=== PATIENT | male | born 1965 | race Caucasian/White ===

== ENCOUNTER 2016-12-12 02:55 | Observation (INO) | payer SELFPAY ==
[2016-12-12 06:02] LABS: Troponin I 0.025 ng/mL (< 0.028)
[2016-12-12 06:50] VITALS: BMI 22.7
[2016-12-12] MEDS ORDERED: Acetaminophen 325 MG TAB PO PRN (07:22)
[2016-12-12] MEDS ORDERED: Ondansetron HCl/PF 4 MG/2 ML Vial IVP PRN (07:22)
[2016-12-12] MEDS ORDERED: Nitroglycerin 0.4 MG TAB (25 Tab Bottle) PO PRN (07:22)
[2016-12-12] MEDS ORDERED: Furosemide 20 MG TAB PO PRN (07:31)
--- NOTE | 2016-12-12 07:51 | HP ---
PRIMARY CARE PROVIDER: Dr. Jasper Barton CHIEF COMPLAINT: The patient was referred to the [facility] by [facility] after transfer from [facility]. HISTORY OF PRESENT ILLNESS: The patient has chest pain, pressure-like, even at rest 5-10 minutes, a ssociated with some shortness of breath, stomach cramps up to 2-3 times a day for the past 3 weeks. He states he is having anxiety attacks which causes chest pains, feels like somebody is out to get him. He states he has had suicidal ideations, he gives no plan. He states he tried suicide 25 year s ago by taking pills. He is an alert, oriented. PAST MEDICAL HISTORY: Coronary artery bypass post-NH 5 years ago, history of cardiomyopathy, hypert ension, dyslipidemia, irritable bowel syndrome, proximal abdominal aorta occlusion, dyslipidemia, ch olecystectomy. He has had PCI with stents post-bypass graft. ALLERGIES: No known drug allergies. SOCIAL HISTORY: He smokes a pack of cigarettes a day. Admits to using marijuana. FAMILY HISTORY: Significant for coronary artery disease in his father. CODE STATUS: Full. No next of kin given for this study. CURRENT MEDICATIONS: Hydralazine 10 mg twice a day, aspirin 325 mg a day, lisinopril 20 mg a day, C oreg 25 mg twice a day, atorvastatin 40 mg a day, Lasix 20 mg a day, clonidine patch TTS 1 on skin d aily, changed weekly. REVIEW OF SYSTEMS: GENERAL: Some dizziness, headaches with present illness. No fever, sweats or chills. EYES: He says he has blurred vision at times. No double vision, flashing lights. ENT: No ear pain or drainage. No nasal bleeding. No trouble swallowing. CARDIAC: See present illness. No orthopnea or paroxysmal nocturnal dyspnea. RESPIRATIONS: He has got a dry cough daily, no wheezing, no marked dyspnea on exertion. GASTROINTESTINAL: Occasional diarrhea, no nausea, vomiting. He does have abdominal cramps with thi s chest pain. GENITOURINARY: No hematuria, dysuria. NEUROLOGICAL: No strokes, seizures or focal weakness. PSYCHIATRIC: See present illness. SKIN: No bruising, bleeding or rash. HEME/LYMPH: No tender or swollen lymph nodes in axilla, inguinal or cervical area. PHYSICAL EXAMINATION: GENERAL: He looks 10-15 years older than stated age, ill kempt. VITAL SIGNS: Blood pressure 177/77, pulse 66, respirations 20, temperature 98.3, O2 sat 98. HEENT: Reveal pupils equal, round, and reactive to light. Extraocular movements are intact. Scler ae white. Tympanic membranes clear. Nose clear. Throat is clear. Oral mucous membranes are wet. Dental hygiene is good. NECK: Supple, no jugular venous distention, adenopathy or thyromegaly. CHEST: Clear to auscultation and percussion. HEART: Regular rate and rhythm. First and second heart sounds are clear. There are no appreciated murmurs or gallops. ABDOMEN: Soft, bowel sounds are normal. There is no hepatosplenomegaly, no mass, no rebound, no br uits. EXTREMITIES: No cyanosis, clubbing or edema. PULSES: Carotid, radial, femoral, and dorsalis pedis pulses symmetric and palpable. SKIN: The skin is warm and dry, no bruises or rash. HEME/LYMPH: No tender or swollen lymph nodes in axilla, inguinal or cervical area. NEUROLOGIC: Cranial nerves II-XII are intact. Deep tendon reflexes symmetric. X-RAY FINDINGS: Chest x-ray reviewed by me, no CHF, infiltrate or cardiomegaly. EKG, reviewed by falguni lewis, regular sinus rhythm, possible old inferior infarct, complete right bundle branch block, reviewed by me. LABORATORY: Laboratory done in [place]; white count 13.5, hemoglobin 14.1, platelet count 261, 000. INR 1.1. Comp metabolic profile essentially normal, chloride 111, CO2 21. BNP is 149. Cardi ac enzymes normal x2. ADMITTING DIAGNOSES: 1. Chest pain. 2. Anxiety, depression with suicidal ideation. 3. Coronary artery disease. 4. Continuing tobacco abuse. 5. Hypertension. 6. Dyslipidemia. PLAN: 1. Reinstitute medicines. 2. Probable consult to Cardiology for medical clearance. If all else is good we will proceed with [facility] referral.
[2016-12-12 08:05] LABS: Troponin I 0.019 ng/mL (< 0.028)
[2016-12-12] MEDS ORDERED: Aspirin 325 MG TAB PO SCH (09:00)
[2016-12-12] MEDS ORDERED: Non-Formulary Item 1 EACH (Nifedipine [Nifedipine Er] 90 MG) PO SCH (09:00)
[2016-12-12] MEDS ORDERED: Non-Formulary Item 1 EACH (Hydralazine Hcl [Hydralazine Hcl] 100 MG) PO SCH (09:00)
[2016-12-12] MEDS ORDERED: NIFEdipine XL 90 MG TAB PO SCH (09:00)
[2016-12-12] MEDS: Aspirin 325 MG TAB PO SCH (10:48)
[2016-12-12] MEDS: Bupropion 150 MG SR TAB PO SCH ×2 (10:48→20:57)
[2016-12-12] MEDS: Carvedilol 25 MG TAB PO SCH ×2 (10:49→20:57)
[2016-12-12] MEDS ORDERED: Communication Order-Pharmacy FS SCH (12:45)
--- NOTE | 2016-12-12 13:54 | CON ---
DATE OF CONSULTATION: 12/12/2016 REFERRAL PHYSICIAN: Dr. Ng PRIMARY CARE PHYSICIAN: Dr. Jasper Barton PRIMARY HOT PACKER: Dr. Tanisha Stewart REASON FOR CONSULTATION: Chest pain. HISTORY OF PRESENT ILLNESS: Mr. Justin is a 51-year-old male with significant history of manic depression, coronary artery disease with a history of coronary artery bypass grafting and multiple stent placement, high blood pressure, hypertension, severe peripheral vascular disease. The patient was discharged from [facility] in 07/2016 due to chest pain. At that time his stress test in 07/2016 showed normal prior to the discharge to home. Since then he has had intermittent chest pain and heaviness all over the middle of his chest. Then, about last few weeks ago, he started to experience heaviness and pressure-like pain all over his chest, accompanied with shortness of breath and dizziness. On 12/12/2016 he started having those symptoms with pain in the upper back and numbness in the left shoulder, nausea, dizziness and cold sweats and shivering-like sensation from inside, therefore, the patient decided to present to the [facility] in [facility] for further studies and treatment. During the Cardiology consultation assessment, he is still complained those symptoms. At this time, he denied any chest pain or heaviness or discomfort in his chest or palpitations or fluttering in his chest or any other symptoms. However, sometimes he feels pressure-like symptoms when he is stressed out. He has a history of a coronary artery bypass graft in 2012. Prior to that, the patient has a history of a myocardial infarction. He underwent first stent placement x1 in 2005, second one in 2016 and third one in 2008. He has had a total of 4 stent placements. In 2012 he underwent cardiac catheterization which revealed severe coronary artery disease with subtotal stenosis of large intermediate branch and also right coronary artery which had previous stents and also 100% occlusion of the left circumflex and severe distal aortic disease with peripheral vascular disease which may need intervention. However, he has not followed up with any food safety field specialist since then. He denied any intervention except a coronary artery bypass in 2012. He was diagnosed as manic depression when he was around 25-26 years old when he tried suicide. At that time he was on Prozac, but he has stopped taking the medicine after 1 year because he was very drowsy and he could not function well with the medicine. His last echocardiogram was done in 2014 which shows EF of 55-60% with grade II diastolic dysfunction with biatrial enlargement and moderate to severe mitral regurgitation. He noticed intermittent edema in the bilateral lower extremities , but he denies any pain in his bilateral calves when he is walking. At this time, the patient has a sitter in his room for suicidal precaution. PAST MEDICAL HISTORY: 1. Coronary artery bypass in 2012 2. Multiple stent placements, total of 4 stents from [id number]. 3. History of cardiomyopathy with moderate to severe mitral valve regurgitation. 4. Hypertension. 5. Dyslipidemia. However, he is not taking any cholesterol medication at this time. 6. Irritable bowel syndrome. 7. Paroxysmal abnormal aorta occlusion. 8. History of manic depression. PAST SURGICAL HISTORY: Cholecystectomy in 2002. FAMILY HISTORY: There is a significant history for coronary artery disease, cerebrovascular accident, hypertension, diabetes in both sides, paternal and maternal side. SOCIAL HISTORY: He lives with his . He has 1 child who lives well. He used to drink. He quit drinking since 2005. He still smokes a pack of the day. He also uses marijuana almost every day when he gets really stressed out and prevent attempted suicide. Last use was day before yesterday. ALLERGIES: He is allergic to PROZAC which makes drowsy and he could not function well. REVIEW OF SYSTEMS: The following complete review of systems was negative, unless otherwise mentioned in the HPI or below. CONSTITUTIONAL: Weight loss or gain, sense of well being, exercise tolerance. SKIN: Negative rash, itching, change in hair growth or loss, nail changes, breast lumps, tenderness, swelling, nipple discharge. EYES: Vision change, double vision, tearing, blind spots, pain. ENT: Headache, vertigo, lightheadedness, nose bleeding or obstruction, discharge, dental difficulties, gingival bleeding, dentures, neck stiffness, pain, tenderness, mass in the thyroid or other areas. CARDIOVASCULAR: Palpitations, syncope, dyspnea on exertion, orthopnea, nocturnal dyspnea, cyanosis, claudication. RESPIRATORY: Shortness of breath, pain, wheezing, stridor, cough, hemoptysis. GASTROINTESTINAL: Positive for poor appetite, and he has heartburn almost every time after eating. Negative to abdominal pain, nausea, vomiting, jaundice , recent change in bowel habit, but he complained of constipation. He uses the bathroom once every 2 or 3 days. GENITOURINARY: Urgency, frequency, dysuria, nocturia, hematuria, polyuria, oliguria, having urine, change in size of stream, dribbling, acute retention or incontinence. MUSCULOSKELETAL: Pain, swelling, redness or heat of muscle or joint, limitation of motion, muscular weakness, atrophy, cramps. NEUROLOGIC: Seizure, conversion, paralysis, tremor, incoordination, difficulty with memory or speech. PSYCHIATRIC HISTORY: Positive emotional problem, anxiety and depression. He mentioned that he cannot go out, he feels panicky when somebody tried to reach him or call him. PHYSICAL EXAMINATION: VITAL SIGNS: Blood pressure 177/77, heart rate 66, temperature 98.3, O2 sat 98 % with room air. GENERAL: Well-developed, without acute distress at this moment. However, he has a sitter at the bedside for suicidal precaution. HEAD: Normocephalic, atraumatic. EYES: Extraocular muscles movements are intact. ENT: Oral and nasal mucosa are moist without lesion. NECK: No JVD. Neck is supple and normal range of motion. LUNGS: Clear to auscultate bilaterally. No wheezing, rales or rhonchi noted. CARDIOVASCULAR: Regular rate and rhythm, normal S1, S2. There are no S3 or S4. There is significant murmur in the left upper mid sternal border, but no hives, thrill, bruit or rub noted. There are 2+ bilateral dorsalis pedis, posterior tibial, and popliteal pulses are present. Carotid pulse present with a bruit on the right carotid artery. There is no edema in his bilateral lower extremities. ABDOMEN: Soft, nontender or mass to palpitations and nondistended. Bowel sounds are present. MUSCULOSKELETAL: Able to move all extremities. No calf tenderness. SKIN: Warm and dry. No skin rash, lesion or bruise noted. NEUROLOGY: Alert, oriented x4, awake. Nonfocal. PSYCHIATRIC: Mood, affect is unstable. During the interview, he started crying when he expressed about his depression. EKG; 12 lead EKG at the ER revealed sinus rhythm with right bundle joce block with heart rates 60s with no significant ST segment change, possible old inferior infarct. LABORATORY: Troponin level was 0.025 and 0.019. Chest x-ray revealed no acute cardiopulmonary abnormality. ASSESSMENT AND PLAN: 1. Chest pain. Although the patient's stress test in 07/2016 was negative and 2 troponin levels were negative, due to his cardiovascular history, it will be beneficial for him to undergo another cardiac catheterization. I would like to discuss with Dr. Stewart for further recommendations. 2. History of manic depression. At this time, the sitter at bedside for suicide precaution after he expressed he would like to receive some assistance or help treatment for his depression and anxiety issues. According to his primary care doctor he is going to have [facility] referral as soon as he is discharged from this hospital. 3. Coronary artery disease with history of coronary artery bypass graft and multiple stent placements. We would like to continue to monitor on telemetry. 4. Pulmonary vascular disease. Cardiac catheterization in 2012 revealed severe distal aortic disease with peripheral vascular disease which may require intubation, it is beneficial for him to have another cardiac catheterization in to reevaluate. I would like to discuss with Dr. Stewart 5. Hypertension. I would like to the patient's lisinopril. I would like to start Norvasc 5 mg 1 tablet daily and continue to monitor his blood pressure. 6. Dyslipidemia. He is on a cholesterol, atorvastatin 40 mg once a day. His LDL in 2014 was 169. 7. Tobacco abuse. Tobacco cessation education was given to the patient. Thank you very much allowing the Cardiology Service to participate in the care of the patient. We will follow along with the patient's care team and make further recommendations as appropriate. [facility]
[2016-12-12] MEDS ORDERED: Nitroglycerin 2% Ointment 1 INCH/1 GM Packet TOP SCH (14:00)
[2016-12-12] MEDS ORDERED: Labetalol HCl 100 MG/20 ML VIAL SLOW IVP PRN (19:56)
[2016-12-12] MEDS ORDERED: Non-Formulary Item 1 EACH (Lisinopril [Zestril] 40 MG) PO SCH (21:00)
[2016-12-12] MEDS ORDERED: Lisinopril 20 MG TAB PO SCH (21:00)
[2016-12-12] MEDS ORDERED: Atorvastatin Calcium 40 MG TAB PO SCH (21:00)
[2016-12-12 22:35] LABS: Amphetamine Not Detected (NotDetected); Methadone Not Detected (NotDetected); Methamphetamine Not Detected (NotDetected)
--- NOTE | 2016-12-12 22:35 | PDOC.CTH ---
Cardiology Progress Note - Subjective The pt. was seen and evaluated by me. Please refer to the consult dictation by the DIRECTOR ENERGY. This unfortunate pt. hs severe CAD and is s/p CABG and priort coronary stent placement.He continues to smoke and is noncompliant with follow up and taking his medicayions. This seems to be in part due to lack of finances He has severe PVD and I could not palpate pedal or popliteal pulses. This PVD was noted on his prior cardiac cath. Due to his multiple risk factors, I believe it will be reasonable tore-evaluate his coronary anatomy and PVD. I explained the procedure and risks to him to include bleeding,infection,renal insuff., CVA, [place] or . He is agreeable to proceed. I will plan for cardiac cath in AM. - ROS shortness of breath - Objective Vital Signs Temp Pulse Resp BP BP Pulse Ox 12/12/16 22:15 69 197/84 H 12/12/16 21:00 98.3 F 60 16 186/77 H 97 12/12/16 20:57 183/77 H 12/12/16 20:56 63 186/77 H 12/12/16 20:10 98.3 F 63 16 12/12/16 16:29 63 183/77 H 12/12/16 10:48 66 177/77 H Weight 145 lb 3.2 oz 12/11/16 12/12/16 12/13/16 06:59 06:59 06:59 Intake Total 360 Balance 360 - Physical Examination General/Neuro: alert & oriented x3 Neck: no JVD present Lungs: CTA Heart: RRR Abdomen: no HSM, soft - Labs Troponin/CKMB Troponin I 0.019 ng/mL (< 0.028) 12/12/16 07:27 - Assessment/Plan I agree with the A/P outlined by the DIRECTOR ENERGY. Plan for cath in AM.
[2016-12-13] MEDS: Carvedilol 25 MG TAB PO SCH (05:34)
[2016-12-13] MEDS: Bupropion 150 MG SR TAB PO SCH (05:35)
[2016-12-13] MEDS ORDERED: Lidocaine 1% (PF) 30 ML VIAL ONE (07:43)
[2016-12-13] MEDS ORDERED: Nitroglycerin 100MG/250ML BOT 250 ML ONE (07:58)
[2016-12-13] MEDS ORDERED: Heparin 10,000 UNITS/1 ML VIAL ONE (07:59)
[2016-12-13] MEDS ORDERED: FLU VACC QS2017-18 36 mo. & older 0.5 ML SYRINGE IM ONE (09:00)
--- NOTE | 2016-12-13 09:07 | PDOC.PN ---
- Subjective Encounter Start Date: 12/13/16 Encounter Start Time: 09:05 Subjective: post cardiac cath, no pain - Objective Resuscitation Status: Resuscitation Status FULL:Full Resuscitation MAR Reviewed: Yes Vital Signs & Weight: Vital Signs (12 hours) Temp Pulse Resp BP BP Pulse Ox 12/13/16 05:35 60 12/13/16 05:34 60 12/13/16 04:00 98.1 F 60 18 125/55 L 97 12/12/16 22:15 69 197/84 H Weight Weight 135 lb 8 oz I&O: 12/12/16 12/13/16 12/14/16 06:59 06:59 06:59 Intake Total 600 Output Total 950 Balance -350 Phys Exam - Physical Examination Constitutional: NAD Neck: no JVD Respiratory: clear to auscultation bilateral Cardiovascular: RRR, no significant murmur Gastrointestinal: soft Musculoskeletal: no edema Dx/Plan (1) Chest pain Code(s): R07.9 - CHEST PAIN, UNSPECIFIED Status: Acute Qualifiers: Chest pain type: precordial pain Qualified Code(s): R07.2 - Precordial pain (2) CAD (coronary artery disease) Code(s): I25.10 - ATHSCL HEART DISEASE OF [place] CORONARY ARTERY W/O ANG PCTRS Status: Chronic Qualifiers: Coronary Disease-Associated Artery/Lesion type: [place] artery [place] vs. transplanted heart: [place] heart Associated angina: angina presence unspecified Qualified Code(s): I25.10 - Atherosclerotic heart disease of [place] coronary artery without angina pectoris (3) HTN (hypertension) Code(s): I10 - ESSENTIAL (PRIMARY) HYPERTENSION Status: Chronic Qualifiers: Hypertension type: essential hypertension Qualified Code(s): I10 - Essential (primary) hypertension (4) Dyslipidemia Code(s): E78.5 - HYPERLIPIDEMIA, UNSPECIFIED Status: Chronic - Plan post cath- discuss with cardiology -: cont asa, statin, bblocker, ZENY * .
[2016-12-13] MEDS ORDERED: traMADol HCl 50 MG TAB PO PRN (09:22)
[2016-12-13] MEDS ORDERED: Acetaminophen/Codeine 30-300mg Tablet PO PRN ×2 (09:22)
[2016-12-13] MEDS ORDERED: Nitroglycerin 0.4 MG TAB (25 Tab Bottle) SL PRN (09:22)
[2016-12-13] MEDS ORDERED: Sodium Chloride 0.9% 200 ML IV SCH (09:22)
[2016-12-13] MEDS: Aspirin 325 MG TAB PO SCH (10:30)
[2016-12-13] MEDS ORDERED: Iopamidol 370 76% 100 ML VIAL ONE (14:34)
--- NOTE | 2016-12-13 17:56 | DIS ---
DATE OF ADMISSION: 12/12/2016 DATE OF DISCHARGE: 12/13/2016 DISPOSITION: Discharged home. PRIMARY CARE PROVIDER: Jasper Barton D.O. FINAL DIAGNOSES: Chest pain, coronary artery disease, dyslipidemia, hypertension, gastroesophageal reflux disease, suicidal ideations. DISCHARGE MEDICATIONS: Same as his home medicines. Bupropion 150 twice a day, Lipitor 40 mg a day, Imdur 60 mg twice a day, Lasix 20 mg a day, Coreg 25 mg twice a day, NicoDerm patch 14 mg daily as needed, Zestril 40 mg a day, nifedipine 90 mg a day, hydralazine 100 mg 3 times a day, Catapres 0.1 mg q.8 hours, aspirin 325 mg a day. ALLERGIES: No known drug allergies. PENDING AT THE TIME OF DISCHARGE: Nothing. CODE STATUS: FULL. HOSPITAL COURSE: The patient admitted through [facility] with complaints of pressure d chest pain, shortness of breath, stomach cramps, anxiety attacks which caused that. He stated he has had suicidal ideations, but had no plan. He was placed in the hospital and troponins were unrev ealing. Toxicology revealed only positive THC. He had a cardiac catheterization today by Dr. Ag Stewart, who saw him in consultation, which revealed extensive disease with medical management only ind icated. He was seen by [facility] who evaluated him and considered him to be safe to discharge with follo w up with [facility]. DIET: Heart healthy. PLAN: Follow up with Dr. Barton in 7 days. Follow up per [facility].
[2016-12-13 21:43] VITALS: TEMP 98.2
[2016-12-13 21:50] VITALS: BP 176/68
== END 2016-12-13 19:44 | disposition home or self-care (01) ==
LOC: ERS 02:55 → 2NO 05:18
PROVIDERS: ADMIT Internal Medicine; ATTEND Internal Medicine
DX: R07.9 Chest pain, unspecified (principal); I25.10 Atherosclerotic heart disease of native coronary artery without angina pectoris; E78.5 Hyperlipidemia, unspecified; K21.9 Gastro-esophageal reflux disease without esophagitis; R45.851 Suicidal ideations; F41.0 Panic disorder [episodic paroxysmal anxiety]; I25.2 Old myocardial infarction; I11.9 Hypertensive heart disease without heart failure; K58.9 Irritable bowel syndrome, unspecified; I74.09 Other arterial embolism and thrombosis of abdominal aorta; F17.210 Nicotine dependence, cigarettes, uncomplicated; F12.90 Cannabis use, unspecified, uncomplicated; I73.9 Peripheral vascular disease, unspecified; R60.0 Localized edema; I34.0 Nonrheumatic mitral (valve) insufficiency; Z88.8 Allergy status to other drugs, medicaments and biological substances; F31.9 Bipolar disorder, unspecified; Z79.82 Long term (current) use of aspirin; Z79.899 Other long term (current) drug therapy; Z95.1 Presence of aortocoronary bypass graft; Z91.5 Personal history of self-harm; Z82.49 Family history of ischemic heart disease and other diseases of the circulatory system
CPT/HCPCS: 36415; 76942; 80306; 93459; 93567; 93798; 96374; 99285; A4216; C1769; G0378; J1644; J2001

== ENCOUNTER 2017-08-07 17:22 | Inpatient (IN) | payer SELFPAY ==
[2017-08-07] MEDS ORDERED: Nitroglycerin 2% Ointment 1 INCH/1 GM Packet ONE (17:45)
[2017-08-07] MEDS ORDERED: Lorazepam 2 MG/ML VIAL ONE (17:51)
--- NOTE | 2017-08-07 18:35 | RAD ---
SINGLE VIEW OF THE CHEST: 08/07/17 COMPARISON: 03/09/17. 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 FINDINGS: Single view of the chest shows a cardiomediastinal silhouette which is upper limits of normal in size . The patient is status post sternotomy. There is stable scarring in the left mid thorax. There is po ssibly a loculated pneumothorax in the left lung base. This has not significantly changed compared to the prior examination. No mediastinal shift is seen. Degenerative changes are seen in the spine. IMPRESSION: Scarring in the left thorax. There is potentially a loculated pneumothorax in the left lung base with out significant shift of the mediastinum. Code T POS: [facility]
[2017-08-07 18:37] LABS: Bilirubin Negative (Negative); Blood, Urine Negative (Negative); Clarity CLEAR (Clear); Glucose, Urine (Dipstick) Negative (Negative); Leukocyte Trace (Negative); Nitrite Negative (Negative); Protein, Urine (Dipstick) 100 mg/dL (Neg-Trace)
[2017-08-07 18:37] LABS: ALT (SGPT) 12 U/L (8-55); AST (SGOT) 19 U/L (5-34); Albumin 4.1 g/dL (3.5-5.0); Alkaline Phosphatase 126 U/L (40-150); Anion Gap 12 mmol/L (10-20); BUN (Urea Nitrogen) 18 mg/dL (8.4-25.7); Bilirubin, Total 0.7 mg/dL (0.2-1.2); CK (CPK) 121 U/L (30-200); Calc. Creatinine Clearance 0 mL/min (70-130); Calcium 9.5 mg/dL (7.8-10.44); Carbon Dioxide 21 mmol/L (22-29); Chloride 108 mmol/L (98-107); Estimated GFR-MDRD 72; Globulin 3.1 g/dL (2.4-3.5); Glucose 162 mg/dL (70-105); Potassium 3.7 mmol/L (3.5-5.1); Protein, Total 7.2 g/dL (6.0-8.3); Sodium 137 mmol/L (136-145)
[2017-08-07 18:38] LABS: Bacteria/HPF None Seen HPF (None Seen); Hyaline Casts/LPF 0-3 HYALINE CAST LPF (0-3 Hyaline); Pathc Cast-AUWi Flag 0.14 (0-2.49); RBC/HPF 0-3 HPF (0-3); Squamous Epithelial 0-3 HPF (0-3)
[2017-08-07 18:44] LABS: CKMB 5.7 ng/mL (0-6.6)
[2017-08-07 18:48] LABS: Hemoglobin 15.4 g/dL (14.0-18.0); Mean Corpuscular HGB CONC 34.5 g/dL (32.0-36.0); Mean Corpuscular Hemoglobin 33.4 pg (27.0-31.0); Mean Corpuscular Volume 96.9 fl (80.0-94.0); Mean Platelet Volume 9.7 fL (7.4-10.4); Platelet Count 192 thou/uL (130-400); RBC Distribution Width 12.9 % (11.5-14.5); Red Blood Cell (RBC) Count 4.61 mill/uL (4.70-6.10); White Blood Cell (WBC) Count 21.3 thou/uL (4.8-10.8)
[2017-08-07 18:56] LABS: Band 7 % (5-11); Eosinophils 1 % (0-10); Large Platelets SLIGHT; Lymphocytes 9 % (21-51); MDiff Complete? YES; Monocytes 1 % (0-10); Neutrophil 80 % (42-75); PLT Morphology Comment Appears Adequate; Reactive Lymphocytes 2 % (0-10); Target Cells SLIGHT = 2-5 cells (100X) (0-1/hpf)
[2017-08-07 18:59] LABS: Troponin I 0.611 ng/mL (< 0.028)
--- NOTE | 2017-08-07 20:14 | CT ---
CT OF THE CHEST WITHOUT CONTRAST 08/07/17 COMPARISON: 07/24/16. HISTORY: Chest pain that began two hours ago. Sweating profusely. TECHNIQUE: Multiple contiguous axial images were obtained in a CT of the chest without contrast. Coronal reforma ts were performed. FINDINGS: Scarring is seen in the left lung. There is lucency in the left lung base which may represent hyperae ration. No pneumothorax is seen. Pleural thickening is seen in the left posterior lung. No infiltrate or suspicious pulmonary nodule is seen. The heart is normal in size. calcifications are seen in the coronary arteries and aorta. No hilar or mediastinal lymphadenopathy are appreciated on this noncontrast examination. The left kidney is small and atrophic. The gallbladder has been removed. The other subdiaphragmatic s tructures are unremarkable. The chest wall soft tissues are unremarkable. Degenerative changes are se en in the spine. IMPRESSION: There is scarring in the left lung without evidence of pneumothorax. The abnormality seen on chest x- ray was likely artifact from hyperaeration of the left lower lobe. POS: [facility]
[2017-08-07] MEDS ORDERED: Enoxaparin Sodium 60 MG/0.6 ML SYRINGE ONE (20:39)
[2017-08-07 21:49] LABS: Amphetamine Not Detected (NotDetected); Barbiturates Screen Not Detected (NotDetected); Benzodiazepine Screen Not Detected (NotDetected); Cocaine Metabolite Screen Not Detected (NotDetected); Medtox Control Line Valid? VALID (VALID); Medtox Reader # READER 4; Methadone Not Detected (NotDetected); Methamphetamine Not Detected (NotDetected); Opiate Screen Not Detected (NotDetected); Oxycodone Screen Not Detected (NotDetected); Phencyclidine (PCP) Not Detected (NotDetected); THC/Cannabinoid Screen Detected (NotDetected); Tricyclic Screen Not Detected (NotDetected)
[2017-08-07 22:53] LABS: Troponin I 13.308 ng/mL (< 0.028)
[2017-08-07] MEDS ORDERED: Bisacodyl 5 MG TAB PO PRN (23:41)
[2017-08-07] MEDS ORDERED: Morphine 4 MG/ML VIAL SLOW IVP PRN (23:52)
[2017-08-08] MEDS: Nitroglycerin 0.4 MG TAB (25 Tab Bottle) SL PRN ×2 (00:12→00:30)
[2017-08-08 00:22] VITALS: BMI 20.5
--- NOTE | 2017-08-08 01:18 | HP ---
PRIMARY CARE PROVIDER: Jasper Barton DO CHIEF COMPLAINT: Chest pain. HISTORY OF PRESENT ILLNESS: Mr. Justin is a pleasant 52-year-old gentleman who was seen at [facility] on 08/07/2017. He reports that he was loading his trailer today when he fel t pain in his left shoulder. The pain migrated to his chest. He describes it as retrosternal, curre ntly radiating to the back, neither sharp nor dull, 9/10 at its worst, accompanied by diaphoresis and shortness of breath, but not by lightheadedness. He cannot recall any aggravating or relieving fact ors. He denies any fevers or chills. He denies any nausea or vomiting. He denies any abdominal luz n. REVIEW OF SYSTEMS: All other systems reviewed and found to be negative. PAST MEDICAL HISTORY: Coronary artery disease, status post coronary artery bypass graft; cardiomyopa thy; hypertension; dyslipidemia; irritable bowel syndrome; proximal abdominal aorta occlusion; and dy slipidemia. PAST SURGICAL HISTORY: Coronary artery bypass graft, cholecystectomy, and PCI with stents post-bypas s graft. He did have a cardiac catheterization in 12/2016, at which time, he was found to have a pat ent SVG to PDA and ramus. He also had severe peripheral vascular disease, with occluded external damien acs with collateral flow to the CORPORATE CLAIMS EXAMINER. He was recommended medical management. SOCIAL HISTORY: The patient reports smoking half a pack of cigarettes a day. He denies any alcohol use or recreational drug use. FAMILY HISTORY: Coronary artery disease in his father. ALLERGIES: No known drug allergies. CURRENT MEDICATIONS: Hydralazine 100 mg 3 times a day, aspirin 325 mg daily, lisinopril 40 mg daily, Coreg 25 mg 2 times a day, atorvastatin 40 mg daily, Lasix 20 mg daily, Protonix 40 mg daily, raniti dine 150 mg 2 times a day, clonidine 0.1 mg every 8 hours and isosorbide mononitrate 60 mg daily. PHYSICAL EXAMINATION: GENERAL: Mr. Justin is awake and alert, not in acute distress. VITAL SIGNS: Blood pressure is 159/89, pulse is 91, his breathing at rate of 20 and saturating 94% o n 2 liters of oxygen. He is afebrile. When he presented to the emergency room, had a blood pressure of 230/134 and pulse of 117. EYES: No scleral icterus. No conjunctival pallor. ENT: Moist mucosal membranes. No oropharyngeal erythema or exudates. NECK: Supple, nontender, normal range of movement. Trachea is midline. RESPIRATORY: Accessory muscles of breathing are not active. Chest wall movements are symmetric bila terally. LUNGS: Clear to auscultation without wheeze, rhonchi, or crepitations. CARDIOVASCULAR: S1 and S2 are heard, regular. Peripheral pulses palpable. No carotid bruit, no per icardial rub. ABDOMEN: Soft, nontender, bowel sounds are heard. No hepatomegaly, no splenomegaly. NEUROLOGIC: Cranial nerves II through XII intact. Deep tendon reflexes are 2+. MUSCULOSKELETAL: Power is 5/5 in all 4 extremities. SKIN: No rashes or subcutaneous nodules. LYMPHATIC: No cervical lymphadenopathy. PSYCHIATRIC: Normal mood, normal affect, patient is oriented to person, place, and time. DATABASE: Mr. Justin's labs and investigations were reviewed. I reviewed his electrocardiogram. He is in sinus tachycardia with a depression of ST segments in the anterior leads. I also reviewed his chest x-ray. There are no pulmonary infiltrates. He went on to have a CT scan of the chest because of concern over pneumothorax. There is a scarring in the left lung without evidence of pneumothorax . He has leukocytosis with 21,300 white cells, of which 80% are neutrophils, normal hemoglobin, norm al platelet count, normal sodium, normal potassium, normal creatinine, normal liver profile, elevated BNP of 298.8 and elevated troponin I of 13.308, trending up from 0.611. Urinalysis is positive for trace amount of leukocyte esterase. Urine toxicology screen is positive for cannabinoids. ASSESSMENT AND PLAN: Mr. Justin is a pleasant 52-year-old gentleman who was seen at [facility]. His problem list includes: 1. Chest pain: His presentation is concerning for non-ST elevation myocardial infarction. The vijay ent will be admitted to the hospital for further management. 2. Non-ST elevation myocardial infarction: His case was discussed with the ward assistant production assembly supervisor by emergency room physician. He has received a dose of Lovenox. I will continue him on Lovenox and asp irin for now. 3. Leukocytosis: No clear evidence of infection at this time. The patient is afebrile as well. 4. Hypertensive urgency: Monitor vital signs, titrate antihypertensives as needed. Hypertension is improving. 5. Tobacco abuse: Patient has been counseled regarding tobacco cessation. Start nicotine replaceme nt therapy. 6. Dyslipidemia: Continue statin. Many thanks for allowing me to participate in your patient's care. Please feel free to contact me wi th any questions or concerns. LEVEL OF RISK: High. LEVEL OF COMPLEXITY: High.
[2017-08-08 02:21] LABS: Troponin I 32.471 ng/mL (< 0.028)
[2017-08-08 06:02] LABS: Anion Gap 11 mmol/L (10-20); BUN (Urea Nitrogen) 19 mg/dL (8.4-25.7); Calc. Creatinine Clearance 86 mL/min (70-130); Calcium 9.3 mg/dL (7.8-10.44); Carbon Dioxide 21 mmol/L (22-29); Chloride 110 mmol/L (98-107); Estimated GFR-MDRD Greater than 90; Glucose 107 mg/dL (70-105); Potassium 4.3 mmol/L (3.5-5.1); Sodium 138 mmol/L (136-145)
[2017-08-08 06:42] LABS: #Basophils 0.1 thou/uL (0.0-0.2); #Eosinphils 0.1 thou/uL (0.0-0.7); #Lymphocytes 1.8 thou/uL (1.20-3.40); #Monocytes 1.2 thou/uL (0.11-0.59); #Neutrophils 17.1 thou/uL (1.40-6.50); %Basophils 0.3 % (0.0-1.0); %Eosinophils 0.5 % (0.0-10.0); %Lymphocytes 8.8 % (21.0-51.0); %Neutrophils 84.5 % (42.0-75.0); Hemoglobin 14.6 g/dL (14.0-18.0); Mean Corpuscular HGB CONC 33.2 g/dL (32.0-36.0); Mean Corpuscular Hemoglobin 32.3 pg (27.0-31.0); Mean Corpuscular Volume 97.5 fl (80.0-94.0); Mean Platelet Volume 10.4 fL (7.4-10.4); Platelet Count 185 thou/uL (130-400); RBC Distribution Width 13.1 % (11.5-14.5); Red Blood Cell (RBC) Count 4.52 mill/uL (4.70-6.10); White Blood Cell (WBC) Count 20.2 thou/uL (4.8-10.8)
[2017-08-08] MEDS ORDERED: Aspirin 325 MG TAB PO SCH (09:00)
[2017-08-08] MEDS ORDERED: Zolpidem Tartrate 5 MG TAB PO PRN (09:04)
[2017-08-08] MEDS ORDERED: Furosemide 20 MG TAB PO PRN (09:04)
[2017-08-08] MEDS ORDERED: Metoprolol Tartrate 25 MG TAB PO SCH (09:05)
--- NOTE | 2017-08-08 09:15 | PDOC.PN ---
- Subjective Encounter Start Date: 08/08/17 Encounter Start Time: 09:14 Reports an episode of pain in the left upper back and shoulder are that is better after morphine. Otherwise, no new complaints. - Objective Vital Signs & Weight: Vital Signs (12 hours) Temp Pulse Resp BP Pulse Ox 08/08/17 07:33 98.5 F 89 16 190/91 H 95 08/08/17 04:00 98.2 F 92 20 93 L 08/08/17 00:35 95 08/08/17 00:05 98.5 F 87 20 167/85 H 95 Weight Weight 135 lb 1.6 oz I&O: 08/07/17 08/08/17 08/09/17 06:59 06:59 06:59 Intake Total 0 Output Total 250 Balance -250 Result Diagrams: 08/08/17 05:12 08/08/17 05:12 Phys Exam - Physical Examination Constitutional: NAD HEENT: PERRLA, moist MMs, oral pharynx no lesions Neck: no nodes Respiratory: no wheezing, no rhonchi Minimal scattered rales Cardiovascular: RRR, no significant murmur Gastrointestinal: soft, non-tender, no distention, positive bowel sounds Musculoskeletal: no edema, pulses present Psychiatric: normal affect Dx/Plan (1) NSTEMI (non-ST elevated myocardial infarction) Code(s): I21.4 - NON-ST ELEVATION (NSTEMI) MYOCARDIAL INFARCTION Status: Acute Plan: Patient has had continual increase of troponin. Will continue to monitor those. Cardiology consulted. Nitropaste in place. Concerning for the NSVT and episode of pain this morning. Had cath in 2017. Will likely need cath again. (2) NSVT (nonsustained ventricular tachycardia) Code(s): I47.2 - VENTRICULAR TACHYCARDIA Status: Acute Plan: Post-RI. Will check mag level and restart his home meds. Home meds include b- herbie. (3) CAD (coronary artery disease) Code(s): I25.10 - ATHSCL HEART DISEASE OF [place] CORONARY ARTERY W/O ANG PCTRS Status: Chronic Qualifiers: Coronary Disease-Associated Artery/Lesion type: [place] artery [place] vs. transplanted heart: [place] heart Associated angina: angina presence unspecified Qualified Code(s): I25.10 - Atherosclerotic heart disease of [place] coronary artery without angina pectoris (4) HTN (hypertension) Code(s): I10 - ESSENTIAL (PRIMARY) HYPERTENSION Status: Chronic Qualifiers: Hypertension type: essential hypertension Qualified Code(s): I10 - Essential (primary) hypertension Plan: Not well controlled now. Will resume his home meds and monitor for need for additional meds. (5) Dyslipidemia Code(s): E78.5 - HYPERLIPIDEMIA, UNSPECIFIED Status: Chronic Plan: Resume home meds. (6) Tobacco abuse Code(s): Z72.0 - TOBACCO USE Status: Acute (7) Leukocytosis Code(s): D72.829 - ELEVATED WHITE BLOOD CELL COUNT, UNSPECIFIED Status: Acute Plan: No evidence of infection. CT chest was clear. May be demargination reaction to RI. - Plan * Above.
[2017-08-08 10:20] LABS: Troponin I 41.481 ng/mL (< 0.028)
[2017-08-08] MEDS ORDERED: Nitroglycerin 2% Ointment 1 INCH/1 GM Packet ONE (10:21)
[2017-08-08] MEDS: Enoxaparin Sodium 60 MG/0.6 ML SYRINGE SC SCH ×2 (10:26→21:14)
[2017-08-08] MEDS: Nicotine 14 MG PATCH TD SCH (10:26)
[2017-08-08] MEDS: Aspirin 325 MG TAB PO SCH ×2 (10:26→10:31)
[2017-08-08] MEDS ORDERED: Iopamidol 370 76% 100 ML VIAL ONE (11:35)
[2017-08-08 13:55] LABS: Critical Call Chem Troponin I RESULT DECREASING; Troponin I 36.307 ng/mL (< 0.028)
[2017-08-08] MEDS ORDERED: Heparin 10,000 UNITS/1 ML VIAL ONE (14:00)
[2017-08-08] MEDS ORDERED: Verapamil 5 MG/2 ML VIAL ONE (14:00)
[2017-08-08] MEDS ORDERED: Lidocaine 1% (PF) 30 ML VIAL ONE (14:01)
[2017-08-08] MEDS ORDERED: Nitroglycerin 100MG/250ML BOT 250 ML ONE (14:01)
[2017-08-08] MEDS ORDERED: Non-Formulary Item 1 EACH (Hydralazine Hcl [Hydralazine Hcl] 100 MG) PO SCH (15:00)
[2017-08-08] MEDS ORDERED: Nitroglycerin 0.4 MG TAB (25 Tab Bottle) SL PRN (16:25)
[2017-08-08] MEDS ORDERED: traMADol HCl 50 MG TAB PO PRN (16:25)
[2017-08-08] MEDS ORDERED: Sodium Chloride 0.9% 200 ML IV SCH (16:25)
[2017-08-08] MEDS ORDERED: Acetaminophen/Codeine 30-300mg Tablet PO PRN ×2 (16:25)
[2017-08-08] MEDS: hydrALAZINE 25 MG TAB PO SCH ×2 (17:41→21:15)
[2017-08-08] MEDS: cloNIDine 0.1 MG TAB PO SCH ×2 (17:42→22:12)
[2017-08-08] MEDS ORDERED: Atorvastatin Calcium 40 MG TAB PO SCH (21:00)
[2017-08-08] MEDS ORDERED: Lisinopril 20 MG TAB PO SCH (21:00)
[2017-08-08] MEDS ORDERED: Non-Formulary Item 1 EACH (Lisinopril [Zestril] 40 MG) PO SCH (21:00)
[2017-08-08] MEDS: Carvedilol 25 MG TAB PO SCH (21:14)
[2017-08-08] MEDS: Nitroglycerin 2% Ointment 1 INCH/1 GM Packet TOP SCH (21:16)
--- NOTE | 2017-08-09 00:55 | CON ---
DATE OF CONSULTATION: 08/08/2017 HISTORY OF PRESENT ILLNESS: A 52-year-old patient with history of known coronary artery disease, sta tus post bypass surgery with a history of chest pain and slightly elevated cardiac enzymes. He was s een in the emergency room after he had some chest pain, which radiated to the left shoulder yesterday into the left neck. He took some nitroglycerin and also was given some morphine which did not compl etely relieve his pain. He said the nitroglycerin did help some. He has been unloading a truck when he developed the discomfort. He has been doing relatively well. He does not follow up in the offic e. His bypass surgery was about I believe several years ago, he came in exactly when it was done [facility] years ago. He did undergo a repeat cardiac catheterization in 12/2016 and was found to have pat ent saphenous vein graft to the ramus and also to the distal right coronary artery. We were unable t o engage into the JORDAN at that time, but did not appear to be having any anterior ischemia. Ejection fraction was normal. He has totally occluded aorta, we were unable to gain access from the lower ex tremities and has had to go to the arm. He then presented again today with further chest discomfort. He continues to smoke. He also uses marijuana on a daily basis. His cardiac enzymes have continue d to increase and he continued to have some shoulder discomfort. PAST MEDICAL HISTORY: Significant for coronary artery disease, bypass surgery, history of hypertensi on, dyslipidemia, irritable bowel syndrome. He has a totally occluded distal aorta. He has dyslipid emia. SOCIAL HISTORY: He continues to smoke. He uses marijuana on a daily basis. He collects old junk. FAMILY HISTORY: Positive for coronary artery disease. ALLERGIES: None. MEDICATIONS: Aspirin 325 mg a day, Coreg 25 mg b.i.d., hydralazine 100 mg t.i.d., lisinopril 40 mg a day, Lipitor 40 mg a day, Lasix 20 mg a day, Protonix, ranitidine, clonidine and isosorbide mononitr ate 60 mg a day. REVIEW OF SYSTEMS: A 12-point review of systems is unremarkable except for some fatigue in the lower extremity if he over exerts himself or walks too far and also for the recent onset of the chest disc omfort. PHYSICAL EXAMINATION: GENERAL: Reveals a middle-aged gentleman who appears actually older than the stated age. VITAL SIGNS: Blood pressure was elevated earlier at 230/134. At the time of the physical examsaray paul, the blood pressure was 190/91 and heart rate was in the 80s and shows a sinus rhythm with right bu ndle-branch block. HEENT: Showed the head to be normocephalic and atraumatic. He has bilateral carotid bruits. He als o has a left subclavian bruit. LUNGS: His chest has a slight decreased breath sounds, but there were no rales, rhonchi or wheezing noted at this time. CARDIOVASCULAR: Exam revealed a regular rate and rhythm with an S1 and S2. He has a systolic murmur of the aortic area, but otherwise no significant murmurs, heaves, thrills, bruits or rubs. ABDOMEN: Soft and flat. His abdominal bruit was noted. EXTREMITIES: Femoral pulses are not palpable. Lower extremity pulses are also not palpable. There is no edema. NEUROLOGIC: The patient appears to be intact. LABORATORY DATA: Shows increasing cardiac enzyme which originally was 0.6, it has trended up to more than 13 and actually I believe was 30 at the time of the consultation, he continues to have some mil d discomfort in the left shoulder. His urinalysis is positive for small amount of leukocytes. He al so has a positive drug screen for cannabis. His white blood cell count is 20.2, hemoglobin 14.6. Hi s creatinine is 0.87, potassium is 4.3 and cardiac enzymes had increased up to 32.471 on the troponin I. IMPRESSION: 1. Non-ST segment elevation myocardial infarction in this gentleman who has history of coronary maria antonia ry disease, bypass surgery, who continues to smoke. He has been noncompliant with followups in the o ffice. Most likely, he will best be served by undergoing repeat cardiac catheterization as a definit leroy tool to evaluate his coronary artery status and may be difficult to obtain access. We will try f rom the left side rather than the right side. Since we were unable to gain access in the left university internship al mammary artery from the right side previously, we may be able to access from the left side. 2. History of leukocytosis. It is uncertain as to the etiology whether he has had elevated white bl ood cell counts in the past. 3. History of tobacco abuse. He has been advised to stop smoking altogether. 4. Illicit drug use. He has also been advised to stop doing this. 5. Hypercholesterolemia. We will continue his statin medications. 6. Noncompliance with followups. He will be firmly encouraged to continue his followups, so that we can monitor him more carefully. He will undergo cardiac catheterization later today. He understand s the procedure and the risks include bleeding, infection, possibly a myocardial infarction, CVA, merrick al insufficiency, allergic contrast reaction, and the possibility of . We will plan for a cardi ac catheterization later today unless he becomes more urgent, he appears to be relatively stable at t his time. The EKG does not show any acute ST segment elevation.
[2017-08-09 05:37] LABS: Anion Gap 13 mmol/L (10-20); BUN (Urea Nitrogen) 26 mg/dL (8.4-25.7); Calc. Creatinine Clearance 71 mL/min (70-130); Calcium 8.6 mg/dL (7.8-10.44); Carbon Dioxide 21 mmol/L (22-29); Chloride 106 mmol/L (98-107); Estimated GFR-MDRD 74; Glucose 108 mg/dL (70-105); Potassium 3.9 mmol/L (3.5-5.1); Sodium 136 mmol/L (136-145)
[2017-08-09 06:10] LABS: Band 3 % (5-11); Hemoglobin 13.5 g/dL (14.0-18.0); Lymphocytes 12 % (21-51); MDiff Complete? YES; Macrocytosis SLIGHT = 6-15 cells (100X) (0-5/hpf); Mean Corpuscular HGB CONC 32.1 g/dL (32.0-36.0); Mean Corpuscular Hemoglobin 31.1 pg (27.0-31.0); Mean Platelet Volume 10.1 fL (7.4-10.4); Metamyelocyte 1 % (0-0); Monocytes 5 % (0-10); Neutrophil 78 % (42-75); PLT Morphology Comment Appears Adequate; Platelet Count 182 thou/uL (130-400); Reactive Lymphocytes 1 % (0-10); Red Blood Cell (RBC) Count 4.36 mill/uL (4.70-6.10); White Blood Cell (WBC) Count 16.8 thou/uL (4.8-10.8)
[2017-08-09] MEDS: cloNIDine 0.1 MG TAB PO SCH ×2 (06:11→15:11)
[2017-08-09] MEDS ORDERED: Non-Formulary Item 1 EACH (Nifedipine [Nifedipine Er] 90 MG) PO SCH (09:00)
[2017-08-09] MEDS ORDERED: Clopidogrel Bisulfate 75 MG TAB PO SCH (09:00)
[2017-08-09] MEDS ORDERED: NIFEdipine XL 90 MG TAB PO SCH (09:00)
[2017-08-09] MEDS: hydrALAZINE 25 MG TAB PO SCH ×2 (09:40→15:11)
[2017-08-09] MEDS: Aspirin 325 MG TAB PO SCH (09:42)
[2017-08-09] MEDS: Nicotine 14 MG PATCH TD SCH (09:43)
[2017-08-09] MEDS: Carvedilol 25 MG TAB PO SCH (09:43)
[2017-08-09] MEDS: Enoxaparin Sodium 60 MG/0.6 ML SYRINGE SC SCH (09:43)
[2017-08-09] MEDS: Nitroglycerin 2% Ointment 1 INCH/1 GM Packet TOP SCH (09:45)
--- NOTE | 2017-08-09 10:50 | PDOC.CTH ---
<Perri Phillips - Last Filed: 08/09/17 12:10> Cardiology Progress Note - Subjective The pt seen and examined. No overnight events. No cardiac complaints. He denied any pain to his BLE. - Objective Vital Signs Temp Pulse Resp BP BP Pulse Ox 08/09/17 09:43 131/59 L 08/09/17 09:40 66 131/59 L 08/09/17 06:11 125/61 08/09/17 03:45 99.1 F 78 17 116/58 L 93 L 08/09/17 01:36 92 L 08/09/17 00:00 98.2 F 74 18 111/55 L 95 Weight 135 lb 1.6 oz 08/08/17 08/09/17 08/10/17 06:59 06:59 06:59 Intake Total 0 360 Output Total 250 200 Balance -250 160 - Physical Examination General/Neuro: alert & oriented x3 Neck: no JVD present Lungs: CTA Heart: RRR Abdomen: soft Extremities: other: (No edema) - Telemetry Telemetry Rhythm: SR, PVCs, RBBB - Labs Result Diagrams: 08/09/17 04:56 08/09/17 04:56 Troponin/CKMB CK-MB (CK-2) 5.7 ng/mL (0-6.6) 08/07/17 18:00 Troponin I 36.307 ng/mL (< 0.028) H* 08/08/17 12:44 - Assessment/Plan 1. NSTEMI with s/p cardiac cath on 08/08/17 - 50% stenosis in SVG-RCA-PDA, 90% anastanosis in SVG-Ramus or Lt Cx with retrograde filling to bifurcated portion of vessel with EF 30-35%. Not good candidate for cardiac intervention. 2. CAD with Hx of CABG x3 in 05/2012 with JORDAN-LAD, SVG-Ramus, and SVG-PLMB; and multiple Stents. Stable with BBlocker, ZENY, Plavix, ASA, and Statin. 3. HTN - stable 4. Hyperlipidemia - on Statin; will check Lipid panel today 5. Current smoker - Smoking cessation education given to the pt 6. Non-complaint of treatment - Instructed to f/u with his doctors. 7. Illicit drug abuse - cessation education given to the pt MAR reviewed * LifeVest was ordered from today. The pt was explained that he must continues wearing LifeVest, complaint of his medication and follow up with Dr Stewart' office. The pt agreed those tx plan. * The pt will f/u with Dr Stewart' office within 2-4 wks. Echo within [address] Stewart' office. Review of Systems - Review of Systems Constitutional: reports: no symptoms reported EENTM: reports: no symptoms reported Respiratory: reports: no symptoms reported Cardiac (ROS): reports: no symptoms reported ABD/GI: reports: no symptoms reported : reports: no symptoms reported Musculoskeletal: reports: no symptoms reported <Aviva Stewart - Last Filed: 08/09/17 16:05> Cardiology Progress Note - Objective Vital Signs Temp Pulse Pulse Pulse Resp BP BP 08/09/17 10:13 69 63 131/59 L 08/09/17 09:43 131/59 L 08/09/17 09:40 66 131/59 L 08/09/17 07:22 98.9 F 17 L 17 08/09/17 06:11 125/61 BP BP Pulse Ox Pulse Ox Pulse Ox 08/09/17 10:13 119/59 L 97 98 08/09/17 09:43 08/09/17 09:40 08/09/17 07:22 122/56 L 96 08/09/17 06:11 Weight 135 lb 1.6 oz 08/08/17 08/09/17 08/10/17 06:59 06:59 06:59 Intake Total 0 360 Output Total 250 200 Balance -250 160 - Labs Result Diagrams: 08/09/17 04:56 08/09/17 04:56 Troponin/CKMB CK-MB (CK-2) 5.7 ng/mL (0-6.6) 08/07/17 18:00 Troponin I 36.307 ng/mL (< 0.028) H* 08/08/17 12:44 - Assessment/Plan Pt. seen and eval. by me. I agree with the A/P by the MISSIONARY COORDINATOR. He says thta he can not afford the down payment for the Life Vest at tis time but will be able to in the next few days. His is working on disability for him.
[2017-08-09 11:06] LABS: Cardiac Risk 5.1 (Less than 4.5)
--- NOTE | 2017-08-09 11:48 | EKG ---
Test Reason : CHEST PAIN Blood Pressure : / mmHG Vent. Rate : 089 BPM Atrial Rate : 089 BPM P-R Int : 206 ms QRS Dur : 168 ms QT Int : 452 ms P-R-T Axes : 066 -89 -48 degrees QTc Int : 549 ms Sinus rhythm with occasional Premature ventricular complexes Possible Left atrial enlargement Left axis deviation Right bundle branch block Inferior infarct , age undetermined T wave abnormality, consider lateral ischemia Abnormal ECG Confirmed by GADIEL GROVES ([id number]), photo editor PAIGE SOTO ([id number]) on 08/09/2017 11:47:23 AM Referred By: Confirmed By:GADIEL GROVES
[2017-08-09 18:00] VITALS: BP 128/60; TEMP 98.5
--- NOTE | 2017-08-10 04:30 | DIS ---
DATE OF ADMISSION: 08/07/2017 DATE OF DISCHARGE: 08/09/2017 DISCHARGE DIAGNOSES: 1. Acute myocardial infarction. 2. Coronary artery disease, not amenable to intervention. 3. Leukocytosis, likely secondary to demargination. 4. Tobacco abuse. 5. Illicit drug use. 6. Hyperlipidemia. 7. Ventricular tachycardia, nonsustained. HISTORY: This patient is a 52-year-old male who presented via the emergency department. He was comp laining of some chest pain, radiation and shortness of breath while trying to load a trailer. In the emergency department, the patient did not have significant EKG changes and his initial troponin was 0.611. HOSPITAL COURSE: The patient was admitted to the hospital with non-ST segment elevation myocardial i nfarction. His subsequent troponins went up to 13.3, then 32, then ultimately 41.5, and then began t o trend downward. The patient was seen by Dr. Stewart in consultation. She is his primary claims director . It was clear that the patient had severe coronary artery disease, status post coronary artery bypa ss graft which was not previously amenable to intervention. After evaluation, she ultimately went fo rward with a heart catheterization given that the patient was having some nonsustained ventricular ta chycardia in relation to this myocardial infarction. The patient was found to have severe 3-vessel c oronary artery disease with all enterprise vessels 100% occluded. The JORDAN to the LAD was patent with no stenosis, SVG to the PDA was patent with diffuse plaque in the SVG with mid and proximal 50% stenosi s, SVG to the ramus or left circumflex was patent, but 90% occluded at the anastomosis. It was indic ated that this filled retrograde to the bifurcated portion of the vessel and was not a good candidate for intervention. It was Dr. Stewart impression that this was the culprit vessel. He also had severe decreased left ventricular systolic function with an EF of 30% to 35%. The recommendation was for me dical therapy including ZENY inhibitors, beta blockers, and statins. The patient remained pain free, subsequent to the heart catheterization. The decision was made that he would benefit from a LifeVest . Unfortunately, the patient had no resources to cover that and was unable to cover it financially o n his own. Therefore, he was felt to be prepared for discharge. He was given some information regar ding an assistance program through [employer] in order to help him attempt to get the LifeVest. The patien t understands that he should discontinue the smoking and the use of marijuana as it is contributory t o his coronary artery disease. DISPOSITION: The patient is discharged to home. He will continue with his usual medications to incl ude Tylenol No. 3 p.r.n., aspirin 81 mg q. day, atorvastatin 40 mg at bedtime, carvedilol 25 mg p.o. b.i.d., clonidine 1 mg p.o. q.8 hours, Plavix 75 mg q. day, Lasix 20 mg q. day, hydralazine 100 mg t. i.d., isosorbide 60 mg p.o. b.i.d., lisinopril 40 mg at bedtime, nifedipine 90 mg q. day, nitroglycer in p.r.n., Ranexa 500 mg p.o. b.i.d., Ultram 50 mg p.o. q.6 hours, Ambien 5 mg p.o. at bedtime. He i s to have a heart-healthy diet. His activity level is as tolerated. He is to follow up with cardiac rehab in [place], in the [facility] as well as Dr. Jasper Barton. He should return to [facility] emergency department should he have any problems prior to that time. On day of discharge, the pat ient's temperature is 98.9, pulse 69, BP 131/59. He was awake, alert, oriented, pleasant, cooperativ e. His heart regular rate and rhythm without murmurs. Lungs are diminished with fine scattered rale s, but no wheezes. Abdomen soft, nontender, nondistended. Of note, the patient's white count initia lly was 21.3. There was no evidence of infection and on the day of discharge it was down to 16.8. T his was felt to be due to demargination secondary to stress reaction. His BUN was 26 and creatinine was 1.05. Also, of note, the patient's original drug screen on presentation was positive for cannabi noids.
== END 2017-08-09 19:30 | disposition home or self-care (01) | DRG 281 ==
LOC: ERS 17:22 → 2NO 23:52
PROVIDERS: ADMIT Family Medicine; ATTEND Family Medicine
PROC: 4A023N7 Measurement of Cardiac Sampling and Pressure, Left Heart, Percutaneous Approach (ICD-10-PCS; principal; 2017-08-08)
PROC: B2181ZZ Fluoroscopy of Left Internal Mammary Bypass Graft using Low Osmolar Contrast (ICD-10-PCS; 2017-08-08)
PROC: B2131ZZ Fluoroscopy of Multiple Coronary Artery Bypass Grafts using Low Osmolar Contrast (ICD-10-PCS; 2017-08-08)
PROC: B2111ZZ Fluoroscopy of Multiple Coronary Arteries using Low Osmolar Contrast (ICD-10-PCS; 2017-08-08)
DX: I21.4 Non-ST elevation (NSTEMI) myocardial infarction (principal); I42.9 Cardiomyopathy, unspecified; I47.2 Ventricular tachycardia; I16.0 Hypertensive urgency; I10 Essential (primary) hypertension; I25.10 Atherosclerotic heart disease of native coronary artery without angina pectoris; E78.5 Hyperlipidemia, unspecified; I73.9 Peripheral vascular disease, unspecified; F17.210 Nicotine dependence, cigarettes, uncomplicated; F12.90 Cannabis use, unspecified, uncomplicated; Z91.19 Patient's noncompliance with other medical treatment and regimen; Z79.82 Long term (current) use of aspirin; Z79.899 Other long term (current) drug therapy; Z95.1 Presence of aortocoronary bypass graft
CPT/HCPCS: 36415; 71045; 71250; 80048; 80053; 80061; 80306; 81003; 81015; 82553; 83735; 83880; 84484; 85025; 93005; 93306; 93458; 93798; C1769; J1644; J1650; J2001; J2060; J2270

== ENCOUNTER 2018-04-14 10:22 | Emergency (ER) | payer SELFPAY ==
[2018-04-14] MEDS ORDERED: Lidocaine 1% w/Epinephrine 1:100K 20 ML VIAL ONE (12:02)
[2018-04-14 12:44] LABS: #Basophils 0.1 thou/uL (0.0-0.2); #Eosinphils 0.2 thou/uL (0.0-0.7); #Lymphocytes 2.3 thou/uL (1.20-3.40); #Monocytes 1.3 thou/uL (0.11-0.59); #Neutrophils 10.6 thou/uL (1.40-6.50); %Basophils 0.8 % (0.0-1.0); %Eosinophils 1.2 % (0.0-10.0); %Lymphocytes 15.7 % (21.0-51.0); %Monocytes 8.8 % (0.0-10.0); %Neutrophils 73.6 % (42.0-75.0); Hemoglobin 14.4 g/dL (14.0-18.0); Mean Corpuscular HGB CONC 32.3 g/dL (32.0-36.0); Mean Corpuscular Hemoglobin 31.7 pg (27.0-31.0); Mean Corpuscular Volume 98.1 fL (78.0-98.0); Platelet Count 319 thou/uL (130-400); RBC Distribution Width 12.9 % (11.5-14.5); Red Blood Cell (RBC) Count 4.54 mill/uL (4.70-6.10); White Blood Cell (WBC) Count 14.4 thou/uL (4.8-10.8)
[2018-04-14 13:05] LABS: ALT (SGPT) 9 U/L (8-55); AST (SGOT) 12 U/L (5-34); Albumin 3.7 g/dL (3.5-5.0); Alkaline Phosphatase 104 U/L (40-150); Anion Gap 14 mmol/L (10-20); BUN (Urea Nitrogen) 16 mg/dL (8.4-25.7); Bilirubin, Total 0.4 mg/dL (0.2-1.2); Calc. Creatinine Clearance 0 mL/min (70-130); Calcium 9.5 mg/dL (7.8-10.44); Carbon Dioxide 23 mmol/L (22-29); Chloride 104 mmol/L (98-107); Estimated GFR-MDRD 70; Globulin 3.3 g/dL (2.4-3.5); Glucose 74 mg/dL (70-105); Potassium 4.2 mmol/L (3.5-5.1); Sodium 137 mmol/L (136-145)
== END 2018-04-14 13:18 | disposition home or self-care (01) ==
LOC: ERS 10:22
DX: L05.01 Pilonidal cyst with abscess (principal); E78.5 Hyperlipidemia, unspecified; I11.0 Hypertensive heart disease with heart failure; I50.9 Heart failure, unspecified; I25.2 Old myocardial infarction; F41.9 Anxiety disorder, unspecified; F32.9 Major depressive disorder, single episode, unspecified; F17.210 Nicotine dependence, cigarettes, uncomplicated; Z79.899 Other long term (current) drug therapy; Z79.82 Long term (current) use of aspirin
CPT/HCPCS: 10081; 36415; 80053; 83605; 85025; J2001

== ENCOUNTER 2018-04-16 09:40 | Emergency (ER) | payer SELFPAY | END 2018-04-16 11:23 | disposition home or self-care (01) | LOC: ERS 09:40 | DX: Z48.817 Encounter for surgical aftercare following surgery on the skin and subcutaneous tissue (principal); I11.0 Hypertensive heart disease with heart failure; I50.9 Heart failure, unspecified; E78.00 Pure hypercholesterolemia, unspecified; I25.2 Old myocardial infarction; E78.5 Hyperlipidemia, unspecified; F17.210 Nicotine dependence, cigarettes, uncomplicated; Z79.891 Long term (current) use of opiate analgesic; Z79.899 Other long term (current) drug therapy; Z79.82 Long term (current) use of aspirin | CPT/HCPCS: 99282 ==

== ENCOUNTER 2018-07-08 04:20 | Inpatient (IN) | payer SELFPAY ==
[2018-07-08] MEDS ORDERED: Nitroglycerin 2% Ointment 1 INCH/1 GM Packet ONE (04:41)
[2018-07-08 05:05] LABS: #Basophils 0.1 thou/uL (0.0-0.2); #Eosinphils 0.3 thou/uL (0.0-0.7); #Lymphocytes 2.7 thou/uL (1.20-3.40); #Monocytes 1.1 thou/uL (0.11-0.59); #Neutrophils 8.2 thou/uL (1.40-6.50); %Basophils 0.7 % (0.0-1.0); %Eosinophils 2.8 % (0.0-10.0); %Lymphocytes 21.7 % (21.0-51.0); %Monocytes 8.9 % (0.0-10.0); Hemoglobin 13.1 g/dL (14.0-18.0); Mean Corpuscular HGB CONC 33.4 g/dL (32.0-36.0); Mean Corpuscular Hemoglobin 32.5 pg (27.0-31.0); Mean Corpuscular Volume 97.2 fL (78.0-98.0); Mean Platelet Volume 9.2 fL (7.4-10.4); Platelet Count 225 thou/uL (130-400); RBC Distribution Width 13.8 % (11.5-14.5); Red Blood Cell (RBC) Count 4.05 mill/uL (4.70-6.10); White Blood Cell (WBC) Count 12.4 thou/uL (4.8-10.8)
[2018-07-08 05:28] LABS: ALT (SGPT) 9 U/L (8-55); AST (SGOT) 13 U/L (5-34); Albumin 3.6 g/dL (3.5-5.0); Alkaline Phosphatase 103 U/L (40-150); Anion Gap 13 mmol/L (10-20); BUN (Urea Nitrogen) 25 mg/dL (8.4-25.7); Bilirubin, Total 0.4 mg/dL (0.2-1.2); Calc. Creatinine Clearance 0 mL/min (70-130); Calcium 8.9 mg/dL (7.8-10.44); Carbon Dioxide 20 mmol/L (22-29); Chloride 109 mmol/L (98-107); Estimated GFR-MDRD 73; Globulin 2.7 g/dL (2.4-3.5); Glucose 98 mg/dL (70-105); Lipase 28 U/L (8-78); Potassium 3.8 mmol/L (3.5-5.1); Protein, Total 6.3 g/dL (6.0-8.3); Sodium 138 mmol/L (136-145)
[2018-07-08 06:04] LABS: CKMB 2.9 ng/mL (0-6.6)
[2018-07-08] MEDS ORDERED: Enoxaparin Sodium 60 MG/0.6 ML SYRINGE ONE (06:24)
[2018-07-08] MEDS ORDERED: Acetaminophen 325 MG TAB PO PRN (08:12)
[2018-07-08] MEDS ORDERED: Nitroglycerin 0.4 MG TAB (25 Tab Bottle) PO PRN (08:12)
[2018-07-08] MEDS ORDERED: Morphine 4 MG/ML VIAL SLOW IVP PRN (08:12)
[2018-07-08 08:14] LABS: Troponin I 0.399 ng/mL (< 0.028)
[2018-07-08] MEDS ORDERED: Enoxaparin Sodium 80 MG/0.8 ML SYRINGE SC SCH (08:15)
[2018-07-08] MEDS ORDERED: Sodium Chloride 0.9% 1,000 ML IV SCH (08:15)
--- NOTE | 2018-07-08 08:40 | RAD ---
CHEST 1 VIEW: INDICATION: Chest pain. COMPARISON: Prior exam dated 08/07/2017. FINDINGS: Cardiomegaly and scarring with bullous changes, stable. No pleural effusion or pneumothorax is evide nt. No consolidation is noted. IMPRESSION: No acute cardiopulmonary abnormality. POS: BH
[2018-07-08] MEDS ORDERED: Famotidine 20 MG TAB PO SCH (09:00)
[2018-07-08] MEDS ORDERED: Clopidogrel Bisulfate 75 MG TAB PO SCH (09:00)
[2018-07-08] MEDS ORDERED: Aspirin 325 mg Enteric Coated Tablet PO SCH (09:00)
[2018-07-08] MEDS ORDERED: Famotidine 20 MG TAB ONE (09:13)
[2018-07-08] MEDS ORDERED: Clopidogrel Bisulfate 75 MG TAB ONE (09:13)
[2018-07-08] MEDS ORDERED: Aspirin 325 MG TAB ONE (09:13)
[2018-07-08] MEDS ORDERED: Morphine 2 MG/ML SYRINGE SLOW IVP PRN (10:06)
[2018-07-08 11:41] LABS: Troponin I 0.738 ng/mL (< 0.028)
[2018-07-08] MEDS ORDERED: Lorazepam 0.5 MG TAB PO SCH (12:30)
--- NOTE | 2018-07-08 12:48 | HP ---
PRIMARY CARE PHYSICIAN: Jasper Barton DO. ANESTHESIOLOGIST PHYSICIAN: Tanisha Stewart MD CHIEF COMPLAINT: "I woke with chest pain." HISTORY OF PRESENT ILLNESS: Mr. Justin is a pleasant 52-year-old gentleman who has a history of coronary artery disease, hypertension, and hyperlipidemia. He was in his usual state of health until approximately 2 days ago. He says that he was picking up stuff in the yard when he started to feel a pressure in his chest and would also get a little bit short of breath. He also would note some pain into his left arm and shoulder as well. This happened again on yesterday and then, around 2 a.m., he awoke from sleep with this severe pressure in his chest, then it felt sharp followed by burning sensation. It was in the left side of his chest and again went into his shoulder. He said it was about 8/10 and very similar to the pain, he had when he had his coronary artery bypass surgery. He also noted some shortness of breath, but no nausea, no vomiting, no swelling in the legs. The pain was relieved with nitroglycerin given in the ER, and he was evaluated and found to have a elevated troponin and is being admitted for further recommendations and treatment. REVIEW OF SYSTEMS: All systems were reviewed and are negative, except for that mentioned in the history of present illness. He also denies any abdominal pain or any dark stools or black stools. No blood in the stools. PAST MEDICAL HISTORY: Significant for coronary artery disease, hypertension, hyperlipidemia, and he has an occluded distal aorta. PAST SURGICAL HISTORY: He has had bypass grafting 3-vessel CABG as well as a cholecystectomy. ALLERGIES: NO KNOWN DRUG ALLERGIES. FAMILY HISTORY: Significant for coronary artery disease. SOCIAL HISTORY: He is . He has 1 child. He continues to smoke about half a pack a day, and he has been the smoker for about 40 years. Denies any alcohol use. He would like to be a full code. CURRENT MEDICATIONS: Include, 1. Hydralazine 100 mg three times a day. 2. Aspirin 325 mg daily. 3. Lisinopril 40 mg daily. 4. Carvedilol 25 mg twice daily. 5. Atorvastatin 40 mg daily. 6. Protonix 40 mg daily. 7. Ranitidine 150 mg twice a day. 8. Clonidine 0.1 mg every 8 hours. 9. Isosorbide mononitrate 30 mg daily. PHYSICAL EXAMINATION: GENERAL: He is alert and oriented. He appears to be in no acute distress. He is well-developed and well-nourished, slightly disheveled in appearance. VITAL SIGNS: Blood pressure was 99/49, heart rate was 50, respiratory rate of 17, and he is afebrile. HEENT: Pupils are equal, round, and reactive to light. Extraocular muscles are intact. Sclerae are anicteric. Throat, no erythema, no exudates. NECK: No adenopathy. He did have either a conducted murmur or bruit. LUNGS: Clear to auscultation. No wheezing. No rales. CARDIOVASCULAR: He has a normal S1, S2. No S3 or S4. He did have a grade 2/6 systolic murmur radiating to the carotids and into the axilla. ABDOMEN: Soft. It is nontender and nondistended. Positive for bowel sounds. No rebound, no guarding. EXTREMITIES: There is no edema. There is no calf tenderness. No joint effusions. NEUROLOGIC: Cranial nerves 2 through 12 are grossly intact. His muscle strength is 5/5 in both upper and lower extremities. SKIN AND INTEGUMENT: There are no skin changes, no rash. LABORATORY DATA: The troponin was 0.336. Sodium is 138, potassium is 3.8, chloride is 109, CO2 is 20, BUN of 25, creatinine is 1.07, glucose is 98. White blood cell count of 12.4, hemoglobin of 13.1, hematocrit is 39.4, and platelet count was 225. IMAGING STUDIES: On his EKG, by my reading, he has sinus rhythm, the rate was in the 50s and he has a right bundle-branch block and left atrial enlargement. He also had a chest x-ray. He has borderline cardiomegaly. The sternotomy wires are in place, and he has some chronic lung changes, but no evidence of any effusion or infiltrate. ASSESSMENT: This is a very pleasant 52-year-old gentleman, who presents with chest pain. It has started in the last couple of days and has become more progressive and now it is occurring at rest. He even has an elevated troponin. Therefore, he likely has a unstable angina or even an NSTEMI. He will be admitted to telemetry. We will start him on aspirin and Lovenox subcu. His heart rate is already low. So therefore, we will continue his beta-blockers at his usual dose, nitrates as tolerated, and consult Cardiology for further recommendations. He has already been counseled on smoking cessation for his tobacco abuse. Job ID: [id number]
[2018-07-08] MEDS ORDERED: Lorazepam 1 MG TAB ONE (13:01)
[2018-07-08] MEDS ORDERED: Nitroglycerin 2% Ointment 1 INCH/1 GM Packet TOP SCH (14:00)
--- NOTE | 2018-07-08 15:28 | CON ---
DATE OF CONSULTATION: PRIMARY CARE PHYSICIAN: Jasper Barton DO INDICATION FOR CONSULTATION: A 52-year-old gentleman with severe 3-vessel coronary artery disease with totally occluded [place] vessels, status post bypass surgery with disease also involving the bypasses with severe peripheral vascular disease. He is a vasculopath. He has a totally occluded distal aorta. His last admission here was in July of last year, where he underwent cardiac catheterization with some difficulty. We were able to approach the vessels from the left radial approach. At that time, he had severe disease, which included the following, he had a JORDAN to the left anterior descending artery, which was still patent. He did have a saphenous vein graft to diagonal branch, which had a 90% occlusion distal to the anastomosis. The saphenous vein graft to the right coronary artery was proximal 75% stenosis with distal disease throughout the graft and the distal right coronary was a very small diffusely diseased vessel. He also had some type of a saphenous vein graft, which appeared to be either to an intermediate or diagonal, which also had some diffuse disease. His ejection fraction at that time was 25% to 30%. All of his [place] coronary arteries were 100% occluded. He also has a history of renal artery stenosis. He has been following up with Geri [facility]p [facility]. His primary care physician is Dr. Jasper Barton, who he seen about 3 months ago. He has not seen me in the office since his last cardiac catheterization. At this time, he woke around 2 a.m. complaining of chest pain, which was pressure type in nature, then became sharp, radiating to the left area and described it as being a burning sensation to the left shoulder. He did not have any nitroglycerin at home. He was given some nitroglycerin paste here in the emergency room that has seemed to improve his symptoms. He also was given Lovenox. At home, he thought his blood pressure was elevated, so he took his clonidine and hydralazine, this did not completely resolve the pain. At this time, he is pain free and is very comfortable. His bypass surgery was about 7 or 8 years ago. The only significant complaint that he had was he has occasional dizziness and this will only last for a few minutes, occurs sometime after he takes his medications and then it resolves. At this time, his cardiac enzymes again are slightly lower, indeterminate with a troponin I of 0.366, increased up to 0.399. EKG is unremarkable or it has no acute changes. He does have a right bundle-branch block, evidence of probable old inferior myocardial infarction. PAST MEDICAL HISTORY: Significant for the severe coronary artery disease and peripheral vascular disease. He has a totally occluded distal aorta. He has right renal artery stenosis. I believe his renal artery stenosis may be on the right side, I am not quite sure. He has had cholecystectomy. He has anxiety and depression. He has had bypass surgery. He has hypercholesterolemia and hypertension. SOCIAL HISTORY: He is . He has 1 child, age 29 with no heart problems. He continues to smoke half a pack a day. He has a occasional marijuana use. He has no alcohol use. He is unable to work. He has also been unable to get disability. 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 He has severe problems due to his claudication in the lower extremities. ALLERGIES: NONE. MEDICATIONS: 1. Clonidine. 2. Hydralazine. 3. Isosorbide. 4. Coreg. 5. Aspirin. 6. Lasix. 7. Simvastatin. 8. Temazepam. 9. Sertraline. 10. He also thinks that he may be taking Plavix, but he is uncertain. REVIEW OF SYSTEMS: He continues to smoke. He has occasional dizziness. He has claudication due to the distal occlusion of the aorta. Otherwise, he has no significant complaints that was listed in the history of present illness. He has no GI or complaints. PHYSICAL EXAMINATION: GENERAL: Reveals an elderly, ill-appearing gentleman. VITAL SIGNS: Blood pressure 124/50 and heart rate is 64 and regular. HEENT: Shows head to be normocephalic and atraumatic. He has significant radiation from the aortic area up into the carotids. I cannot determine that these are occluded, but appears to be that this is radiation from the aortic area, but did not appear to be bruits, but there is a loud noise over both carotids. No obvious JVD was noted. CHEST: His chest has decreased breath sounds in the bases. He also has a right lower to mid wheeze expiratory, which improved somewhat after coughing, but was still present. CARDIOVASCULAR: Reveals a regular rate and rhythm. There was murmur over the aortic area, it was very loud, radiates over the entire precordium. ABDOMEN: Soft and flat. Positive bowel sounds are present. Could not palpate distal aorta. Could not palpate femorals or any lower extremity pedal pulses or popliteal pulses. SKIN: Warm and dry. Some chronic discoloration from being in the sun, but there was no diaphoresis noted. NEUROLOGIC: He appears to be intact. LABORATORY DATA: EKG shows a normal sinus rhythm with a borderline first-degree AV heart block with a right bundle-branch block, but no acute ST-segment changes were noted, appears to be unchanged from an EKG approximately a year ago. IMPRESSION AND PLAN: 1. A 52-year-old gentleman with unstable angina-type symptoms with severe inoperable 3-vessel coronary artery disease with progression disease most likely. 2. History of peripheral vascular disease. He has a totally occluded distal aorta. He has claudication symptoms associated with that. It is unlikely that he will be a candidate to undergo any type of further procedures. We can discuss this case with a CV surgeon, because unlikely he is a candidate for surgery due to his severe coronary artery disease. 3. History of cardiomyopathy. Ejection fraction on last hospitalization was about 30% to 35%. He continues to see Geri Harp, nurse practitioner at [facility]. 4. Continued tobacco abuse. He has been advised on multiple times to stop smoking. 5. History of depression and anxiety. He states some times he does not care whether he survives or not. He has been given medications sertraline and temazepam. I believe this is followed by his primary care physician, Dr. Jasper Barton. 6. History of illicit drug use. He continues to use marijuana on a p.r.n. basis. 7. History of severe cardiomyopathy on his last admission. He was advised to consider a LifeVest. Unfortunately, he was unable to do that as he did not have finances to afford this. 8. Noncompliance due to lack of funding. This gentleman has applied apparently for disability, it was told he needed to be he could be retrained for another job. In my opinion; however, that he will not be able to do any other work. The patient's ejection fraction severely compromised. He has lower extremity claudication. We will need to try again to see if we can get this gentleman some assistance so that he can at least afford his medications and have at least some quality of life, but as far as his coronary artery disease, I have nothing further to offer except for medical management only. Job ID: [id number]
[2018-07-08] MEDS ORDERED: Carvedilol 25 MG TAB PO SCH (17:00)
== END 2018-07-08 15:05 | disposition left against medical advice (07) | DRG 303 ==
LOC: ERS 04:20 → ERHOLD 06:27
PROVIDERS: ADMIT Hospitalist; ATTEND Hospitalist
DX: I25.110 Atherosclerotic heart disease of native coronary artery with unstable angina pectoris (principal); I10 Essential (primary) hypertension; F17.210 Nicotine dependence, cigarettes, uncomplicated; I45.10 Unspecified right bundle-branch block; I49.3 Ventricular premature depolarization; I70.1 Atherosclerosis of renal artery; I70.219 Atherosclerosis of native arteries of extremities with intermittent claudication, unspecified extremity; F32.9 Major depressive disorder, single episode, unspecified; F41.9 Anxiety disorder, unspecified; E78.00 Pure hypercholesterolemia, unspecified; Z95.1 Presence of aortocoronary bypass graft; Z90.49 Acquired absence of other specified parts of digestive tract; Z79.82 Long term (current) use of aspirin; Z79.899 Other long term (current) drug therapy
CPT/HCPCS: 36415; 71045; 80053; 82553; 83690; 84484; 85025; 93005; J1650

== ENCOUNTER 2018-08-19 17:15 | Emergency (ER) | payer SELFPAY ==
--- NOTE | 2018-08-19 17:45 | RAD ---
EXAM: Single view of the chest HISTORY: Chest pain COMPARISON: 07/08/2018 FINDINGS: Single view of the chest shows a normal sized cardiomediastinal silhouette. The patient is status post sternotomy. No lung markings are seen in the left costophrenic angle which are stable and may represent a loculated chronic pneumothorax. There is no evidence of consolidation, mass, or p leural effusion. Degenerative changes are seen in the spine. IMPRESSION: Stable examination
[2018-08-19 18:00] LABS: #Basophils 0.1 thou/uL (0.0-0.2); #Eosinphils 0.1 thou/uL (0.0-0.7); #Lymphocytes 1.8 thou/uL (1.20-3.40); #Monocytes 0.9 thou/uL (0.11-0.59); #Neutrophils 12.6 thou/uL (1.40-6.50); %Basophils 0.7 % (0.0-1.0); %Eosinophils 0.6 % (0.0-10.0); %Lymphocytes 11.5 % (21.0-51.0); %Monocytes 5.7 % (0.0-10.0); %Neutrophils 81.5 % (42.0-75.0); Hemoglobin 13.4 g/dL (14.0-18.0); Mean Corpuscular HGB CONC 33.8 g/dL (32.0-36.0); Mean Corpuscular Volume 97.6 fL (78.0-98.0); Mean Platelet Volume 9.6 fL (7.4-10.4); Platelet Count 180 thou/uL (130-400); RBC Distribution Width 13.2 % (11.5-14.5); Red Blood Cell (RBC) Count 4.06 mill/uL (4.70-6.10); White Blood Cell (WBC) Count 15.4 thou/uL (4.8-10.8)
[2018-08-19 18:28] LABS: ALT (SGPT) 11 U/L (8-55); AST (SGOT) 16 U/L (5-34); Albumin 3.6 g/dL (3.5-5.0); Alkaline Phosphatase 104 U/L (40-150); Anion Gap 11 mmol/L (10-20); BUN (Urea Nitrogen) 20 mg/dL (8.4-25.7); Bilirubin, Total 0.3 mg/dL (0.2-1.2); CK (CPK) 108 U/L (30-200); Calc. Creatinine Clearance 0 mL/min (70-130); Calcium 9.1 mg/dL (7.8-10.44); Carbon Dioxide 24 mmol/L (22-29); Chloride 107 mmol/L (98-107); Estimated GFR-MDRD 66; Globulin 2.7 g/dL (2.4-3.5); Glucose 117 mg/dL (70-105); Lipase 37 U/L (8-78); Protein, Total 6.3 g/dL (6.0-8.3); Sodium 138 mmol/L (136-145)
[2018-08-19 18:46] LABS: CKMB 6.2 ng/mL (0-6.6)
[2018-08-19] MEDS ORDERED: Enoxaparin Sodium 60 MG/0.6 ML SYRINGE ONE (19:04)
[2018-08-19] MEDS ORDERED: Nitroglycerin 2% Ointment 1 INCH/1 GM Packet ONE (19:05)
--- NOTE | 2018-08-19 20:43 | PDOC.EVN ---
Event Note - Event Note Event Note: Notified that patient left ama
--- NOTE | 2018-08-23 14:54 | EKG ---
Test Reason : Blood Pressure : / mmHG Vent. Rate : 062 BPM Atrial Rate : 062 BPM P-R Int : 204 ms QRS Dur : 172 ms QT Int : 504 ms P-R-T Axes : 068 -74 -21 degrees QTc Int : 511 ms Normal sinus rhythm Possible Left atrial enlargement Left axis deviation Right bundle branch block Inferior infarct , age undetermined Abnormal ECG Confirmed by CONNER ASHBY, KIM ([id number]), continuity editor NUNU MORFIN ([id number]) on 08/23/2018 2:53:56 PM Referred By: Confirmed By:KIM PRIETO MD
== END 2018-08-19 20:08 | disposition left against medical advice (07) ==
LOC: ERS 17:15
DX: I20.0 Unstable angina (principal); I11.0 Hypertensive heart disease with heart failure; I50.9 Heart failure, unspecified; I25.2 Old myocardial infarction; E78.00 Pure hypercholesterolemia, unspecified; F17.210 Nicotine dependence, cigarettes, uncomplicated; Z79.899 Other long term (current) drug therapy; Z79.82 Long term (current) use of aspirin
CPT/HCPCS: 36415; 71045; 80053; 82550; 82553; 83690; 83880; 84484; 85025; 93005; 96360; 96372; J1650

== ENCOUNTER 2018-10-12 23:49 | Inpatient (IN) | payer SELFPAY ==
[2018-10-12] MEDS ORDERED: Ondansetron PF 4 MG/2 ML Vial ONE (23:55)
[2018-10-13] MEDS ORDERED: Heparin 1,000 UNITS/ML VIAL ONE ×2 (00:04→00:13)
[2018-10-13] MEDS ORDERED: Heparin 25,000 units/D5W 500 ML ONE (00:04)
[2018-10-13 00:43] LABS: Hemoglobin 14.8 g/dL (14.0-18.0); Mean Corpuscular HGB CONC 33.2 g/dL (32.0-36.0); Mean Corpuscular Hemoglobin 32.8 pg (27.0-31.0); Mean Corpuscular Volume 98.8 fL (78.0-98.0); Mean Platelet Volume 9.2 fL (7.4-10.4); Platelet Count 225 thou/uL (130-400); RBC Distribution Width 13.2 % (11.5-14.5); Red Blood Cell (RBC) Count 4.52 mill/uL (4.70-6.10); White Blood Cell (WBC) Count 24.2 thou/uL (4.8-10.8)
[2018-10-13 00:56] LABS: ALT (SGPT) 45 U/L (8-55); AST (SGOT) 64 U/L (5-34); Albumin 3.9 g/dL (3.5-5.0); Alkaline Phosphatase 139 U/L (40-150); Anion Gap 15 mmol/L (10-20); BUN (Urea Nitrogen) 26 mg/dL (8.4-25.7); Bilirubin, Total 0.4 mg/dL (0.2-1.2); Calc. Creatinine Clearance 0 mL/min (70-130); Calcium 8.9 mg/dL (7.8-10.44); Carbon Dioxide 23 mmol/L (22-29); Chloride 103 mmol/L (98-107); Estimated GFR-MDRD 49; Glucose 215 mg/dL (70-105); Lipase 132 U/L (8-78); Potassium 3.9 mmol/L (3.5-5.1); Protein, Total 6.9 g/dL (6.0-8.3); Sodium 137 mmol/L (136-145)
[2018-10-13 01:01] LABS: Eosinophils 1 % (0-10); Lymphocytes 11 % (21-51); MDiff Complete? YES; Monocytes 4 % (0-10); Neutrophil 84 % (42-75)
[2018-10-13] MEDS ORDERED: Metoclopramide HCl 10 MG/2 ML VIAL ONE (01:10)
[2018-10-13 01:17] LABS: CKMB 4.1 ng/mL (0-6.6)
[2018-10-13] MEDS ORDERED: Ondansetron PF 4 MG/2 ML Vial IVP PRN (01:35)
[2018-10-13] MEDS ORDERED: Acetaminophen 650 MG Suppository PR PRN (01:35)
[2018-10-13] MEDS ORDERED: Ondansetron ODT 4 MG TAB PO PRN (01:35)
[2018-10-13] MEDS ORDERED: Acetaminophen 325 MG TAB PO PRN (01:35)
[2018-10-13 02:14] LABS: PTT Greater than 250.0 SEC (22.9-36.1)
[2018-10-13 02:35] VITALS: BMI 19.9
[2018-10-13 03:19] LABS: #Basophils 0.1 thou/uL (0.0-0.2); #Lymphocytes 1.6 thou/uL (1.20-3.40); #Monocytes 1.3 thou/uL (0.11-0.59); #Neutrophils 18.4 thou/uL (1.40-6.50); %Basophils 0.4 % (0.0-1.0); %Eosinophils 0.1 % (0.0-10.0); %Lymphocytes 7.4 % (21.0-51.0); Hemoglobin 13.9 g/dL (14.0-18.0); Mean Corpuscular HGB CONC 33.4 g/dL (32.0-36.0); Mean Corpuscular Volume 98.8 fL (78.0-98.0); Platelet Count 214 thou/uL (130-400); RBC Distribution Width 13.1 % (11.5-14.5); Red Blood Cell (RBC) Count 4.23 mill/uL (4.70-6.10); White Blood Cell (WBC) Count 21.4 thou/uL (4.8-10.8)
[2018-10-13 03:37] LABS: Hemoglobin A1c 5.2 % (4.0-6.0)
[2018-10-13 03:55] LABS: Anion Gap 11 mmol/L (10-20); BUN (Urea Nitrogen) 25 mg/dL (8.4-25.7); Calc. Creatinine Clearance 57 mL/min (70-130); Calcium 8.9 mg/dL (7.8-10.44); Carbon Dioxide 24 mmol/L (22-29); Chloride 105 mmol/L (98-107); Estimated GFR-MDRD 58; Glucose 150 mg/dL (70-105); Potassium 3.9 mmol/L (3.5-5.1); Sodium 136 mmol/L (136-145)
[2018-10-13 03:57] LABS: Troponin I 3.471 ng/mL (< 0.028)
[2018-10-13] MEDS ORDERED: Heparin 25,000 units/D5W 500 ML IVPB SCH (04:15)
[2018-10-13 04:56] LABS: Hemoglobin 13.4 g/dL (14.0-18.0); Platelet Count 183 thou/uL (130-400)
[2018-10-13] MEDS: Nitroglycerin 50 MG/250 ML BOT 250 ML IVPB SCH ×2 (06:27→17:58)
--- NOTE | 2018-10-13 07:37 | HP ---
PRIMARY CARE DOCTOR: Marco Antonio, Dr. Jasper Barton. CODE STATUS: Full code. TIME OF EVALUATION: 01:30 a.m. CHIEF COMPLAINT: Chest pain. HISTORY OF PRESENT ILLNESS: This is a 53-year-old male patient with past medical history of severe coronary artery disease with triple-vessel atherosclerosis. The patient came to the hospital after having severe chest pain. The pain started around 08:00 p.m. with no clear triggers, no alleviating factors. The patient has no medications. It seems he has some financial issues. On presentation, the patient was found to have a blood pressure in the 200s with ongoing chest pain, nausea, vomiting, dizziness, also there is elevation in creatinine. Symptoms are severe. The patient is being placed in ICU on nitroglycerin drip for hypertensive emergency. The symptoms have resolved after systolic blood pressure is below 180. Continued to monitor overnight, Dr. Vale has been consulted, we will follow recommendations. REVIEW OF SYSTEMS: CONSTITUTIONAL: No fever, chills, or generalized weakness. RESPIRATORY: No cough, sputum production, or shortness of breath. CARDIOVASCULAR: The patient has chest pain and palpitation. GASTROINTESTINAL: The patient has nausea, vomiting. No diarrhea or abdominal pain. TEST RIDER: The patient had dizziness, headache, feeling lightheaded. GENITOURINARY: No burning on urination. EXTREMITIES: No leg swelling. All other systems were reviewed and negative except for the findings mentioned above. PAST MEDICAL HISTORY: The patient has a history of congestive heart failure. The patient has a history of coronary artery disease, hyperlipidemia, hypertension, IA x7, renal stenosis. PAST SURGICAL HISTORY: Coronary artery bypass graft surgery, cholecystectomy, CABG x3, cardiac stent x4. PSYCHIATRIC HISTORY: Includes anxiety and depression, history of suicide attempt, ideation, at the age of 25. SOCIAL HISTORY: The patient currently uses drugs, marijuana. No alcohol. The patient smokes half a pack per day. FAMILY HISTORY: Includes malignancy in the father, heart disease. KNOWN ALLERGIES: No known drug allergies. REPORTED MEDICATIONS: 1. Hydralazine. 2. Aspirin. 3. Lisinopril. 4. Clonidine. 5. Isosorbide mononitrate. 6. Nitroglycerin. PHYSICAL EXAMINATION: VITAL SIGNS: Blood pressure 197/117, heart rate 94, respiratory rate was 15, pain 5/10, oxygen saturation was 90, the blood pressure has been up and down to 200s and down to the 180s, symptoms disappeared when the blood pressure below 180. GENERAL APPEARANCE: The patient is alert, in distress due to nausea, vomiting, and chest pain. HEENT: Eyes; normal conjunctivae. Moist oral mucosa. Anicteric. No JVD. RESPIRATORY: Bilateral air entry. No rales. No wheezes. Symmetric expansion. CARDIOVASCULAR: Normal rate, regular rhythm. No murmurs. No gallop. No edema. ABDOMEN: Soft. Normal bowel sounds. MUSCULOSKELETAL: Baseline range of motion and strength. SKIN: Warm, intact. No pallor. No rash. No redness. Capillary refill seems to be intact. NEUROLOGIC: No evidence of any new focal weakness. Cranial nerves seem to be intact. PSYCH: The patient is in good mood. No anxiety. Optimal judgment. DIAGNOSTIC FINDINGS: EKG was reviewed. The patient has RBBB with sinus rhythm with first-degree AV block, ventricular rate 83, LA 230, QRS 192, QT corrected 447. Chest x-ray was reviewed and the patient has no major abnormalities. The chest x-ray showed increased markings, might be related to chronic changes. LABORATORY DATA: Reviewed. The patient has white count 24.2 with a hemoglobin 14.8, MCV 98.8, platelet count 225. Sodium 137, potassium 3.9, chloride 103, carbon dioxide 23, anion gap 15, BUN 36, creatinine 1.5, in previous admission, the creatinine was 1.1, glucose 215, calcium 8.9, total bilirubin 0.4, AST 64, ALT 45, alkaline phosphatase 139. Troponin 0.175. Beta-natriuretic peptide 350. Serum total protein 6.9, albumin 3.9, globulin 3.0, albumin-globulin ratio is 1.3, lipase 132. ASSESSMENT AND PLAN: The patient will be placed in the hospital with following medical problems. Critical care time is more than 35 minutes spent at bedside with the patient care and counseling, medication reconciliation, and stabilization of the patient. 1. Hypertensive emergency. The patient presented with systolic blood pressure about 200 and diastolic about 110. The patient's symptoms were severe ongoing chest pain while blood pressure was 180, associated with severe nausea and vomiting, all improving with decrease of the blood pressure, the patient also presenting with acute kidney injury and also [id number] myocardial infarction likely type II secondary to some hypertensive emergency. The symptoms have improved. Actually systolic blood pressure below 180, and the patient is on a high dose of nitroglycerin drip; if not totally controlled, we will switch to Cardene drip. We will place in ICU. We will follow with Dr. Vale for recommendations. 2. Leukocytosis, unclear etiology, likely secondary to acute physical distress. We will monitor white count. We will treat accordingly. There is an IV, no evidence of sepsis at this point. 3. Acute kidney injury. The patient has an increase of more than 0.3 mg/dL from the baseline creatinine, this likely is secondary to hypertensive emergency. We will treat the underlying conditions. We will monitor kidney function and treat accordingly. 4. Hyperglycemia. There is no reported history of diabetes. We will send hemoglobin A1c to rule out/in diabetes. We will monitor blood sugar and add the sliding scale if still uncontrolled in the morning. 5. [id number] myocardial infarction. This could be [id number] myocardial infarction type II secondary to hypertensive emergency. The patient has severe coronary artery disease. We will trend troponins and we will follow with Dr. Vale's recommendations. 6. Underlying congestive heart failure, presented with elevated beta-natriuretic peptide, seems to be related also to hypertensive emergency. The patient does not have any other symptoms of decompensation at this point. We will monitor and treat accordingly. We will reconcile home medications. 7. Deep venous thrombosis prophylaxis. 8. Hyperlipidemia. Low-cholesterol diet is advised. We will reconcile home medications. Job ID: [id number]
[2018-10-13] MEDS ORDERED: Enoxaparin Sodium 40 MG/0.4 ML SYRINGE SC SCH (09:00)
[2018-10-13] MEDS: Aspirin 325 MG TAB PO SCH (09:42)
--- NOTE | 2018-10-13 10:04 | RAD ---
1 VIEW CHEST: Date: 10/13/18 HISTORY: Pain. COMPARISON: 10/12/18. FINDINGS: There are sternotomy wires. Normal cardiac silhouette. Pulmonary vessels and hilum are normal. Chroni c changes of lung parenchyma. Loculated pneumothorax in the left lung base. No osseous abnormalities. IMPRESSION: No significant interval change. POS: OFF
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
--- NOTE | 2018-10-13 10:46 | CON ---
DATE OF CONSULTATION: 10/13/2018 CONSULTING PHYSICIAN: Thuanist . REASON FOR CONSULTATION: ICU management. Following encompasses 45 minutes of time with greater than 50% spent with the patient and/or the patient's unit in the hospital. HISTORY OF PRESENT ILLNESS: This is a 53-year-old male, who had abrupt onset of substernal chest pain yesterday, which lasted at least 3 hours. He was initially taken to [place] before being transferred over here. He was found to have profoundly elevated systolic blood pressure with values over 200. He was placed on a drip to lower the blood pressure. His angina finally resolved after starting nitroglycerin drip. PAST MEDICAL HISTORY: 1. He said he has had at least seven myocardial infarctions. 2. Hyperlipidemia. 3. Hypertension. 4. Renal artery stenosis. PAST SURGICAL HISTORY: 1. Coronary artery bypass grafting surgery. 2. Cholecystectomy. 3. Coronary stent placement. PSYCHIATRIC HISTORY: Remarkable for anxiety, depression, and one suicide attempt. SOCIAL HISTORY: Uses occasional marijuana. Smokes half pack per day. Does not consume alcohol. FAMILY MEDICAL HISTORY: Remarkable for cancer and heart disease. ALLERGIES: NONE. MEDICATIONS: Prior to admission; 1. Hydralazine. 2. Aspirin. 3. Lisinopril. 4. Clonidine. 5. Isosorbide. 6. Nitroglycerin. REVIEW OF SYSTEMS: Twelve-point review of systems is otherwise negative. PHYSICAL EXAMINATION: VITAL SIGNS: Temperature 97.9, pulse 55, blood pressure 120/66, and O2 saturation 100%. He is currently on nitroglycerin drip and heparin drip. HEENT: Unremarkable. NECK: No adenopathy, JVD, or bruits. CARDIAC: S1 and S2. Regular with 2/6 systolic murmur. LUNGS: Clear to auscultation. ABDOMEN: Soft, nontender, and nondistended. EXTREMITIES: No clubbing, cyanosis, or edema. LABORATORY DATA: Troponin is 14.5. Sodium 136, potassium 3.9, chloride 105, CO2 of 24, BUN 25, creatinine 1.3, and glucose 150. PTT is 54. White blood cell count 21.4, hematocrit 41, and platelet count 183. Chest x-ray demonstrates fairly normal heart size. No obvious infiltrates. He has emphysematous change, particularly at the left base. ASSESSMENT: 1. Non-Q-wave myocardial infarction. 2. Multivessel coronary artery disease. 3. Malignant hypertension. 4. Tobacco abuse. 5. Possible underlying chronic obstructive pulmonary disease. PLAN: The patient is being treated with heparin and nitroglycerin. His myocardial infarction is being managed medically by [facility]. I will go ahead and start him on some Pepcid for GI prophylaxis. The heparin drip will cover anything related to DVT prophylaxis. Prognosis guarded. Job ID: [id number]
--- NOTE | 2018-10-13 16:25 | PDOC.EVN ---
Event Note - Event Note Event Note: Seen and examined. BP is trending up despite nitro infusiomn start nifedipine and coreg.
[2018-10-13] MEDS ORDERED: NIFEdipine XL 60 MG TAB PO SCH (16:30)
[2018-10-13] MEDS ORDERED: hydrALAZINE 20 MG/ML VIAL SLOW IVP PRN (18:04)
[2018-10-13] MEDS: Heparin 10,000 UNITS/ 10 ML VIAL SLOW IVP SCH (20:31)
[2018-10-13] MEDS: Famotidine 20 MG TAB PO SCH (20:40)
[2018-10-13] MEDS: Carvedilol 25 MG TAB PO SCH (20:40)
[2018-10-13] MEDS: Atorvastatin Calcium 40 MG TAB PO SCH (20:40)
[2018-10-14] MEDS: Nitroglycerin 50 MG/250 ML BOT 250 ML IVPB SCH ×3 (02:03→20:09)
[2018-10-14 02:04] LABS: #Basophils 0.1 thou/uL (0.0-0.2); #Lymphocytes 1.9 thou/uL (1.20-3.40); #Monocytes 0.9 thou/uL (0.11-0.59); #Neutrophils 12.5 thou/uL (1.40-6.50); %Basophils 0.8 % (0.0-1.0); %Eosinophils 0.2 % (0.0-10.0); %Lymphocytes 11.9 % (21.0-51.0); Hemoglobin 13.6 g/dL (14.0-18.0); Mean Corpuscular HGB CONC 33.8 g/dL (32.0-36.0); Mean Corpuscular Hemoglobin 32.5 pg (27.0-31.0); Mean Corpuscular Volume 96.1 fL (78.0-98.0); Mean Platelet Volume 9.4 fL (7.4-10.4); Platelet Count 191 thou/uL (130-400); RBC Distribution Width 12.9 % (11.5-14.5); Red Blood Cell (RBC) Count 4.19 mill/uL (4.70-6.10); White Blood Cell (WBC) Count 15.5 thou/uL (4.8-10.8)
[2018-10-14] MEDS: Heparin 10,000 UNITS/ 10 ML VIAL SLOW IVP SCH ×2 (02:46→09:56)
[2018-10-14 02:48] LABS: Albumin 3.4 g/dL (3.5-5.0); Anion Gap 14 mmol/L (10-20); BUN (Urea Nitrogen) 15 mg/dL (8.4-25.7); BUN/Creatinine Ratio 15.63; Calc. Creatinine Clearance 77 mL/min (70-130); Calcium 9.3 mg/dL (7.8-10.44); Carbon Dioxide 23 mmol/L (22-29); Chloride 105 mmol/L (98-107); Estimated GFR-MDRD 82; Glucose 117 mg/dL (70-105); Phosphorus 2.9 mg/dL (2.3-4.7); Potassium 3.9 mmol/L (3.5-5.1); Sodium 138 mmol/L (136-145)
[2018-10-14] MEDS: Aspirin 325 MG TAB PO SCH (07:52)
[2018-10-14] MEDS: NIFEdipine XL 60 MG TAB PO SCH ×2 (07:52→20:47)
[2018-10-14] MEDS: Famotidine 20 MG TAB PO SCH ×2 (07:53→20:47)
[2018-10-14] MEDS: Carvedilol 25 MG TAB PO SCH ×2 (07:53→20:46)
--- NOTE | 2018-10-14 09:06 | PRG ---
DATE OF SERVICE: 10/14/2018 SUBJECTIVE: Patrick Justin is a 53-year-old gentleman who came in with chest pain and ongoing tobacco abuse. This morning, he said his pain is better. He is on a nitroglycerin drip. OBJECTIVE: VITAL SIGNS: Blood pressure 175/53, pulse 73, respirations 18. CHEST: No wheezing. CARDIAC: Normal S1, S2. No gallop. ABDOMEN: No masses. LABORATORY DATA: Lytes are normal. ASSESSMENT AND PLAN: 1. Chest pain, coronary artery disease. 2. Chronic obstructive pulmonary disease. 3. Tobacco abuse. 4. Hypertension. They are going to continue medical management of this patient. Pulmonary will follow while in the ICU. I strongly advised to quit smoking. Job ID: [id number]
--- NOTE | 2018-10-14 15:19 | PDOC.HOSPP ---
- Subjective Subjective: 53 y/o male with CAD s/p CABG, HTN,PVD and others admitted due to acute chest pain. Patient was found to have SBP above 200 and was started on nitro infusion with BP and chest pain. He however was found to have troponin elevation.Remained chest pain free. - Objective Vital Signs & Weight: Vital Signs (12 hours) Temp Pulse BP Pulse Ox 10/14/18 08:00 98.5 F 95 10/14/18 07:52 77 175/83 H 10/14/18 04:00 98.9 F Weight Weight 135 lb 2.294 oz Most Recent Monitor Data Heart Rate from ECG 62 NIBP 188/83 NIBP BP-Mean 118 Respiration from ECG 19 SpO2 97 I&O: 10/13/18 10/14/18 10/15/18 06:59 06:59 06:59 Intake Total 1027 600 Output Total 3490 925 Balance -3433 -089 Result Diagrams: 10/14/18 01:58 10/14/18 01:58 ROS - Review of Systems All systems: All other ROS were reviewed and found negative. - Medication Medications: Active Medications Generic Name Dose Route Start Last Admin Trade Name Freq PRN Reason Stop Dose Admin Aspirin 325 mg 10/13/18 09:00 10/14/18 07:52 Aspirin PO 325 mg DAILY MARCELLA Administration Atorvastatin Calcium 40 mg 10/13/18 21:00 10/13/18 20:40 Lipitor PO 40 mg HS MARCELLA Administration Carvedilol 25 mg 10/13/18 21:00 10/14/18 07:53 Coreg PO 25 mg BID MARCELLA Administration Famotidine 20 mg 10/13/18 21:00 10/14/18 07:53 Pepcid PO 20 mg BID MARCELLA Administration Heparin Sodium (Porcine) 0 units 10/13/18 04:15 10/14/18 09:56 Heparin 1,000 Units/Ml (10 Ml) SLOW IVP 1,950 unit ASDIR MARCELLA Administration Protocol Hydralazine HCl 20 mg 10/13/18 18:04 10/13/18 18:19 Apresoline SLOW IVP 20 mg Q4H PRN Administration SBP > 180 OR DBP > 110 Nitroglycerin/Dextrose 250 mls @ 0 mls/hr 10/13/18 01:45 10/14/18 10:15 Nitroglycerin 50 Mg/250 Ml Bot IVPB 250 mls INF MARCELLA Administration Protocol Titrate Heparin Sodium/Dextrose 500 mls @ 0 mls/hr 10/13/18 04:15 10/14/18 11:24 Heparin 25,000 Units/D5w 500 Ml IVPB 500 mls INF MARCELLA Administration Protocol Per Protocol Nifedipine 60 mg 10/14/18 09:00 10/14/18 07:52 Procardia Xl PO 60 mg BID MARCELLA Administration Ondansetron HCl 4 mg 10/13/18 01:35 10/13/18 22:14 Zofran IVP 4 mg Q6H PRN Administration Nausea/Vomiting - Exam awake alert Eye: PERRL ENT: normocephalic atraumatic, moist mucosa Neck: supple, symmetric, no JVD Heart: RRR, murmur present Respiratory: no wheezes, no rales, no ronchi Gastrointestinal: soft, non-tender, non-distended, normal bowel sounds Extremities: no cyanosis, no edema Neurological: CN's grossly intact, no focal deficits Psychiatric: normal affect, normal behavior, A&O x 3 Hosp A/P (1) ALISON (acute kidney injury) Code(s): N17.9 - ACUTE KIDNEY FAILURE, UNSPECIFIED Status: Acute (2) Chest pain Code(s): R07.9 - CHEST PAIN, UNSPECIFIED Status: Acute Qualifiers: Chest pain type: precordial pain Qualified Code(s): R07.2 - Precordial pain (3) Leukocytosis Code(s): D72.829 - ELEVATED WHITE BLOOD CELL COUNT, UNSPECIFIED Status: Acute (4) Malignant hypertension Code(s): I10 - ESSENTIAL (PRIMARY) HYPERTENSION Status: Acute (5) NSTEMI (non-ST elevated myocardial infarction) Code(s): I21.4 - NON-ST ELEVATION (NSTEMI) MYOCARDIAL INFARCTION Status: Acute (6) CAD (coronary artery disease) Code(s): I25.10 - ATHSCL HEART DISEASE OF [place] CORONARY ARTERY W/O ANG PCTRS Status: Chronic Qualifiers: Coronary Disease-Associated Artery/Lesion type: [place] artery [place] vs. transplanted heart: [place] heart Associated angina: angina presence unspecified Qualified Code(s): I25.10 - Atherosclerotic heart disease of [place] coronary artery without angina pectoris (7) Dyslipidemia Code(s): E78.5 - HYPERLIPIDEMIA, UNSPECIFIED Status: Chronic - Plan Increase Nifedipine to 60 mg bid Start isosorbide moninitrate at 60 mg daily wean Nitro infusion as tolerated. Acute CO treatment as per cardiology. holding lisinopril due to possibility of contrast study. Diet as tolerated.
[2018-10-14] MEDS ORDERED: Clopidogrel Bisulfate 75 MG TAB PO SCH (18:30)
[2018-10-14 18:31] LABS: CKMB 20.2 ng/mL (0-6.6); Troponin I 15.082 ng/mL (< 0.028)
[2018-10-14] MEDS: Atorvastatin Calcium 40 MG TAB PO SCH (20:46)
[2018-10-14] MEDS: Polyethylene Glycol 3350 17 GM Packet PO PRN (20:47)
[2018-10-15] MEDS: Aspirin 325 MG TAB PO SCH (08:02)
[2018-10-15] MEDS: NIFEdipine XL 60 MG TAB PO SCH ×2 (08:02→22:00)
[2018-10-15] MEDS: Famotidine 20 MG TAB PO SCH ×2 (08:03→22:00)
[2018-10-15] MEDS: Carvedilol 25 MG TAB PO SCH ×2 (08:03→22:00)
[2018-10-15] MEDS: Clopidogrel Bisulfate 75 MG TAB PO SCH (08:03)
[2018-10-15 08:33] LABS: Hemoglobin 14.7 g/dL (14.0-18.0); Platelet Count 208 thou/uL (130-400)
--- NOTE | 2018-10-15 09:32 | PRG ---
DATE OF SERVICE: 10/15/2018 SUBJECTIVE: Patrick Justin, this morning, is awake, alert, and responsive. No pain. No shortness of breath. His blood pressure is still elevated. I restarted his home Catap[place]. No shortness of breath. OBJECTIVE: VITAL SIGNS: Pulse 63; blood pressure 150/76, on nitro; saturations are on room air; and respirations 14. CHEST: No wheezing or crackles. CARDIAC: Normal S1 and S2. No gallops. ABDOMEN: No masses. LABORATORY DATA: His troponin was elevated. PTT is 72. IMPRESSION AND PLAN: Coronary artery disease, not a candidate for any intervention as per Cardiology, hypertension, tobacco abuse, chronic obstructive pulmonary disease though stable. Catapres from home, he can be weaned off the nitro. Cardiology is following. Pulmonary will follow while in the ICU. Job ID: [id number]
[2018-10-15] MEDS ORDERED: cloNIDine 0.2 MG TAB PO SCH ×2 (10:15→21:00)
--- NOTE | 2018-10-15 15:37 | PDOC.HOSPP ---
- Subjective Encounter Date: 10/15/18 Encounter Time: 14:35 Subjective: 53 y/o male with CAD s/p CABG, HTN,PVD and others admitted due to acute chest pain. Patient was found to have SBP above 200 and elevated troponin and was started on nitro infusion with improvement of BP and chest pain. Feeling better. denied chest pain. No invasive procedure contemplated by Cardiology. - Objective Vital Signs & Weight: Vital Signs (12 hours) Temp Pulse BP Pulse Ox 10/15/18 12:00 98.3 F 10/15/18 10:17 164/69 H 10/15/18 08:02 68 164/69 H 10/15/18 08:00 97 10/15/18 07:00 98.1 F 10/15/18 04:00 98.4 F Weight Weight 135 lb 2.294 oz Most Recent Monitor Data Heart Rate from ECG 56 NIBP 139/70 NIBP BP-Mean 93 Respiration from ECG 16 SpO2 99 I&O: 10/14/18 10/15/18 10/16/18 06:59 06:59 06:59 Intake Total 1027 2578.8 560 Output Total 3490 4575 600 [facility] -2463 -1996.2 -40 Result Diagrams: 10/15/18 08:04 10/14/18 01:58 ROS - Medication Medications: Active Medications Generic Name Dose Route Start Last Admin Trade Name Nareshq PRN Reason Stop Dose Admin Aspirin 325 mg 10/13/18 09:00 10/15/18 08:02 Aspirin PO 325 mg DAILY MARCELLA Administration Atorvastatin Calcium 40 mg 10/13/18 21:00 10/14/18 20:46 Lipitor PO 40 mg HS MARCELLA Administration Carvedilol 25 mg 10/13/18 21:00 10/15/18 08:03 Coreg PO 25 mg BID MARCELLA Administration Clopidogrel Bisulfate 75 mg 10/15/18 09:00 10/15/18 08:03 Plavix PO 75 mg DAILY MARCELLA Administration Famotidine 20 mg 10/13/18 21:00 10/15/18 08:03 Pepcid PO 20 mg BID MARCELLA Administration Heparin Sodium (Porcine) 0 units 10/13/18 04:15 10/14/18 09:56 Heparin 1,000 Units/Ml (10 Ml) SLOW IVP 1,950 unit ASDIR MARCELLA Administration Protocol Hydralazine HCl 20 mg 10/13/18 18:04 10/13/18 18:19 Apresoline SLOW IVP 20 mg Q4H PRN Administration SBP > 180 OR DBP > 110 Nitroglycerin/Dextrose 250 mls @ 0 mls/hr 10/13/18 01:45 10/14/18 20:09 Nitroglycerin 50 Mg/250 Ml Bot IVPB 250 mls INF MARCELLA Administration Protocol Titrate Isosorbide Mononitrate 60 mg 10/15/18 09:00 10/15/18 08:02 Imdur Er PO 60 mg DAILY MARCELLA Administration Nifedipine 60 mg 10/14/18 09:00 10/15/18 08:02 Procardia Xl PO 60 mg BID MARCELLA Administration Ondansetron HCl 4 mg 10/13/18 01:35 10/13/18 22:14 Zofran IVP 4 mg Q6H PRN Administration Nausea/Vomiting Polyethylene Glycol 17 gm 10/14/18 20:27 10/14/18 20:47 Miralax PO 17 gm DAILYPRN PRN Administration Constipation - Exam awake alert Eye: PERRL, anicteric sclera ENT: normocephalic atraumatic Neck: supple, no JVD Heart: RRR, murmur present Respiratory: CTAB, no wheezes, no rales, no ronchi, normal chest expansion Gastrointestinal: soft, non-tender, non-distended, normal bowel sounds Extremities: no cyanosis, no edema Neurological: CN's grossly intact, no focal deficits Psychiatric: normal affect, normal behavior, A&O x 3 Hosp A/P (1) Malignant hypertension Code(s): I10 - ESSENTIAL (PRIMARY) HYPERTENSION Status: Acute (2) NSTEMI (non-ST elevated myocardial infarction) Code(s): I21.4 - NON-ST ELEVATION (NSTEMI) MYOCARDIAL INFARCTION Status: Acute (3) ALISON (acute kidney injury) Code(s): N17.9 - ACUTE KIDNEY FAILURE, UNSPECIFIED Status: Acute (4) Chest pain Code(s): R07.9 - CHEST PAIN, UNSPECIFIED Status: Acute Qualifiers: Chest pain type: precordial pain Qualified Code(s): R07.2 - Precordial pain (5) Leukocytosis Code(s): D72.829 - ELEVATED WHITE BLOOD CELL COUNT, UNSPECIFIED Status: Acute (6) CAD (coronary artery disease) Code(s): I25.10 - ATHSCL HEART DISEASE OF [place] CORONARY ARTERY W/O ANG PCTRS Status: Chronic Qualifiers: Coronary Disease-Associated Artery/Lesion type: [place] artery [place] vs. transplanted heart: [place] heart Associated angina: angina presence unspecified Qualified Code(s): I25.10 - Atherosclerotic heart disease of [place] coronary artery without angina pectoris (7) Dyslipidemia Code(s): E78.5 - HYPERLIPIDEMIA, UNSPECIFIED Status: Chronic - Plan Will restart lisinopril as no invasive procedure is planned by cardiology. DC clonidine due to non compliance with associated rebound HTN Continue other treatments. transfer to Tele
[2018-10-15] MEDS ORDERED: Lisinopril 20 MG TAB PO SCH (15:45)
--- NOTE | 2018-10-15 19:01 | PDOC.CTH ---
Cardiology Progress Note - Subjective Pt. seen and eval. by me. No cardiac complaints. No new events overnight. - Objective Vital Signs Temp Pulse BP Pulse Ox 10/15/18 17:00 98.3 F 10/15/18 16:18 164/69 H 10/15/18 12:00 98.3 F 10/15/18 10:17 164/69 H 10/15/18 08:02 68 164/69 H 10/15/18 08:00 97 10/15/18 07:00 98.1 F Weight 135 lb 2.294 oz 10/14/18 10/15/18 10/16/18 06:59 06:59 06:59 Intake Total 1027 2578.8 900 Output Total 3490 4575 900 Balance -2463 -1996.2 0 - Physical Examination General/Neuro: alert & oriented x3 Neck: no JVD present, other: (bilat. carotid bruits, radiastion from aorta.) Lungs: CTA, unlabored respirations Heart: RRR Abdomen: NT/ND, soft - Telemetry Telemetry Rhythm: NSR - Labs Result Diagrams: 10/15/18 08:04 10/14/18 01:58 Troponin/CKMB CK-MB (CK-2) 20.2 ng/mL (0-6.6) H* 10/14/18 01:58 Troponin I 15.082 ng/mL (< 0.028) H* 10/14/18 01:58 - Assessment/Plan 1. CAD: s/p CABG. Inoperable CAD not a candidate for intervention. Medical management only. 2. s/p : NSTEMI. Continue present meds. 3.HTN urgency. Continue to adjust meds. Was controlled in the past on clonidine. 4. tobacco abuse: pt. has refused to stop in the past. Will need help to stop. 5. PVD: totally occluded distal Aorta. Diffuse disease.
[2018-10-15] MEDS: Atorvastatin Calcium 40 MG TAB PO SCH ×2 (21:59→22:00)
[2018-10-16 04:58] LABS: #Basophils 0.1 thou/uL (0.0-0.2); #Eosinphils 0.2 thou/uL (0.0-0.7); #Lymphocytes 3.2 thou/uL (1.20-3.40); #Monocytes 1.3 thou/uL (0.11-0.59); #Neutrophils 6.9 thou/uL (1.40-6.50); %Eosinophils 1.8 % (0.0-10.0); %Lymphocytes 27.3 % (21.0-51.0); %Monocytes 11.2 % (0.0-10.0); %Neutrophils 58.7 % (42.0-75.0); Hemoglobin 13.8 g/dL (14.0-18.0); Mean Corpuscular HGB CONC 33.7 g/dL (32.0-36.0); Mean Corpuscular Hemoglobin 32.6 pg (27.0-31.0); Mean Corpuscular Volume 96.8 fL (78.0-98.0); Mean Platelet Volume 9.4 fL (7.4-10.4); Platelet Count 193 thou/uL (130-400); RBC Distribution Width 12.7 % (11.5-14.5); Red Blood Cell (RBC) Count 4.23 mill/uL (4.70-6.10); White Blood Cell (WBC) Count 11.8 thou/uL (4.8-10.8)
[2018-10-16 05:20] LABS: Anion Gap 12 mmol/L (10-20); BUN (Urea Nitrogen) 25 mg/dL (8.4-25.7); Calc. Creatinine Clearance 72 mL/min (70-130); Calcium 9.3 mg/dL (7.8-10.44); Carbon Dioxide 25 mmol/L (22-29); Chloride 103 mmol/L (98-107); Estimated GFR-MDRD 76; Glucose 83 mg/dL (70-105); Potassium 3.8 mmol/L (3.5-5.1); Sodium 136 mmol/L (136-145)
[2018-10-16] MEDS ORDERED: Carvedilol 25 MG TAB PO SCH (08:41)
[2018-10-16] MEDS: Famotidine 20 MG TAB PO SCH ×2 (08:51→20:34)
[2018-10-16] MEDS: Aspirin 325 MG TAB PO SCH (08:51)
[2018-10-16] MEDS: Clopidogrel Bisulfate 75 MG TAB PO SCH (08:51)
[2018-10-16] MEDS: NIFEdipine XL 60 MG TAB PO SCH ×2 (08:52→20:32)
[2018-10-16] MEDS: Lisinopril 20 MG TAB PO SCH (08:55)
--- NOTE | 2018-10-16 09:16 | PRG ---
DATE OF SERVICE: 10/16/2018 SUBJECTIVE: This morning, the patient is awake, alert, and responsive. He is better. No chest pain. OBJECTIVE: VITAL SIGNS: Blood pressure 121/61, temperature 98, pulse 53, saturations on room air. CHEST: No wheezing or crackles. CARDIAC: Normal S1 and S2. No gallops. ABDOMEN: No masses. IMPRESSION: Coronary artery disease, ongoing tobacco abuse, dyspnea. PLAN: Disposition as per Cardiology. Pulmonary will follow at a distance. Call if needed. Job ID: [id number]
--- NOTE | 2018-10-16 11:50 | PDOC.CTH ---
Cardiology Progress Note - Objective Vital Signs Temp Pulse Resp BP BP Pulse Ox 10/16/18 08:55 127/61 10/16/18 08:52 53 L 127/62 10/16/18 08:49 98.4 F 53 L 16 127/61 97 10/16/18 08:00 98 10/16/18 04:00 98.1 F 48 L 12 155/69 H 98 10/16/18 03:00 98 10/16/18 00:00 98.6 F 53 L 16 134/68 99 Weight 135 lb 2.294 oz 10/15/18 10/16/18 10/17/18 06:59 06:59 06:59 Intake Total 2578.8 1020 Output Total 4575 1150 Balance -1996.2 -130 - Physical Examination General/Neuro: alert & oriented x3 Neck: no JVD present, other: (bilat. bruits) Lungs: CTA, unlabored respirations Heart: RRR Abdomen: NT/ND, soft Extremities: other: (no palp.pulses in the lower extremities.) - Labs Result Diagrams: 10/16/18 04:20 10/16/18 04:20 Troponin/CKMB CK-MB (CK-2) 20.2 ng/mL (0-6.6) H* 10/14/18 01:58 Troponin I 15.082 ng/mL (< 0.028) H* 10/14/18 01:58 - Assessment/Plan 1. CAD: s/p CABG. Inoperable CAD not a candidate for intervention. Medical management only. 2. s/p : NSTEMI. Continue present meds. 3.HTN urgency. Continue to adjust meds. Was controlled in the past on clonidine but now stable off clonidine and on other meds. Continue present meds. 4. tobacco abuse: pt. has refused to stop in the past. Will need help to stop. He says he will stop this time. 5. PVD: totally occluded distal Aorta. Diffuse disease. If the BP remains stable this AM he could be d/c'd to home later today.
--- NOTE | 2018-10-16 11:51 | PDOC.HOSPP ---
- Subjective Encounter Date: 10/16/18 Encounter Time: 09:47 Subjective: 53 y/o male with CAD s/p CABG, HTN,PVD and others admitted due to acute chest pain. Patient was found to have SBP above 200 and elevated troponin and was started on nitro infusion with improvement of BP and chest pain. Feeling better. No invasive procedure contemplated by Cardiology. - Objective Vital Signs & Weight: Vital Signs (12 hours) Temp Pulse Resp BP BP Pulse Ox 10/16/18 08:55 127/61 10/16/18 08:52 53 L 127/62 10/16/18 08:49 98.4 F 53 L 16 127/61 97 10/16/18 08:00 98 10/16/18 04:00 98.1 F 48 L 12 155/69 H 98 10/16/18 03:00 98 10/16/18 00:00 98.6 F 53 L 16 134/68 99 Weight Weight 135 lb 2.294 oz Most Recent Monitor Data Heart Rate from ECG 57 NIBP 155/69 NIBP BP-Mean 97 Respiration from ECG 12 SpO2 98 I&O: 10/15/18 10/16/18 10/17/18 06:59 06:59 06:59 Intake Total 2578.8 1020 Output Total 4575 1150 Balance -1996.2 -130 Result Diagrams: 10/16/18 04:20 10/16/18 04:20 ROS - Medication Medications: Active Medications Generic Name Dose Route Start Last Admin Trade Name Freq PRN Reason Stop Dose Admin Aspirin 325 mg 10/13/18 09:00 10/16/18 08:51 Aspirin PO 325 mg DAILY MARCELLA Administration Carvedilol 12.5 mg 10/16/18 08:41 10/16/18 08:55 Coreg PO 12.5 mg BID MARCELLA Administration Clopidogrel Bisulfate 75 mg 10/15/18 09:00 10/16/18 08:51 Plavix PO 75 mg DAILY MARCELLA Administration Famotidine 20 mg 10/13/18 21:00 10/16/18 08:51 Pepcid PO 20 mg BID MARCELLA Administration Heparin Sodium (Porcine) 0 units 10/13/18 04:15 10/14/18 09:56 Heparin 1,000 Units/Ml (10 Ml) SLOW IVP 1,950 unit ASDIR MARCELLA Administration Protocol Hydralazine HCl 20 mg 10/13/18 18:04 10/13/18 18:19 Apresoline SLOW IVP 20 mg Q4H PRN Administration SBP > 180 OR DBP > 110 Lisinopril 40 mg 10/16/18 09:00 10/16/18 08:55 Zestril PO 40 mg DAILY MARCELLA Administration Nifedipine 60 mg 10/14/18 09:00 10/16/18 08:52 Procardia Xl PO 60 mg BID MARCELLA Administration Ondansetron HCl 4 mg 10/13/18 01:35 10/13/18 22:14 Zofran IVP 4 mg Q6H PRN Administration Nausea/Vomiting Polyethylene Glycol 17 gm 10/14/18 20:27 10/14/18 20:47 Miralax PO 17 gm DAILYPRN PRN Administration Constipation Sodium Chloride 10 ml 10/15/18 21:00 10/16/18 08:53 Flush - Normal Saline IVF 10 ml Q12HR MARCELLA Administration - Exam awake alert Eye: anicteric sclera ENT: normocephalic atraumatic Neck: supple, symmetric, no JVD Heart: RRR, murmur present Respiratory: CTAB, no wheezes, no rales, no ronchi Gastrointestinal: soft, non-tender, non-distended, normal bowel sounds Extremities: no cyanosis, no edema Neurological: CN's grossly intact, no focal deficits Psychiatric: normal affect, A&O x 3 Hosp A/P (1) Malignant hypertension Code(s): I10 - ESSENTIAL (PRIMARY) HYPERTENSION Status: Acute (2) NSTEMI (non-ST elevated myocardial infarction) Code(s): I21.4 - NON-ST ELEVATION (NSTEMI) MYOCARDIAL INFARCTION Status: Acute (3) ALISON (acute kidney injury) Code(s): N17.9 - ACUTE KIDNEY FAILURE, UNSPECIFIED Status: Acute (4) Chest pain Code(s): R07.9 - CHEST PAIN, UNSPECIFIED Status: Acute Qualifiers: Chest pain type: precordial pain Qualified Code(s): R07.2 - Precordial pain (5) Leukocytosis Code(s): D72.829 - ELEVATED WHITE BLOOD CELL COUNT, UNSPECIFIED Status: Acute (6) CAD (coronary artery disease) Code(s): I25.10 - ATHSCL HEART DISEASE OF [place] CORONARY ARTERY W/O ANG PCTRS Status: Chronic Qualifiers: Coronary Disease-Associated Artery/Lesion type: [place] artery [place] vs. transplanted heart: [place] heart Associated angina: angina presence unspecified Qualified Code(s): I25.10 - Atherosclerotic heart disease of [place] coronary artery without angina pectoris (7) Dyslipidemia Code(s): E78.5 - HYPERLIPIDEMIA, UNSPECIFIED Status: Chronic - Plan Target is to simplify patient's antihypertensives to improve compliance. patient also is a poor candidate for clonidine given rebound HTN associated with missed doses Will decrease coreg to 12.5 bid due to bradyacardia Will increase isosorbide to 60 bid. Patient is cuirrently on only 4 medications Lisinopril, coreg, isosorbide and nifedipine. Will dc clonidine and hydralazine. D/W case mgt about helping patient with medications. Possible discharge tomorrow
[2018-10-16] MEDS: Polyethylene Glycol 3350 17 GM Packet PO PRN (12:13)
[2018-10-16] MEDS: Carvedilol 6.25 MG TAB PO SCH (20:33)
[2018-10-16] MEDS ORDERED: Lisinopril 20 MG TAB PO SCH (21:00)
[2018-10-16] MEDS ORDERED: Atorvastatin Calcium 40 MG TAB PO SCH (21:00)
[2018-10-17 04:53] LABS: #Basophils 0.1 thou/uL (0.0-0.2); #Eosinphils 0.4 thou/uL (0.0-0.7); #Lymphocytes 3.3 thou/uL (1.20-3.40); #Monocytes 1.4 thou/uL (0.11-0.59); #Neutrophils 7.9 thou/uL (1.40-6.50); %Basophils 0.6 % (0.0-1.0); %Eosinophils 2.8 % (0.0-10.0); %Lymphocytes 25.4 % (21.0-51.0); %Neutrophils 60.2 % (42.0-75.0); Hemoglobin 14.6 g/dL (14.0-18.0); Mean Corpuscular HGB CONC 34.5 g/dL (32.0-36.0); Mean Corpuscular Hemoglobin 33.5 pg (27.0-31.0); Mean Platelet Volume 9.7 fL (7.4-10.4); Platelet Count 203 thou/uL (130-400); Red Blood Cell (RBC) Count 4.35 mill/uL (4.70-6.10); White Blood Cell (WBC) Count 13.1 thou/uL (4.8-10.8)
[2018-10-17 05:08] LABS: Anion Gap 9 mmol/L (10-20); BUN (Urea Nitrogen) 30 mg/dL (8.4-25.7); Calc. Creatinine Clearance 66 mL/min (70-130); Calcium 9.7 mg/dL (7.8-10.44); Carbon Dioxide 31 mmol/L (22-29); Chloride 103 mmol/L (98-107); Estimated GFR-MDRD 69; Glucose 89 mg/dL (70-105); Potassium 4.9 mmol/L (3.5-5.1); Sodium 138 mmol/L (136-145)
[2018-10-17] MEDS: Carvedilol 6.25 MG TAB PO SCH (08:12)
[2018-10-17] MEDS: NIFEdipine XL 60 MG TAB PO SCH (08:12)
[2018-10-17] MEDS: Clopidogrel Bisulfate 75 MG TAB PO SCH (08:13)
[2018-10-17] MEDS: Aspirin 325 MG TAB PO SCH (08:13)
[2018-10-17] MEDS: Famotidine 20 MG TAB PO SCH (08:13)
[2018-10-17] MEDS: Lisinopril 20 MG TAB PO SCH (08:13)
[2018-10-17 12:30] VITALS: TEMP 98
[2018-10-17 15:21] VITALS: BP 195/88
--- NOTE | 2018-10-20 08:07 | DIS ---
DATE OF ADMISSION: 10/13/2018 DATE OF DISCHARGE: 10/17/2018 PRIMARY CARE PHYSICIAN: Dr. Jasper Barton. DISCHARGE DIAGNOSES: 1. Malignant hypertension. 2. Acute yni-YO-qgvcxgfie myocardial infarction. 3. Acute kidney injury. 4. Leukocytosis. 5. Severe coronary artery disease, status post coronary artery bypass grafting. 6. Dyslipidemia. 7. Tobacco abuse disorder. 8. Chest pain. CONSULTS: 1. Cardiology. 2. Pulmonary and Critical Care. HOSPITAL COURSE: A 53-year-old male patient with known history of severe coronary artery disease status post CABG, hypertension, peripheral vascular disease, and others, who was admitted due to acute chest pain. The patient was found to have acute elevation in systolic blood pressure above 200 as well as elevated troponin. Impression of malignant hypertension as well as acute gzx-AD-matienclg myocardial infarction was made and the patient was started on nitro infusion with improvement in blood pressure and chest pain. Cardiology consult was obtained, and following the review of the patient's situation, it was felt that there is no indication for invasive procedure, and optimization of medical management and BP management is recommended. The patient was deemed to be a poor candidate for clonidine due to his noncompliance history and rebound hypertension associated with clonidine, hence he was weaned off clonidine. Nifedipine and isosorbide mononitrate were titrated up to get adequate BP control. The patient remained stable and was subsequently discharged. PHYSICAL EXAMINATION: VITAL SIGNS: Temperature 98.2, pulse 67, respiratory rate 17, SpO2 97 on room air, blood pressure is 163/76. GENERAL: Chronically ill-looking male, in no obvious distress. The patient appears older than stated age. HEENT: Normocephalic and atraumatic. CARDIOVASCULAR: Regular rhythm and rate with normal heart sounds. Systolic murmur noted. RESPIRATORY: Good air entry bilaterally with no obvious crackle or rhonchi. GI: Full, soft, nontender, nondistended with normal bowel sounds. EXTREMITIES: Grossly normal looking, atraumatic, with no edema or erythema. NEUROLOGIC: Conscious, alert, oriented x3 with appropriate mental status. Cranial nerves 2 through 12 are grossly intact. ADDENDUM: The patient was found to have elevated blood pressure after he got worked up, saying that his discharge has been delayed. He was given additional medication but he would not stay to recheck the blood pressure and soon left without taking his discharge peppers. By this time, medications have been sent to his pharmacy and the social work manager who will help him working to see if they could get his prescriptions covered for him. DISCHARGE DISPOSITION: Home. DISCHARGE CONDITION: Improved. DISCHARGE MEDICATIONS: 1. Bupropion 150 mg p.o. b.i.d. 2. Lasix 20 mg p.o. daily. 3. Sublingual nitro 0.4 mg tablet sublingual p.r.n. for chest pain. 4. Zoloft 100 mg p.o. daily. 5. Aspirin 325 mg p.o. daily. 6. Lipitor 80 mg p.o. daily at bedtime. 7. Coreg 6.25 mg p.o. b.i.d. 8. Plavix 75 mg p.o. daily. 9. Isosorbide mononitrate 120 mg p.o. b.i.d. 10. Lisinopril 40 mg p.o. daily. 11. Nifedipine 60 mg p.o. b.i.d. This discharge took more than 38 minutes. Job ID: [id number]
== END 2018-10-17 14:46 | disposition left against medical advice (07) | DRG 281 ==
LOC: ERS 23:49 → CCU 10-13 01:11 → 2NO 10-15 21:03
PROVIDERS: ADMIT Hospitalist; ATTEND Hospitalist
DX: I21.4 Non-ST elevation (NSTEMI) myocardial infarction (principal); N17.9 Acute kidney failure, unspecified; I16.1 Hypertensive emergency; I42.9 Cardiomyopathy, unspecified; D72.829 Elevated white blood cell count, unspecified; I25.10 Atherosclerotic heart disease of native coronary artery without angina pectoris; E78.5 Hyperlipidemia, unspecified; F17.210 Nicotine dependence, cigarettes, uncomplicated; I11.0 Hypertensive heart disease with heart failure; I50.9 Heart failure, unspecified; F41.9 Anxiety disorder, unspecified; F32.9 Major depressive disorder, single episode, unspecified; R73.9 Hyperglycemia, unspecified; F12.10 Cannabis abuse, uncomplicated; I73.9 Peripheral vascular disease, unspecified; Z95.1 Presence of aortocoronary bypass graft; I25.2 Old myocardial infarction; Z95.5 Presence of coronary angioplasty implant and graft; Z90.49 Acquired absence of other specified parts of digestive tract
CPT/HCPCS: 36415; 71045; 80048; 80053; 80069; 82553; 83036; 83690; 83735; 83880; 84484; 85014; 85018; 85025; 85049; 85730; 93005; 93306; 93798; 96365; 96366; 96375; 99292; J0360; J1644; J2405; J2765

== ENCOUNTER 2018-12-24 10:57 | Inpatient (IN) | payer SELFPAY ==
[2018-12-24] MEDS ORDERED: Ondansetron PF 4 MG/2 ML Vial ONE (11:31)
[2018-12-24 13:03] LABS: CKMB 25.2 ng/mL (0-6.6)
[2018-12-24] MEDS ORDERED: Ondansetron ODT 4 MG TAB SL PRN (15:29)
[2018-12-24] MEDS ORDERED: Ondansetron PF 4 MG/2 ML Vial IVP PRN (15:29)
[2018-12-24 16:16] VITALS: BMI 20.3
[2018-12-24] MEDS: Nitroglycerin 2% Ointment 1 INCH/1 GM Packet TOP SCH (16:16)
[2018-12-24 16:32] LABS: Troponin I 14.343 ng/mL (< 0.028)
[2018-12-24 18:35] LABS: Troponin I 18.217 ng/mL (< 0.028)
[2018-12-24] MEDS ORDERED: Acetaminophen 325 MG TAB PO PRN (19:10)
[2018-12-24] MEDS ORDERED: Furosemide 20 MG TAB PO PRN (19:13)
--- NOTE | 2018-12-24 20:53 | CON ---
DATE OF CONSULTATION: 12/24/2018 REASON FOR CONSULTATION: Non-STEMI and AFib. PRIMARY APPLICATION SECURITY DEVELOPER: Dr. Tanisha Stewart. HISTORY OF PRESENT ILLNESS: Mr. Justin is a pleasant 53-year-old white gentleman, who comes to the hospital for chest pain and palpitations. He started to have chest pain this morning and palpitations. He noticed his heart rate was in the 150s. He decided to come in for evaluation. He was found to be in AFib with RVR. He was started on diltiazem drip and admitted. He eventually converted back to sinus rhythm and the diltiazem drip had to be stopped and he became bradycardic while he was in sinus. His pain actually improved once his heart went back to normal rhythm. However, his troponin has been up trending, so Cardiology has been consulted for all of this. He has a significant history of coronary artery disease. The last catheterization was back in July of 2017. At that point, his LV function was about 30% to 35%. However, on more recent echocardiogram, his LV function seems to be normal. At that time, he had severe [place] disease. His JORDAN to the LAD was patent, vein graft to RCA was patent with diffuse plaque in the vein graft just starting to generate a vein graft to ramus or circumflex system had a 90% anastomosis lesion that is complex and not amenable to any type of stenting. He currently is pain-free on my evaluation. When I told him that we may be doing a heart catheterization, he tells me that he is under the impression that there is really nothing else that can be done. I reviewed his films and in fact, he has a severe diffuse disease distally on all his bypasses and there may not be much to do even if he lost a bypass. Currently, he is pain-free and he is lying comfortably on the bed. PAST MEDICAL HISTORY: 1. History of ischemic cardiomyopathy, EF as low as 30% to 35% in the past, however, most recent echo was normal at 55%. 2. Coronary artery disease, status post CABG in the past. 3. Renal artery stenosis. 4. Hyperlipidemia. SURGICAL HISTORY: 1. CABG x3. 2. Cholecystectomy. 3. Multiple stents in the past. SOCIAL HISTORY: Uses marijuana. No alcohol. Smokes half pack a day. FAMILY HISTORY: Early coronary artery disease. ALLERGIES: NO KNOWN DRUG ALLERGIES. OUTPATIENT MEDICATIONS: 1. Hydralazine 50 mg t.i.d. 2. Sertraline. 3. Nitroglycerin sublingual p.r.n. 4. Lisinopril 40 mg a day. 5. Isosorbide mononitrate 120 mg a day. 6. Furosemide 20 mg a day. 7. Plavix 75 mg a day. 8. mg b.i.d. 9. Atorvastatin 80 mg at bedtime. 10. Aspirin 325 a day. ALLERGIES: NO KNOWN DRUG ALLERGIES. REVIEW OF SYSTEMS: A 12-point review of systems was done and was all negative unless stated in the history of present illness. PHYSICAL EXAMINATION: VITAL SIGNS: Temperature 98.2, pulse 59, respiratory rate 16, saturating 100% on room air, and blood pressure 135/64. GENERAL: Awake, alert, and oriented x3, in no distress. HEENT: Normocephalic and atraumatic. NECK: Supple. LUNGS: Clear. CARDIOVASCULAR: S1 and S2. No S3 or S4. There is a grade 2/6 systolic murmur at the right upper sternal border. ABDOMEN: Soft. Positive bowel sounds. EXTREMITIES: No edema. SKIN: Warm and dry. LABORATORY DATA: Laboratory work was reviewed. Chemistry with troponin of 3.4 on admission, up to 14, now up to 18. EKG was reviewed, AFib with RVR with lateral ischemic changes. The EKG showed very subtle ST elevations in the inferior leads while he was back in sinus rhythm. He was sinus bradycardic at that time. He also has an underlying right bundle-branch block. Most recent echocardiogram was done in October of this year showed an EF of 55% to 60%. ASSESSMENT/PLAN: 1. Atrial fibrillation with rapid ventricular response, new onset, back in sinus rhythm. 2. Yqh-SG-lkktwgefv myocardial infarction. 3. Severe coronary artery disease, status post coronary artery bypass grafting and diffuse disease in his [place] vessels. PLAN: 1. Most likely, he lost one of the grafts. These were already not doing well on heart catheterization about a year and a half ago. At this point, he is pain-free and he would like to be conservative with this care. He had a very complex catheterization last time, he needed to have a left radial approach to get to the JORDAN which was a very mature vessel to decent-sized left anterior descending artery. More than likely, he lost either his right coronary artery graft or his circumflex graft which were both already starting to generate in the past. At this time, we will plan on doing full anticoagulation for 48 hours. After that, he would be a candidate for changing him to an oral anticoagulant like Eliquis or Xarelto given his new onset atrial fibrillation and his CHADS-VASc score of at least 2. He may not be the best candidate given his drug use. However, at this point, we will just continue anticoagulated with Lovenox. 2. Repeat echocardiogram to assess LV function. 3. We will continue medical therapy for now. 4. Further recommendations per Dr. Stewart in the morning. Thank you for letting us to participate in the care of your patient. We will leave n.p.o. post midnight in case anything changes clinically, but currently plan is to treat medically for now. Job ID: [id number]
[2018-12-24] MEDS ORDERED: Atorvastatin Calcium 40 MG TAB PO SCH (21:00)
--- NOTE | 2018-12-24 21:28 | HP ---
PRIMARY CARE PHYSICIAN: Jasper Barton DO. CHIEF COMPLAINT: Chest pain. HISTORY OF PRESENT ILLNESS: Mr. Justin is a 53-year-old man, with a past medical history of severe coronary artery disease, previous OR x8, hypertension, hyperlipidemia, atrial fibrillation, who had been seen at the outside [facility] earlier today for chest pain. He was found to be in AFib with RVR with heart rate in the 150s. Therefore, he was started on IV nitroglycerin and Cardizem and then later sent to [facility] for further workup and management. However, en route, the patient became hypotensive therefore was taken off the IV Cardizem and nitroglycerin. He had been found to be converted to sinus rhythm and his chest pain and other symptoms resolved. He then denied any fever, chills, any headache, blurred vision, dizziness, any further chest pain, palpitations, shortness of breath, abdominal pain, nausea, or vomiting. His serial troponins were found to be indeterminate initially, however, they had trended up to 3.4, then to 14.3 and 18.2 later on. Cardiology, Dr. Oglesby was then consulted who had seen the patient, the patient states that his database programmer analyst is Dr. Stewart and he states that the last heart cath was about a year ago, he has extensive coronary artery disease and his last echocardiogram revealed a preserved EF of 55% to 60%. The patient had a previous heart catheterization 08/08/2017, which revealed severe three-vessel CAD with all [place] vessels 100% occluded. JORDAN to LAD patent with no stenosis. His EF was found to be 30% to 35%. SVG to RCA, PDA patent, diffuse plaque in SVG, mid and proximal 50% stenosis noted, and SVG to ramus or circumflex is patent about 90% at the anastomosis. It was deemed that the patient was not a good candidate for any sort of intervention at that time and medical therapy was strongly recommended with statin, beta-herbie, and ZENY inhibitor. The patient was treated with full dose Lovenox with 1 mg/kg b.i.d. and transferred up to the floor where he had remained stable. REVIEW OF SYSTEMS: All other systems reviewed and found to be negative unless mentioned in HPI. PAST MEDICAL HISTORY: Hypertension, hyperlipidemia, coronary artery disease, myocardial infarction x8, renal stenosis. PAST SURGICAL HISTORY: Cholecystectomy, CABG x3, cardiac stents x1. PSYCHIATRIC HISTORY: Includes anxiety, depression with previous inpatient psychiatric admission and history of a suicide attempt, however, the patient is not actively suicidal and no suicidal ideation at this time is noted. SOCIAL HISTORY: The patient denies any alcohol, but states that he is a current tobacco smoker and he smokes about a half pack per day. He is also a prior IV drug user and has a history of abusing marijuana. KNOWN ALLERGIES: No known drug allergies. CURRENT HOME MEDICATIONS: 1. Nitroglycerin 0.4 mg as needed for chest pain. 2. Aspirin 325 mg daily. 3. Atorvastatin 80 mg daily. 4. Carvedilol 6.25 twice daily. 5. Clopidogrel 75 mg daily. 6. Furosemide 20 mg daily. 7. Hydralazine 50 mg t.i.d. 8. Isosorbide 120 mg b.i.d. 9. Lisinopril 40 mg daily. 10. Sertraline 100 mg daily. PHYSICAL EXAMINATION: VITAL SIGNS: BP 135/64, pulse 55, respirations 16, temperature 98.2, O2 saturation 100% on room air. GENERAL: The patient is awake, alert, and oriented x3. He is currently lying comfortably in bed and in no acute distress. HEENT: Atraumatic, normocephalic. Pupils are round and reactive to light. Extraocular muscles intact. Moist mucous membranes noted. NECK: Soft and supple. Trachea midline. CARDIOVASCULAR: Positive S1 and S2. Regular rate and rhythm, 3/6 systolic murmur noted. RESPIRATORY: Clear to auscultation bilaterally. No wheezes, rales, or rhonchi. ABDOMEN: Soft, nontender. Bowel sounds present. EXTREMITIES: Moves all extremities equal. Pedal and radial pulses 2+ bilaterally. No edema noted. NEUROLOGIC: Cranial nerves 2 through 12 grossly intact. No focal deficits noted. Speech intact and normal. Gait not assessed. SKIN: Warm, dry, and intact. No rash. No ulceration noted. PSYCHIATRIC: Good mood and affect. LABORATORY DATA: WBC 16.7, RBC 4.29, hemoglobin 13.7, hematocrit 41.0, platelet 245. Sodium 141, potassium 4.1, anion gap 19, BUN 23, creatinine 1.46, estimated GFR 51, glucose 176. Last hemoglobin A1c 10/13/2018 showed 5.2. Troponin 0.047 to 3.4 to 14.3 to 18.2. BNP 467.4. DIAGNOSTIC IMAGING: Portable chest x-ray shows no interval change from recent exam. ASSESSMENT AND PLAN: 1. Hjo-kv-yzmrvmqsb myocardial infarction. The patient will be treated medically, and our Cardiology Services consulted. He will also be treated with full-dose Lovenox 1 mg/kg twice daily. He will be monitored on telemetry. His last echocardiogram revealed a preserved ejection fraction and last heart catheterization showed severe coronary artery disease. 2. Hypertension. 3. Hyperlipidemia. 4. Atrial fibrillation with rapid ventricular response. He was treated with Cardizem and Lovenox. He is currently now in normal sinus rhythm on the monitor. As above, out Cardiology Service is consulted for further evaluation. 5. Coronary artery disease status post coronary artery bypass graft. 6. Gastrointestinal prophylaxis. 7. Code status is full code. DISPOSITION: Pending further workup and clinical findings. Job ID: [id number]
[2018-12-24] MEDS: Carvedilol 6.25 MG TAB PO SCH (22:30)
[2018-12-24] MEDS: Enoxaparin Sodium 60 MG/0.6 ML SYRINGE SC SCH (23:00)
[2018-12-25] MEDS: Nitroglycerin 2% Ointment 1 INCH/1 GM Packet TOP SCH ×2 (00:21→05:11)
[2018-12-25] MEDS: hydrALAZINE 25 MG TAB PO SCH ×2 (00:21→08:21)
[2018-12-25 05:27] LABS: #Basophils 0.1 thou/uL (0.0-0.2); #Eosinphils 0.2 thou/uL (0.0-0.7); #Lymphocytes 2.8 thou/uL (1.20-3.40); #Monocytes 0.9 thou/uL (0.11-0.59); #Neutrophils 8.2 thou/uL (1.40-6.50); %Basophils 0.7 % (0.0-1.0); %Eosinophils 1.5 % (0.0-10.0); %Lymphocytes 23.2 % (21.0-51.0); %Monocytes 7.6 % (0.0-10.0); %Neutrophils 67.1 % (42.0-75.0); Hemoglobin 12.7 g/dL (14.0-18.0); Mean Corpuscular HGB CONC 34.1 g/dL (32.0-36.0); Mean Corpuscular Hemoglobin 33.9 pg (27.0-31.0); Mean Corpuscular Volume 99.4 fL (78.0-98.0); Mean Platelet Volume 9.8 fL (7.4-10.4); Platelet Count 214 thou/uL (130-400); RBC Distribution Width 13.3 % (11.5-14.5); Red Blood Cell (RBC) Count 3.73 mill/uL (4.70-6.10); White Blood Cell (WBC) Count 12.3 thou/uL (4.8-10.8)
[2018-12-25 05:58] LABS: Anion Gap 11 mmol/L (10-20); BUN (Urea Nitrogen) 20 mg/dL (8.4-25.7); Calc. Creatinine Clearance 62 mL/min (70-130); Calcium 8.7 mg/dL (7.8-10.44); Carbon Dioxide 23 mmol/L (22-29); Chloride 108 mmol/L (98-107); Estimated GFR-MDRD 64; Glucose 82 mg/dL (70-105); Sodium 138 mmol/L (136-145)
[2018-12-25] MEDS: Carvedilol 6.25 MG TAB PO SCH (08:22)
[2018-12-25] MEDS: Enoxaparin Sodium 60 MG/0.6 ML SYRINGE SC SCH (08:22)
[2018-12-25 08:26] VITALS: BP 172/81
[2018-12-25 08:48] VITALS: TEMP 98.7
[2018-12-25] MEDS ORDERED: Aspirin 325 MG TAB PO SCH (09:00)
[2018-12-25] MEDS ORDERED: Clopidogrel Bisulfate 75 MG TAB PO SCH (09:00)
[2018-12-25] MEDS ORDERED: Lisinopril 20 MG TAB PO SCH (09:00)
--- NOTE | 2018-12-26 05:45 | DIS ---
DATE OF ADMISSION: 12/24/2018 DATE OF DISCHARGE: 12/25/2018 DISCHARGE DIAGNOSES: 1. Sdp-OS-dlwxkpnix myocardial infarction. 2. Hypertension. 3. Hyperlipidemia. 4. Atrial fibrillation with rapid ventricular response. 5. Coronary artery disease, status post coronary artery bypass graft. CONSULT: Dr. Oglesby of Cardiology Service. FINAL DIAGNOSES: 1. Atrial fibrillation with rapid ventricular response, new onset, now back in sinus rhythm. 2. Boo-HQ-vlizlbrpd myocardial infarction. 3. Severe coronary artery disease, status post coronary artery bypass grafting and diffuse disease in his [place] vessels. HOSPITAL COURSE: The patient was a 53-year-old male who was admitted to the hospital with chest pain. Apparently, he has a past medical history of severe coronary artery disease and previous MIs along with hypertension, hyperlipidemia, and atrial fibrillation, who had been seen at an outside [facility] earlier yesterday for chest pain, was found to be in atrial fibrillation with RVR with heart rate in the 150s. He was started on IV nitroglycerin, Cardizem and sent to [facility] in [place] for further workup and management. However, en route, the patient became hypotensive, therefore was taking off the IV Cardizem and nitroglycerin. He was found to have converted to sinus rhythm and his chest pain and other symptoms resolved. He denied any fever, chills, headache, blurred vision, dizziness, further chest pain, palpitation, shortness of breath, abdominal pain, nausea, or vomiting. While in the emergency room, he had workup done, which showed troponins trending up 3.4, then 14.3 and 18.2. Later on, pmo lead, Dr. Oglesby, was consulted. Apparently, his previous cardiac catheterization which was done more than a year ago by Dr. Stewart showed extensive coronary artery disease. His LVEF was preserved at 55% to 60%. The patient was placed on Lovenox 1 mg/kg twice a day, got admitted to telemetry and echocardiogram was requested, but for unclear reason to me, the patient left against medical advice after he was seen by Dr. Oglesby last night. Job ID: [id number]
== END 2018-12-25 10:01 | disposition left against medical advice (07) | DRG 282 ==
LOC: ERS 10:57 → 2NO 12:15
PROVIDERS: ADMIT Internal Medicine; ATTEND Internal Medicine
DX: I48.91 Unspecified atrial fibrillation (principal); I21.4 Non-ST elevation (NSTEMI) myocardial infarction; E78.5 Hyperlipidemia, unspecified; F41.9 Anxiety disorder, unspecified; I25.10 Atherosclerotic heart disease of native coronary artery without angina pectoris; F32.9 Major depressive disorder, single episode, unspecified; I11.0 Hypertensive heart disease with heart failure; Z90.49 Acquired absence of other specified parts of digestive tract; I25.2 Old myocardial infarction; Z95.1 Presence of aortocoronary bypass graft; Z79.01 Long term (current) use of anticoagulants; Z95.5 Presence of coronary angioplasty implant and graft; I25.5 Ischemic cardiomyopathy
CPT/HCPCS: 36415; 80048; 82553; 85025; 93005; 96374; J1650; J2405; Q0162

== ENCOUNTER 2019-01-21 06:54 | Observation (INO) | payer SELFPAY ==
[2019-01-21] MEDS ORDERED: Ondansetron PF 4 MG/2 ML Vial IVP PRN ×2 (07:00→14:37)
[2019-01-21] MEDS ORDERED: Ondansetron ODT 4 MG TAB SL PRN (07:00)
[2019-01-21] MEDS ORDERED: Acetaminophen 325 MG TAB PO PRN ×2 (07:00→14:37)
[2019-01-21 07:48] LABS: Acetaminophen Less than 6.0 mcg/mL (10.0-30.0); Alcohol Less than 10 mg/dL (Less than 10); Salicylate Less than 8.0 mg/dL (15.0-30.0)
[2019-01-21 11:57] VITALS: BMI 20.1
[2019-01-21 12:26] LABS: Troponin I 0.334 ng/mL (< 0.028)
[2019-01-21] MEDS ORDERED: Senokot S 8.6-50 MG TAB PO PRN (14:37)
[2019-01-21] MEDS ORDERED: Bisacodyl 10 MG SUPP PR PRN (14:37)
[2019-01-21] MEDS ORDERED: Guaifenesin DM 100-10/5 ML UDCUP PO PRN (14:37)
[2019-01-21 14:41] LABS: Amphetamine Not Detected (NotDetected); Barbiturates Screen Not Detected (NotDetected); Benzodiazepine Screen Not Detected (NotDetected); Cocaine Metabolite Screen Not Detected (NotDetected); Medtox Control Line Valid? VALID (VALID); Medtox Reader # READER 1; Methadone Not Detected (NotDetected); Methamphetamine Not Detected (NotDetected); Opiate Screen Not Detected (NotDetected); Oxycodone Screen Not Detected (NotDetected); Phencyclidine (PCP) Not Detected (NotDetected); THC/Cannabinoid Screen Detected (NotDetected); Tricyclic Screen Not Detected (NotDetected)
[2019-01-21 15:28] LABS: Troponin I 0.384 ng/mL (< 0.028)
[2019-01-21] MEDS: hydrALAZINE 25 MG TAB PO SCH ×2 (15:55→22:10)
[2019-01-21] MEDS: Carvedilol 6.25 MG TAB PO SCH (15:56)
--- NOTE | 2019-01-21 16:46 | HP ---
REASON FOR ADMISSION: Chest pain with history of diffuse coronary artery disease. HISTORY OF PRESENT ILLNESS: The patient gives history of developing chest pain around 11 p.m. yesterday. He took sublingual nitroglycerin, got better. This chest pain was radiating to left upper extremity. The pain was 7 to 8/10 in the intensity. The patient slept for some time, but woke up around three in the morning again with chest pain. He took another tablet of nitroglycerin, but then that was the last tablet he had. The patient finally made it to [facility] from where he was transferred here. Currently, has no complaints of chest pain. Has no cough or expectoration. No fever at home. The patient sees Dr. Stewart and the last he saw her was almost a year back. PAST MEDICAL AND SURGICAL HISTORY: History of diffuse coronary artery disease in the past, CABG for 3-vessel disease with one of the graft occluded. He was hospitalized here in December and has had consultation with Dr. Oglesby as well. The patient had elevation of his troponin up to 14 during that admission. In view of diffuse coronary artery disease, no further catheterization was done during that admission. Hypertension, dyslipidemia, cholecystectomy, renal artery stenosis, prior history of cardiac stent x1, history of depression. CURRENT MEDICATIONS: The patient states he takes; 1. Aspirin 325 mg daily. 2. Plavix 75 mg p.o. daily. 3. Coreg 6.25 mg twice daily. 4. Lipitor 80 mg p.o. daily. 5. Clonidine 0.1 mg p.o. q.8 hourly. 6. Hydralazine 100 mg p.o. three times daily. 7. Zoloft 100 mg p.o. daily. 8. Lasix 20 mg daily. 9. Imdur extended release 120 mg twice daily. 10. Lisinopril 40 mg at bedtime. ALLERGIES: NO KNOWN DRUG ALLERGIES. PERSONAL HISTORY: The patient says he quit smoking 3 years ago. Quit drinking alcohol 6 years back and stopped abusing methamphetamine after he had his CABG. He is getting his divorce. FAMILY HISTORY: Father had malignancy, unknown. CODE STATUS: Full. REVIEW OF SYSTEMS: CONSTITUTIONAL: Negative for weight loss or gain, ability to conduct usual activities. SKIN: Negative for rash, itching. EYES: Negative for double vision, pain. ENT/MOUTH: Negative for nose bleeding, neck stiffness, pain, tenderness. CARDIOVASCULAR: Negative for palpitations, dyspnea on exertion, orthopnea. RESPIRATORY: Negative for shortness of breath, wheezing, cough, hemoptysis, fever or night sweats. GASTROINTESTINAL: Negative for poor appetite, abdominal pain, heartburn, nausea , vomiting, constipation, or diarrhea. GENITOURINARY: Negative for urgency, frequency, dysuria, nocturia. MUSCULOSKELETAL: Negative for pain, swelling. NEUROLOGIC/PSYCHIATRIC: Negative for anxiety, depression. ALLERGY/IMMUNOLOGIC: Negative for skin rash, bleeding tendency. PHYSICAL EXAMINATION: GENERAL: The patient is a 53-year-old male who is currently not in any acute distress. VITAL SIGNS: Blood pressure 160/80, pulse 56 per minute, respiratory rate 18 per minute, temperature 98.1 degrees Fahrenheit, saturating 100% on room air. NECK: Supple. No elevated JVD. HEENT: Eyes; extraocular muscles are intact. Pupils are reacting to light. Oral cavity, mucous membranes are moist. No exudates or congestion. CARDIOVASCULAR SYSTEM: S1 and S2 heard. Regular rhythm. RESPIRATORY SYSTEM: Air entry 1+ bilateral. No rales or rhonchi. ABDOMEN: Soft. Bowel sounds heard. No tenderness, rigidity, or guarding. EXTREMITIES: No peripheral edema or calf tenderness. VASCULAR SYSTEM: Peripheral pulses 2+ bilateral. No ischemic ulcers or gangrene. CENTRAL NERVOUS SYSTEM: No gross focal deficits noted. The patient is alert, awake, oriented well. PSYCHIATRIC SYSTEM: The patient's mood is euthymic. No hallucinations or delusions. LABORATORY DATA: Serum bicarb 21, BUN 22, creatinine 1.2, serum glucose 112. Liver enzymes within normal limits. Albumin is 3.4. Troponin I is indeterminate, peaking up to 0.33. H and H are 12 and 39, platelet count is 320, white count of 16 with 80% neutrophils. Urine drug screen is positive for marijuana. Plasma alcohol is less than 10. EKG done shows sinus rhythm at 90 beats per minute. There is RBBB seen. The QRS duration is 152 milliseconds, corrected QT is 486 milliseconds. CLINICAL IMPRESSION AND PLAN: The patient will be under observation on telemetry for chest pain with history of diffuse coronary artery disease for medical management in the past. He has had prior history of CABG with one of the grafts occluded. There was also suspicion of possible that the other two grafts being diseased. We will obtain consultation with Dr. Stewart if he needs further optimization of medications if any. The patient has no insurance and has limitations in affording expensive medications. We will continue him on aspirin , Lipitor, carvedilol, clonidine, Plavix, Lasix, hydralazine, Imdur, lisinopril as before. Echo with 2D Doppler for LV function will be obtained. We will obtain consultation with Dr. Stewart as I mentioned earlier. The code status was discussed with the patient and he wants to be a full code for now. Job ID: [id number] MTDD
--- NOTE | 2019-01-21 19:31 | CON ---
DATE OF CONSULTATION: REASON FOR CONSULTATION: Recurrent chest pain. PRIMARY CARE PHYSICIAN: Dr. Dena Hinson. PRIMARY CERTIFIED ALCOHOL DRUG COUNSELOR: Dr. Tanisha Stewart. HISTORY OF PRESENT ILLNESS: Mr. Justin is an unfortunate 53-year-old gentleman with history of CAD, status post bypass surgery. He underwent coronary angiography recently, was found to have severe diffuse underlying coronary artery disease, not amenable to percutaneous intervention or repeat bypass. He re-presented with recurrent chest pain. During my visit, his symptoms are much better and have resolved. PAST MEDICAL HISTORY: CAD, status post bypass surgery; hypertension; hyperlipidemia; cholecystectomy; renal artery stenosis; stent placement. HOME MEDICATIONS: Reviewed. ALLERGIES: NONE. REVIEW OF SYSTEMS: Ten-point review of systems reviewed, as above, otherwise negative. PHYSICAL EXAMINATION: GENERAL: He does appear older than stated age. VITAL SIGNS: Blood pressure 135/75, pulse 66, temperature 98.8. NEUROLOGIC: The patient is alert and oriented x3 with no focal neurologic deficits. HEENT: Sclerae without icterus. Mouth has moist mucous membranes with normal pallor. NECK: No JVD. Carotid upstroke brisk. No bruits bilaterally. LUNGS: Clear to auscultation with unlabored respirations. BACK: No scoliosis or kyphosis. CARDIAC: Regular rate and rhythm with normal S1 and S2. No S3 or S4 noted. No significant rubs, murmurs, thrills, or gallops noted throughout the precordium. PMI is not displaced. There is no parasternal heave. ABDOMEN: Soft, nontender, nondistended. No peritoneal signs present. No hepatosplenomegaly. No abnormal striae. EXTREMITIES: 2+ femoral and 2+ dorsalis pedis pulses. No cyanosis, clubbing, or edema. SKIN: No gross abnormalities. PERTINENT LABORATORY DATA: Peak troponin 0.3, hemoglobin 12.0. Creatinine 1.2. DIAGNOSTIC DATA: EKG shows normal sinus rhythm with ST-T wave changes suggesting ischemia. IMPRESSION: 1. Chest pressure. 2. Elevated troponin. 3. Severe coronary artery disease. RECOMMENDATIONS: At this point, I recommend continue medical therapy. Note from Dr. Stewart and Dr. Oglesby in the past shows that he is not amenable to percutaneous intervention. We would recommend continuing aspirin, atorvastatin, carvedilol, Plavix in addition to lisinopril and isosorbide. We will consider adding low-dose Xarelto. Otherwise, further recommendation per Dr. Tanisah Stewart in a.m. Job ID: [id number]
[2019-01-21] MEDS: Famotidine 20 MG TAB PO SCH (22:11)
[2019-01-21] MEDS: Atorvastatin Calcium 40 MG TAB PO SCH (22:11)
[2019-01-21] MEDS: cloNIDine 0.1 MG TAB PO SCH (22:12)
[2019-01-22 05:51] LABS: #Basophils 0.1 thou/uL (0.0-0.2); #Eosinphils 0.2 thou/uL (0.0-0.7); #Lymphocytes 3.1 thou/uL (1.20-3.40); #Monocytes 1.2 thou/uL (0.11-0.59); #Neutrophils 7.4 thou/uL (1.40-6.50); %Basophils 0.8 % (0.0-1.0); %Eosinophils 1.8 % (0.0-10.0); %Lymphocytes 26.2 % (21.0-51.0); %Monocytes 9.7 % (0.0-10.0); %Neutrophils 61.5 % (42.0-75.0); Hemoglobin 11.3 g/dL (14.0-18.0); Mean Corpuscular HGB CONC 33.6 g/dL (32.0-36.0); Mean Corpuscular Hemoglobin 33.1 pg (27.0-31.0); Mean Corpuscular Volume 98.4 fL (78.0-98.0); Mean Platelet Volume 8.5 fL (7.4-10.4); Platelet Count 275 thou/uL (130-400); RBC Distribution Width 13.7 % (11.5-14.5); Red Blood Cell (RBC) Count 3.43 mill/uL (4.70-6.10)
[2019-01-22] MEDS: cloNIDine 0.1 MG TAB PO SCH ×3 (06:02→21:12)
[2019-01-22 06:14] LABS: Anion Gap 9 mmol/L (10-20); BUN (Urea Nitrogen) 24 mg/dL (8.4-25.7); Calc. Creatinine Clearance 57 mL/min (70-130); Calcium 8.4 mg/dL (7.8-10.44); Carbon Dioxide 28 mmol/L (22-29); Cardiac Risk 5.6 (Less than 4.5); Chloride 108 mmol/L (98-107); Cholesterol 156 mg/dl (< 200 Desired); Estimated GFR-MDRD 59; Glucose 90 mg/dL (70-105); HDL Cholesterol 28 mg/dL (>60 Neg Risk); LDL Cholesterol, Calculated 102 mg/dL; Sodium 141 mmol/L (136-145); Triglycerides 129 mg/dL (Less than 150)
[2019-01-22] MEDS: Aspirin 325 mg Enteric Coated Tablet PO SCH (08:49)
[2019-01-22] MEDS: Carvedilol 6.25 MG TAB PO SCH ×2 (08:49→17:10)
[2019-01-22] MEDS: hydrALAZINE 25 MG TAB PO SCH ×3 (08:50→21:14)
[2019-01-22] MEDS: Famotidine 20 MG TAB PO SCH ×2 (08:50→21:13)
[2019-01-22] MEDS: Clopidogrel Bisulfate 75 MG TAB PO SCH (08:50)
[2019-01-22] MEDS: Lisinopril 20 MG TAB PO SCH (08:50)
[2019-01-22] MEDS: Furosemide 20 MG TAB PO SCH (08:50)
[2019-01-22] MEDS ORDERED: FLU VACC QS2019-20(6MOS UP)/PF 60 MCG/0.5 ML SYRINGE IM ONE (09:00)
--- NOTE | 2019-01-22 12:46 | PDOC.CPN ---
- Subjective Date: 01/22/19 Time: 08:30 Interval history: The pt seen and examined. No overnight events. He has 1 episode of chest heaviness around [id number]. No cardiac complaints for now. - Objective Allergies/Adverse Reactions: Allergies Allergy/AdvReac Type Severity Reaction Status Date / Time No Known Drug Allergies Allergy Verified 12/24/18 15:28 Visit Medications: Current Medications Acetaminophen (Tylenol) 650 mg PO Q4H PRN PRN Reason: Headache/Fever/Mild Pain (1-3) Aspirin (Ecotrin) 325 mg PO DAILY [facility] Last Admin: 01/22/19 08:49 Dose: 325 mg Atorvastatin Calcium (Lipitor) 80 mg PO HS [facility] Last Admin: 01/21/19 22:11 Dose: 80 mg Bisacodyl (Dulcolax) 10 mg [place] DAILYPRN PRN PRN Reason: Constipation Carvedilol (Coreg) 6.25 mg PO BID-[facility] Last Admin: 01/22/19 08:49 Dose: Not Given Clonidine (Catapres) 0.1 mg PO Q8HR [facility] Last Admin: 01/22/19 06:02 Dose: 0.1 mg Clopidogrel Bisulfate (Plavix) 75 mg PO DAILY [facility] Last Admin: 01/22/19 08:50 Dose: 75 mg Enoxaparin Sodium (Lovenox) 40 mg SC 0900 [facility] Famotidine (Pepcid) 20 mg PO BID [facility] Last Admin: 01/22/19 08:50 Dose: 20 mg Furosemide (Lasix) 40 mg PO DAILY [facility] Last Admin: 01/22/19 08:50 Dose: 40 mg Guaifenesin/Dextromethorphan (Robitussin Dm) 15 ml PO Q4H PRN PRN Reason: Cough Hydralazine HCl (Apresoline) 50 mg PO TID [facility] Last Admin: 01/22/19 08:50 Dose: 50 mg Isosorbide Mononitrate (Imdur) 120 mg PO BID [facility] Last Admin: 01/22/19 08:50 Dose: 120 mg Lisinopril (Zestril) 40 mg PO DAILY [facility] Last Admin: 01/22/19 08:50 Dose: 40 mg Ondansetron HCl (Zofran) 4 mg IVP Q6H PRN PRN Reason: Nausea/Vomiting Ranolazine (Ranexa) 500 mg PO BID [facility] Last Admin: 01/22/19 08:51 Dose: 500 mg Senna/Docusate Sodium (Senokot S) 2 tab PO BIDPRN PRN PRN Reason: Constipation Sertraline HCl (Zoloft) 150 mg PO DAILY [facility] Last Admin: 01/22/19 08:51 Dose: 150 mg Vital Signs & Weight: Vital Signs Temp Pulse Resp BP BP Pulse Ox 01/22/19 11:36 98.1 F 53 L 14 149/67 H 97 01/22/19 08:07 99 01/22/19 07:50 98.0 F 55 L 14 141/70 H 99 01/22/19 06:02 129/58 L 01/22/19 03:50 54 L 18 129/58 L 98 Weight 132 lb 8 oz - Physical Exam General: alert & oriented x3 HEENT: mucus membranes moist Neck: supple neck Cardiac: regular rate and rhythm, S1/S2 Lungs: clear to auscultation, decreased breath sounds Neuro: cranial nerve 2-12 intact Extremities: no cyanosis Skin: clear - Labs Result Diagrams: 01/22/19 05:35 01/22/19 05:35 Troponin/CKMB Troponin I 0.384 ng/mL (< 0.028) H* 01/21/19 14:49 - Telemetry Sinus rhythms and dysrhythmias: sinus rhythm - Assessment/Plan Assessment/Plan: 1. CAD with hx of CABG x3 in 05/2012 with JORDAN-LAD, SVG-Ramus, and SVG-PLMB; and s/p LHC in 07/2017 with 50% stenosis in SVG-RCA-PDA, 90% anastomosis in SVG- Ramus or Lt Cx with retrograde filling to bifurcated portion of vessel with EF 30-35%. - Asymptomatic; Not good candidate for cardiac intervention; On coreg, Lisinopril, Lipitor, Plavix, ASA, Imdur; Ranexa 500mg BID was started from yesterday; however, the pt may not afford the medication since the pt is uninsured 2. Prox Afib in 12/2018 - remains in SR; On Coreg and ASA 3. HTN - stable 4. HLD - on Statin 5. Tobacco abuse - smoking cessation education given to the pt. He says he hasn' t smoke for a couple monthe. He supposedly stopped prior to has last admission and hasn't smoked since. 6. Non-complaint of tx . Due to finances. 7. Illicit drug abuse, occasionally smokes marijuana. MAR reviewed Pt. seen and eval. by me. 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 I reviewed the cath films from 2017 and 2018. His coronary disease had progressed significantly. He has diffuse peripheral vasc. disease. On the last cath it was noted that the distal Aorta is completely occluded. The cardiac cath was performed via he arm and there was difficulty in accessing the vein grafts. The best option is medical management. fiil
[2019-01-22] MEDS: Enoxaparin Sodium 40 MG/0.4 ML SYRINGE SC SCH (14:34)
--- NOTE | 2019-01-22 19:54 | PDOC.HOSPP ---
- Subjective Encounter Date: 01/22/19 Encounter Time: 11:00 Subjective: no chest pain or sob is amb in hallway - Objective Vital Signs & Weight: Vital Signs (12 hours) Temp Pulse Resp BP Pulse Ox 01/22/19 19:15 98.5 F 51 L 14 148/67 H 97 01/22/19 15:34 98.6 F 54 L 12 168/77 H 98 01/22/19 11:36 98.1 F 53 L 14 149/67 H 97 01/22/19 08:07 99 Weight Weight 132 lb 8 oz I&O: 01/21/19 01/22/19 01/23/19 06:59 06:59 06:59 Intake Total 1520 Balance 1520 Result Diagrams: 01/22/19 05:35 01/22/19 05:35 Hospitalist ROS - Medication Medications: Active Medications Generic Name Dose Route Start Last Admin Trade Name Freq PRN Reason Stop Dose Admin Aspirin 325 mg 01/22/19 09:00 01/22/19 08:49 Ecotrin PO 325 mg DAILY [facility] Administration Atorvastatin Calcium 80 mg 01/21/19 21:00 01/21/19 22:11 Lipitor PO 80 mg HS [facility] Administration Carvedilol 6.25 mg 01/21/19 17:00 01/22/19 17:10 Coreg PO Not Given BID-WM [facility] Clonidine 0.1 mg 01/21/19 22:00 01/22/19 14:34 Catapres PO 0.1 mg Q8HR [facility] Administration Clopidogrel Bisulfate 75 mg 01/22/19 09:00 01/22/19 08:50 Plavix PO 75 mg DAILY [facility] Administration Enoxaparin Sodium 40 mg 01/22/19 09:00 01/22/19 14:34 Lovenox SC 40 mg 0900 [facility] Administration Famotidine 20 mg 01/21/19 21:00 01/22/19 08:50 Pepcid PO 20 mg BID [facility] Administration Furosemide 40 mg 01/22/19 09:00 01/22/19 08:50 Lasix PO 40 mg DAILY [facility] Administration Hydralazine HCl 50 mg 01/21/19 15:00 01/22/19 14:34 Apresoline PO 50 mg TID [facility] Administration Isosorbide Mononitrate 120 mg 01/21/19 21:00 01/22/19 08:50 Imdur PO 120 mg BID [facility] Administration Lisinopril 40 mg 01/22/19 09:00 01/22/19 08:50 Zestril PO 40 mg DAILY [facility] Administration Ranolazine 500 mg 01/21/19 21:00 01/22/19 08:51 Ranexa PO 500 mg BID [facility] Administration Sertraline HCl 150 mg 01/22/19 09:00 01/22/19 08:51 Zoloft PO 150 mg DAILY [facility] Administration - Exam General Appearance: NAD, awake alert Eye: PERRL, anicteric sclera ENT: no oropharyngeal lesions, moist mucosa Neck: supple, no JVD Heart: RRR, no murmur Respiratory: no wheezes, no rales Gastrointestinal: soft, non-tender, non-distended, normal bowel sounds Extremities: no cyanosis, no edema Neurological: cranial nerve grossly intact, no focal deficits Psychiatric: normal affect, A&O x 3 Hosp A/P (1) Chest pain Code(s): R07.9 - CHEST PAIN, UNSPECIFIED Status: Acute Qualifiers: Chest pain type: precordial pain Qualified Code(s): R07.2 - Precordial pain (2) Tobacco abuse Code(s): Z72.0 - TOBACCO USE Status: Chronic (3) CAD (coronary artery disease) Code(s): I25.10 - ATHSCL HEART DISEASE OF [place] CORONARY ARTERY W/O ANG PCTRS Status: Chronic Qualifiers: Coronary Disease-Associated Artery/Lesion type: bypass graft [place] vs. transplanted heart: [place] heart Associated angina: with stable angina Qualified Code(s): I25.708 - Atherosclerosis of coronary artery bypass graft(s) , unspecified, with other forms of angina pectoris (4) Dyslipidemia Code(s): E78.5 - HYPERLIPIDEMIA, UNSPECIFIED Status: Chronic (5) GERD (gastroesophageal reflux disease) Code(s): K21.9 - GASTRO-ESOPHAGEAL REFLUX DISEASE WITHOUT ESOPHAGITIS Status: Chronic Qualifiers: Esophagitis presence: without esophagitis Qualified Code(s): K21.9 - Gastro -esophageal reflux disease without esophagitis (6) HTN (hypertension) Code(s): I10 - ESSENTIAL (PRIMARY) HYPERTENSION Status: Chronic Qualifiers: Hypertension type: essential hypertension Qualified Code(s): I10 - Essential (primary) hypertension - Plan has h/o inoperable cad due to diffuse disease and poor targets for redo per cardio is getting maximised on meds he is currently paying around <100$/month for his meds and says he can afford that. dc plan per cardio adv hemostable
[2019-01-22] MEDS ORDERED: Temazepam 15 MG CAP PO PRN (20:34)
[2019-01-22] MEDS: Atorvastatin Calcium 40 MG TAB PO SCH (21:13)
[2019-01-23] MEDS: cloNIDine 0.1 MG TAB PO SCH (05:50)
--- NOTE | 2019-01-23 08:21 | PDOC.CPN ---
- Subjective Date: 01/23/19 Time: 08:28 Interval history: The pt seen and examined. No overnight events. No cardiac complaints. Coreg has been held since yesterday for HR 40-50s. The pt has walked without cardiac complaints. - Objective Allergies/Adverse Reactions: Allergies Allergy/AdvReac Type Severity Reaction Status Date / Time No Known Drug Allergies Allergy Verified 12/24/18 15:28 Visit Medications: Current Medications Acetaminophen (Tylenol) 650 mg PO Q4H PRN PRN Reason: Headache/Fever/Mild Pain (1-3) Amlodipine Besylate (Norvasc) 5 mg PO DAILY [facility] Aspirin (Ecotrin) 325 mg PO DAILY [facility] Last Admin: 01/22/19 08:49 Dose: 325 mg Atorvastatin Calcium (Lipitor) 80 mg PO HS [facility] Last Admin: 01/22/19 21:13 Dose: 80 mg Bisacodyl (Dulcolax) 10 mg [place] DAILYPRN PRN PRN Reason: Constipation Carvedilol (Coreg) 6.25 mg PO BID-[facility] Last Admin: 01/22/19 17:10 Dose: Not Given Clonidine (Catapres) 0.1 mg PO Q8HR [facility] Last Admin: 01/23/19 05:50 Dose: 0.1 mg Clopidogrel Bisulfate (Plavix) 75 mg PO DAILY [facility] Last Admin: 01/22/19 08:50 Dose: 75 mg Enoxaparin Sodium (Lovenox) 40 mg SC 0900 [facility] Last Admin: 01/22/19 14:34 Dose: 40 mg Famotidine (Pepcid) 20 mg PO BID [facility] Last Admin: 01/22/19 21:13 Dose: 20 mg Furosemide (Lasix) 40 mg PO DAILY [facility] Last Admin: 01/22/19 08:50 Dose: 40 mg Guaifenesin/Dextromethorphan (Robitussin Dm) 15 ml PO Q4H PRN PRN Reason: Cough Hydralazine HCl (Apresoline) 50 mg PO TID [facility] Last Admin: 01/22/19 21:14 Dose: 50 mg Isosorbide Mononitrate (Imdur) 120 mg PO BID [facility] Last Admin: 01/22/19 21:13 Dose: 120 mg Lisinopril (Zestril) 40 mg PO DAILY [facility] Last Admin: 01/22/19 08:50 Dose: 40 mg Ondansetron HCl (Zofran) 4 mg IVP Q6H PRN PRN Reason: Nausea/Vomiting Ranolazine (Ranexa) 500 mg PO BID [facility] Last Admin: 01/22/19 21:13 Dose: 500 mg Senna/Docusate Sodium (Senokot S) 2 tab PO BIDPRN PRN PRN Reason: Constipation Sertraline HCl (Zoloft) 150 mg PO DAILY [facility] Last Admin: 01/22/19 08:51 Dose: 150 mg Temazepam (Restoril) 15 mg PO HS PRN PRN Reason: Insomnia Last Admin: 01/22/19 21:14 Dose: 15 mg Vital Signs & Weight: Vital Signs Temp Pulse Resp BP BP Pulse Ox 01/23/19 07:20 98.6 F 54 L 14 166/75 H 97 01/23/19 05:50 126/65 01/23/19 04:25 61 18 126/65 99 01/22/19 21:14 51 L 148/67 H 01/22/19 21:12 148/67 H Weight 132 lb 8 oz - Physical Exam General: alert & oriented x3 HEENT: mucus membranes moist Neck: supple neck Cardiac: regular rate and rhythm, S1/S2 Lungs: clear to auscultation, decreased breath sounds Abdomen: unremarkable Extremities: no cyanosis Skin: clear Musculoskeletal: normal range of motion - Labs Result Diagrams: 01/22/19 05:35 01/22/19 05:35 Troponin/CKMB Troponin I 0.384 ng/mL (< 0.028) H* 01/21/19 14:49 - Telemetry Sinus rhythms and dysrhythmias: sinus bradycardia (< 50 bpm) - Assessment/Plan Assessment/Plan: 1. CAD with hx of CABG x3 in 05/2012 with JORDAN-LAD, SVG-Ramus, and SVG-PLMB; and s/p LHC in 07/2017 with 50% stenosis in SVG-RCA-PDA, 90% anastomosis in SVG- Ramus or Lt Cx with retrograde filling to bifurcated portion of vessel with EF 30-35%. - Asymptomatic; Not good candidate for cardiac intervention; On Lisinopril, Lipitor, Plavix, ASA, Imdur; Ranexa 500mg BID was started from yesterday; however, the pt may not afford the medication since the pt is uninsured; Holding Coreg due to bradycardia with HR 40-50s. 2. Prox Afib in 12/2018 - remains in SR; On Coreg and ASA 3. HTN - will start Norvasc 5mg qd from today 4. HLD - on Statin 5. Tobacco abuse - smoking cessation education given to the pt. He says he hasn' t smoke for a couple monthe. He supposedly stopped prior to has last admission and hasn't smoked since. 6. Non-complaint of tx . Due to finances. 7. Illicit drug abuse, occasionally smokes marijuana. MAR reviewed * Echo on 01/22/2019 with EF 50-55%, grade I dd, mod dilated LA, mild MR and TR , borderline LVH * His coronary disease had progressed significantly. He has diffuse peripheral vasc. disease. On the last cath it was noted that the distal Aorta is completely occluded. The cardiac cath was performed via he arm and there was difficulty in accessing the vein grafts. The best option is medical management. * From Cardiac standpoint, the pt is stable to d/c home if he is asymptomatic with bradycardia and stable BP after Norvasc is given.
[2019-01-23] MEDS ORDERED: Amlodipine 5 MG TAB PO SCH (09:00)
[2019-01-23] MEDS: Carvedilol 6.25 MG TAB PO SCH (09:25)
[2019-01-23] MEDS: Aspirin 325 mg Enteric Coated Tablet PO SCH (09:26)
[2019-01-23] MEDS: Clopidogrel Bisulfate 75 MG TAB PO SCH (09:26)
[2019-01-23] MEDS: Lisinopril 20 MG TAB PO SCH (09:27)
[2019-01-23] MEDS: Enoxaparin Sodium 40 MG/0.4 ML SYRINGE SC SCH (09:27)
[2019-01-23] MEDS: Furosemide 20 MG TAB PO SCH (09:27)
[2019-01-23] MEDS: hydrALAZINE 25 MG TAB PO SCH (09:27)
[2019-01-23] MEDS: Famotidine 20 MG TAB PO SCH (09:27)
[2019-01-23 12:04] VITALS: BP 161/75; TEMP 98.5
--- NOTE | 2019-01-25 15:58 | DIS ---
DATE OF ADMISSION: 01/21/2019 DATE OF DISCHARGE: 01/23/2019 DISCHARGE DISPOSITION: To home. PRIMARY DISCHARGE DIAGNOSES: Chest pain with inoperable coronary artery disease (diffuse disease), history of coronary artery bypass grafting, prior stent to coronary artery disease, ongoing tobacco abuse, dyslipidemia, hypertension, gastroesophageal reflux disease. PROCEDURES DONE DURING HOSPITALIZATION: Echo with 2D Doppler showed EF of 50% to 55%. H and H 11 and 33, platelet count 275, MCV 98. Troponin I indeterminate peaking up to 0.3. BUN 24, creatinine 1.2. LDL 102, triglycerides 129, total cholesterol 156. Urine drug screen was positive for cannabinoids. Plasma alcohol less than 10. INPATIENT CONSULT: Dr. Calixto/Pat for Cardiology. DISCHARGE MEDICATIONS: 1. Norvasc 5 mg daily. 2. Aspirin 81 mg p.o. daily. 3. Plavix 75 mg p.o. daily. 4. Coreg 6.25 mg p.o. twice daily. 5. Lipitor 80 mg p.o. at bedtime. 6. Clonidine 0.1 mg three times daily. 7. Lasix 40 mg daily. 8. Hydralazine 50 mg three times daily. 9. Imdur extended release 120 mg twice daily. 10. Lisinopril 40 mg daily. 11. Ranexa 500 twice daily. 12. Sertraline 50 mg p.o. daily. ALLERGIES: NO KNOWN DRUG ALLERGIES. DISCHARGE PLAN: The patient to follow up with Dr. Jasper Barton, his primary care physician in [address] Stewart in 2 to 3 weeks. BRIEF COURSE DURING HOSPITALIZATION: The patient initially got admitted on the with complaints of chest pain, which was getting resolved with nitroglycerin. He has known history of coronary artery disease with prior CABG with one of his grafts occluded. He has had diffuse coronary artery disease with no redo targets. In view of this history, the patient was hospitalized and has had serial troponin done. The troponins peaked up to 0.3. His chest pain completely resolved during his stay here. He was optimized on his medications. He has had consultation with Dr. Stewart for Cardiology. Echo showed normal ejection fraction. He is ambulating and eating well. He was counseled with regarding tobacco and marijuana use cessation. Please note, I have seen and examined the patient on the day of discharge. Job ID: [id number] [facility]
== END 2019-01-23 12:16 | disposition home or self-care (01) ==
LOC: ERS 06:54 → 2SW 11:09
PROVIDERS: ADMIT Internal Medicine; ATTEND Internal Medicine
DX: R07.2 Precordial pain (principal); I25.708 Atherosclerosis of coronary artery bypass graft(s), unspecified, with other forms of angina pectoris; I11.0 Hypertensive heart disease with heart failure; I50.9 Heart failure, unspecified; E78.00 Pure hypercholesterolemia, unspecified; E78.5 Hyperlipidemia, unspecified; I25.2 Old myocardial infarction; I48.91 Unspecified atrial fibrillation; K21.9 Gastro-esophageal reflux disease without esophagitis; Z79.82 Long term (current) use of aspirin; Z79.899 Other long term (current) drug therapy; Z87.891 Personal history of nicotine dependence; Z91.19 Patient's noncompliance with other medical treatment and regimen
CPT/HCPCS: 36415; 80048; 80061; 80306; 80307; 85025; 90471; 90686; 93005; 93306; 94760; 96372; G0008; G0378; J1650

== ENCOUNTER 2019-04-09 10:34 | Inpatient (IN) | payer SELFPAY ==
[2019-04-09] MEDS ORDERED: Ondansetron PF 4 MG/2 ML Vial IVP PRN (12:03)
[2019-04-09] MEDS ORDERED: Bisacodyl 5 MG TAB PO PRN (12:03)
[2019-04-09 12:31] LABS: #Basophils 0.1 thou/uL (0.0-0.2); #Eosinphils 0.1 thou/uL (0.0-0.7); #Lymphocytes 2.6 thou/uL (1.20-3.40); #Monocytes 1.1 thou/uL (0.11-0.59); #Neutrophils 11.4 thou/uL (1.40-6.50); %Basophils 0.6 % (0.0-1.0); %Eosinophils 0.8 % (0.0-10.0); %Lymphocytes 17.1 % (21.0-51.0); %Monocytes 6.9 % (0.0-10.0); %Neutrophils 74.5 % (42.0-75.0); Hemoglobin 12.3 g/dL (14.0-18.0); Mean Corpuscular HGB CONC 33.2 g/dL (32.0-36.0); Mean Corpuscular Hemoglobin 32.7 pg (27.0-31.0); Mean Corpuscular Volume 98.5 fL (78.0-98.0); Mean Platelet Volume 9.5 fL (7.4-10.4); Platelet Count 234 thou/uL (130-400); RBC Distribution Width 13.3 % (11.5-14.5); Red Blood Cell (RBC) Count 3.76 mill/uL (4.70-6.10); White Blood Cell (WBC) Count 15.2 thou/uL (4.8-10.8)
[2019-04-09 13:01] LABS: ALT (SGPT) 7 U/L (8-55); AST (SGOT) 10 U/L (5-34); Albumin 3.5 g/dL (3.5-5.0); Alkaline Phosphatase 110 U/L (40-110); Anion Gap 12 mmol/L (10-20); BUN (Urea Nitrogen) 23 mg/dL (8.4-25.7); Bilirubin, Total 0.3 mg/dL (0.2-1.2); Calc. Creatinine Clearance 0 mL/min (70-130); Calcium 8.9 mg/dL (7.8-10.44); Carbon Dioxide 26 mmol/L (22-29); Cardiac Risk 3.1 (Less than 4.5); Chloride 104 mmol/L (98-107); Cholesterol 129 mg/dl (< 200 Desired); Estimated GFR-MDRD 70; Globulin 2.8 g/dL (2.4-3.5); Glucose 83 mg/dL (70-105); HDL Cholesterol 42 mg/dL (>60 Neg Risk); LDL Cholesterol, Calculated 76 mg/dL; Potassium 3.5 mmol/L (3.5-5.1); Protein, Total 6.3 g/dL (6.0-8.3); Sodium 138 mmol/L (136-145); Triglycerides 53 mg/dL (Less than 150)
[2019-04-09 13:31] LABS: CKMB 4.3 ng/mL (0-6.6)
[2019-04-09] MEDS ORDERED: Nitroglycerin 0.4 MG TAB (25 Tab Bottle) SL PRN (13:56)
[2019-04-09] MEDS ORDERED: Temazepam 15 MG CAP PO PRN (13:56)
[2019-04-09 15:51] VITALS: BMI 19.2
[2019-04-09] MEDS: cloNIDine 0.1 MG TAB PO SCH ×2 (16:26→21:00)
[2019-04-09 18:04] LABS: Troponin I 2.004 ng/mL (< 0.028)
--- NOTE | 2019-04-09 18:50 | HP ---
CHIEF COMPLAINT: Chest pain. HISTORY OF PRESENT ILLNESS: A 53-year-old male with significant coronary artery disease, status post stent placement x4 and CABG 3-vessel in 2012, presenting with angina. He woke up this morning around 7, took all his medications including aspirin, Plavix, Ranexa, Coreg, and Imdur. Had his breakfast, went back to bed. Woke up shortly after that with chest pain, severe crampy in nature, headache, dizziness, as well as blurriness, shaking, short of breath as well as diaphoresis, on 12/18 in severity with radiating to the left arm and the neck. Similar pain episodes when he had NC in the past. This was his eighth visit to the ER as far as coronary artery disease is concerned. He went to the [facility]. From there, he was transferred here. He had elevated troponin of 1.4. EKG without acute ST-T wave changes, but Q waves in the inferior leads. I updated his cnc machine setter to Dr. Stewart. Admitting in the telemetry for further care. REVIEW OF SYSTEMS: The patient has no fevers, night sweats, or chills. No productive cough. No nausea, vomiting, abdominal pain, constipation, diarrhea, hematuria, dysuria, or hematochezia. Denies tingling or numbness in his extremities other than headache and blurriness as well as pain radiating to his left arm. No polyuria or polydipsia. No rash. Denies any musculoskeletal tenderness. ALLERGIES: HE HAS NO KNOWN DRUG ALLERGIES. PAST MEDICAL HISTORY: Hypertension; hyperlipidemia; coronary artery disease, status post CABG 3-vessel in 2012, preceded by stent; PCI x4. MEDICATIONS: 1. Zoloft 150 mg daily. 2. Amlodipine 5 mg daily. 3. Aspirin 81 mg daily. 4. Lipitor 80 mg at bedtime. 5. Coreg 6.25 mg twice a day. 6. Clonidine 0.1 mg 3 times a day. 7. Plavix 75 mg daily. 8. Lasix 40 mg daily. 9. Hydralazine 50 mg 3 times a day. 10. Isosorbide mononitrate 120 mg daily. 11. Lisinopril 40 mg daily. 12. Nitroglycerin 0.4 as needed for chest pain. 13. Ranexa 500 mg twice a day. 14. Temazepam 15 mg at bedtime. SOCIAL HISTORY: The patient smokes a pack a day. Does not drink alcohol. FAMILY HISTORY: Significant for coronary artery disease. PHYSICAL EXAMINATION: VITAL SIGNS: He is afebrile. Vital signs at this facility is still pending. GENERAL: The patient is not in any acute distress. He is resting comfortably. Nontoxic looking. HEENT: Pupils are equal, round, and reactive to light. Anicteric. Mucous membranes moist. CARDIOVASCULAR: Regular rate and rhythm. He has a 3/6 systolic ejection murmur. No rubs or gallops. LUNGS: Clear to auscultation bilaterally with no wheezing, rales, or rhonchi. ABDOMEN: Soft, nontender, nondistended. Good bowel sounds. EXTREMITIES: Without any pitting edema. NEUROLOGIC: No focal deficits. SKIN: Intact. PSYCHIATRIC: Appropriate mood and affect. LABORATORY DATA: His troponin initially 1.4, repeat is 1.55. CK-MB 4.3. TSH 1.7. LDL 76. His CMP panel in the normal range. His CBC showed WBC of 15.2. EKG showed no acute ST-T wave changes, Q waves in the inferior lead. Chest x-ray, negative for infiltrate. IMPRESSION: A 53-year-old male with significant coronary artery disease presenting with angina. 1. Non-ST elevation myocardial infarction. 2. Leukocytosis. 3. Anemia of chronic disease. 4. Tobacco abuse. PLAN: 1. The patient is admitted in the telemetry monitoring. Serial troponin one more set. 2. Continue with his cardiac medications including isosorbide mononitrate, Ranexa, Coreg, as well as aspirin, Plavix, and statin. 3. Hypertension. Titrate those above medications with holding parameters as he is on several of them including clonidine. 4. Anemia of chronic disease. No intervention. 5. I talked to Dr. Stewart and he would likely see him. Risk stratifications to the A1c and lipid panel. His LDL level is 76 within the target. We will continue with his home regimen of Lipitor. 6. Leukocytosis. Probably stress induced. As he does not look infectious, but we will monitor the trend. Rest of the management per cardiology input as well as clinical course. 7. DVT prophylaxis with Lovenox twice a day. Job ID: [id number]
--- NOTE | 2019-04-09 19:54 | CON ---
DATE OF CONSULTATION: 04/09/2019 REASON FOR CONSULTATION: Non-STEMI. PRIMARY BROACHING MACHINE SET UP OPERATOR: Tanisha Stewart MD. HISTORY OF PRESENT ILLNESS: Mr. Justin is a very pleasant 53-year-old white gentleman, who comes to the hospital for evaluation of chest pain. He has a history of severe coronary artery disease status post CABG in 2011. Last heart catheterization was in 2018 and he was deemed to be a poor candidate for any type of revascularization, given severe diffuse disease. He comes in for an episode of chest pain that has since resolved. His troponin has been slowly coming up. On my evaluation, his chest pain is completely gone. He denies any tightness or pressure. No shortness of breath. He feels comfortable again. PAST MEDICAL HISTORY: 1. Coronary artery disease as above. 2. Status post CABG in 2011. 3. Hypertension. 4. Hyperlipidemia. PAST SURGICAL HISTORY: 1. Cholecystectomy. 2. CABG. 3. Renal artery stenosis status post stent placement. OUTPATIENT MEDICATIONS: 1. Ranolazine 500 mg b.i.d. 2. Nitroglycerin sublingual p.r.n. 3. Lisinopril 40 mg a day. 4. Isosorbide mononitrate 120 mg a day. 5. Furosemide 40 mg a day. 6. Plavix 75 mg a day. 7. Carvedilol 6.25 b.i.d. 8. Atorvastatin 80 mg at bedtime. 9. Aspirin 81 a day. 10. Hydralazine 50 mg t.i.d. 11. Clonidine 0.1 p.o. t.i.d. 12. Temazepam 50 mg at bedtime. 13. Sertraline 150 mg a day. 14. Amlodipine 5 mg a day. ALLERGIES: NO KNOWN DRUG ALLERGIES. SOCIAL HISTORY: Continues to smoke a pack a day. No alcohol or drugs. FAMILY HISTORY: Positive for early coronary artery disease. REVIEW OF SYSTEMS: A 12-point review of systems was done and was all negative unless stated in the history of present illness. PHYSICAL EXAMINATION: VITAL SIGNS: Temperature 98.2, pulse 63, respiratory rate 16, saturating 100% on room air, and blood pressure 155/72. GENERAL: Awake, alert, oriented x3, in no distress. HEENT: Normocephalic and atraumatic. NECK: Supple. LUNGS: Clear. CARDIOVASCULAR: S1, S2. No S3 or S4. No murmurs. ABDOMEN: Soft. Positive bowel sounds. EXTREMITIES: No edema. SKIN: Warm and dry. LABORATORY DATA: Laboratory work was reviewed. White count of 15, hemoglobin 12, hematocrit 37, platelet count 234. Chemistries; sodium of 138, potassium is 3.5 , chloride of 104, carbon dioxide of 26, anion gap of 12, BUN 23, creatinine 1.1. Troponin went from 1.4 to 1.5 and then 1.7 and now to 2.0. Normal TSH. LDL of 76, HDL 42, triglycerides of 53, cholesterol total 129. Chest x-ray showed no acute cardiopulmonary abnormality. Most recent echocardiogram was done in January 2019 showed an EF of 50% to 55% and diastolic dysfunction grade 1/3. Mild MR. ASSESSMENT/PLAN: 1. Wly-RC-[id number] myocardial infarction. 2. Known coronary artery disease. 3. Elevated white count. 4. Tobacco use. PLAN: 1. I reviewed the films, Portillo to LAD was patent and looks like it had to be engaged by accessing left radial artery. There was a graft lesion about 50% to the RCA in 2018, there was also an anastomotic lesion in the graft to a large OM with severe disease in douglas OM just before anastomosis with graft which is not amenable to revascularization by stents. My only concern would be the RCA graft but would expect his troponin to be much higher. Currently, he is chest pain free. His troponin is only up to 2. We would continue to treat medically for now. Full anticoagulation for 48 hours for medical therapy of non-STEMI. Will leave NPO past midnight in case he has more chest pain or decision is made to do intervention tomorrow. 2. Dual anti-platelet therapy for a minimum of 1 year from this date on. He is already taking Plavix chronically. 3. If he continues to have chest pain, may consider re-evaluation with heart catheterization; however, at this point, he is chest pain free and feeling comfortable. 4. Repeat echocardiogram in the setting of a new event. Thank you for letting us to participate in care of your patient. Dr. Stewart, his primary radar mechanic will follow up in the morning. Job ID: [id number] [facility]
[2019-04-09] MEDS ORDERED: Atorvastatin Calcium 40 MG TAB PO SCH (21:00)
[2019-04-09] MEDS: hydrALAZINE 25 MG TAB PO SCH (21:00)
[2019-04-09] MEDS: Enoxaparin Sodium 60 MG/0.6 ML SYRINGE SC SCH (21:01)
[2019-04-09] MEDS: Carvedilol 6.25 MG TAB PO SCH (21:01)
[2019-04-10] MEDS ORDERED: Sodium Chloride 0.9% 10 ML ONE (07:57)
[2019-04-10] MEDS: Enoxaparin Sodium 60 MG/0.6 ML SYRINGE SC SCH (08:21)
[2019-04-10] MEDS: Carvedilol 6.25 MG TAB PO SCH (08:22)
[2019-04-10] MEDS: hydrALAZINE 25 MG TAB PO SCH ×2 (08:22→15:30)
[2019-04-10] MEDS: cloNIDine 0.1 MG TAB PO SCH ×2 (08:23→15:31)
[2019-04-10] MEDS ORDERED: Lisinopril 20 MG TAB PO SCH (09:00)
[2019-04-10] MEDS ORDERED: Furosemide 20 MG TAB PO SCH (09:00)
[2019-04-10] MEDS ORDERED: Clopidogrel Bisulfate 75 MG TAB PO SCH (09:00)
[2019-04-10] MEDS ORDERED: Aspirin Chewable 81 MG TAB PO SCH (09:00)
[2019-04-10] MEDS ORDERED: Enoxaparin Sodium 40 MG/0.4 ML SYRINGE SC SCH (09:00)
[2019-04-10 09:37] LABS: #Basophils 0.1 thou/uL (0.0-0.2); #Eosinphils 0.1 thou/uL (0.0-0.7); #Lymphocytes 2.1 thou/uL (1.20-3.40); #Monocytes 0.8 thou/uL (0.11-0.59); %Basophils 0.9 % (0.0-1.0); %Eosinophils 1.1 % (0.0-10.0); %Lymphocytes 18.8 % (21.0-51.0); %Monocytes 7.6 % (0.0-10.0); %Neutrophils 71.6 % (42.0-75.0); Hemoglobin 11.8 g/dL (14.0-18.0); Mean Corpuscular HGB CONC 32.7 g/dL (32.0-36.0); Mean Corpuscular Hemoglobin 32.1 pg (27.0-31.0); Mean Corpuscular Volume 98.2 fL (78.0-98.0); Platelet Count 225 thou/uL (130-400); RBC Distribution Width 13.3 % (11.5-14.5); Red Blood Cell (RBC) Count 3.67 mill/uL (4.70-6.10); White Blood Cell (WBC) Count 11.1 thou/uL (4.8-10.8)
[2019-04-10 09:50] LABS: Anion Gap 15 mmol/L (10-20); BUN (Urea Nitrogen) 23 mg/dL (8.4-25.7); Calc. Creatinine Clearance 69 mL/min (70-130); Calcium 8.7 mg/dL (7.8-10.44); Carbon Dioxide 24 mmol/L (22-29); Chloride 103 mmol/L (98-107); Estimated GFR-MDRD 75; Glucose 93 mg/dL (70-105); Potassium 3.7 mmol/L (3.5-5.1); Sodium 138 mmol/L (136-145)
[2019-04-10 09:59] LABS: Troponin I 1.755 ng/mL (< 0.028)
--- NOTE | 2019-04-10 10:54 | PDOC.CPN ---
- Subjective Date: 04/10/19 Time: 08:30 Interval history: The pt seen and examined. No overnight events. No cardiac complaints. He reported that he has been taking Lasix 20mg qd instead of 40mg qd. After he received Lasix IV at ER, he has voided 4 L. - Objective Allergies/Adverse Reactions: Allergies Allergy/AdvReac Type Severity Reaction Status Date / Time No Known Drug Allergies Allergy Verified 04/09/19 15:51 Visit Medications: Current Medications Aspirin (Aspirin Chewable) 81 mg PO DAILY [facility] Last Admin: 04/10/19 08:22 Dose: 81 mg Atorvastatin Calcium (Lipitor) 80 mg PO HS [facility] Last Admin: 04/09/19 21:01 Dose: 80 mg Bisacodyl (Dulcolax) 10 mg PO DAILYPRN PRN PRN Reason: Constipation Carvedilol (Coreg) 6.25 mg PO BID [facility] Last Admin: 04/10/19 08:22 Dose: 6.25 mg Clonidine (Catapres) 0.1 mg PO TID [facility] Last Admin: 04/10/19 08:23 Dose: 0.1 mg Clopidogrel Bisulfate (Plavix) 75 mg PO DAILY [facility] Last Admin: 04/10/19 08:23 Dose: 75 mg Enoxaparin Sodium (Lovenox) 60 mg SC 0900,2100 [facility] Last Admin: 04/10/19 08:21 Dose: 60 mg Furosemide (Lasix) 40 mg PO DAILY [facility] Last Admin: 04/10/19 08:22 Dose: 40 mg Hydralazine HCl (Apresoline) 50 mg PO TID [facility] Last Admin: 04/10/19 08:22 Dose: 50 mg Isosorbide Mononitrate (Imdur) 120 mg PO BID [facility] Last Admin: 04/10/19 08:22 Dose: 120 mg Lisinopril (Zestril) 40 mg PO DAILY [facility] Last Admin: 04/10/19 08:22 Dose: 40 mg Nitroglycerin (Nitrostat) 0.4 mg SL Q5MIN PRN PRN Reason: Chest Pain Ondansetron HCl (Zofran) 4 mg IVP Q6H PRN PRN Reason: Nausea/Vomiting Ranolazine (Ranexa) 500 mg PO BID [facility] Last Admin: 04/10/19 08:22 Dose: 500 mg Sertraline HCl (Zoloft) 150 mg PO DAILY [facility] Last Admin: 04/10/19 08:22 Dose: 150 mg Temazepam (Restoril) 15 mg PO HSPRN PRN PRN Reason: Insomnia Vital Signs & Weight: Vital Signs Temp Pulse Resp BP Pulse Ox 04/10/19 07:15 98 F 59 L 18 144/67 H 98 04/10/19 03:55 98.5 F 60 18 110/63 97 Weight 130 lb 1.6 oz - Physical Exam General: alert & oriented x3 HEENT: mucus membranes moist Neck: supple neck Cardiac: regular rate and rhythm, S1/S2 Lungs: clear to auscultation, decreased breath sounds Neuro: cranial nerve 2-12 intact - Labs Result Diagrams: 04/10/19 09:26 04/10/19 09:26 Troponin/CKMB CK-MB (CK-2) 4.3 ng/mL (0-6.6) 04/09/19 12:18 Troponin I 1.755 ng/mL (< 0.028) H* 04/10/19 09:26 - Telemetry Sinus rhythms and dysrhythmias: sinus rhythm - Assessment/Plan Assessment/Plan: 1. NSTEMI - Trop trend down to 1.7 from 2 yesterday; The pt is asymptomatic. On Lovenox BID, Plavix, ASA, Isosorbide, and Ranexa 2. Acute on Chronic Diastolic HF - Per the pt, he has been on Lasix 20mg qd instead of 40mg qd (The prescription of Lasix 20mg qd PRN was in 10/2018 and Lasix 40mg qd was in 01/2019); On Lasix 40mg qd, Coreg, and Lisinopril 3. CAD with hx of LHC in 07/2017 with 50% stenosis in SVG-RCA-PDA, 90% anastomosis in SVG-Ramus or Lt Cx with retrograde filling to bifurcated portion of vessel with EF 30-35% - stable now; coreg, ASA, Lisinopril,Statin, and Plavix 3. HTN - stable 4. Prox Afib in 12/2018 - remains in SR; on Coreg and ASA 5. HLD - on Statin 6. Tobacco abuse - he cont smoking 1pk/day; smoking cessation education given to the pt 7. Illicit drug abuse MAR reviewed * CABG x3 in 05/2012 with LIMA_LAD, ,SVG-Ramus, and SVG-PLMB * hx of LHC in 07/2017 with 50% stenosis in SVG-RCA-PDA, 90% anastomosis in SVG- Ramus or Lt Cx with retrograde filling to bifurcated portion of vessel with EF 30-35% * Echo in 01/2019 with EF 50-55%, grade I dd, mod dilated LA, mild MR and TR, and borderline LVH * Pt. seen and eval. by me. I agree with the A/P by rthe [employer]. No complaints. Chest clear. RRR. Echo: EF 55-60%. No wall motion abnormalities. I think he has likely developed collaterals. it is best to continue medical management. Okay to d/c to home.
--- NOTE | 2019-04-10 14:26 | PDOC.HOSPP ---
- Subjective Encounter Date: 04/10/19 Encounter Time: 08:40 Subjective: Pt seen for followup re: NSTEMI. Feels better, no chest pain today. - Objective Vital Signs & Weight: Vital Signs (12 hours) Temp Pulse Resp BP Pulse Ox 04/10/19 11:13 98.1 F 58 L 16 124/94 H 98 04/10/19 07:15 98 F 59 L 18 144/67 H 98 04/10/19 03:55 98.5 F 60 18 110/63 97 Weight Weight 130 lb 1.6 oz I&O: 04/09/19 04/10/19 04/11/19 06:59 06:59 06:59 Intake Total 500 Output Total 400 Balance 100 Result Diagrams: 04/10/19 09:26 04/10/19 09:26 Additional Labs: Labs and MARs reviewed by me EKG Reviewed by me: Yes (Tele: NSR) Hospitalist ROS - Review of Systems Constitutional: denies: fever, chills, sweats, weakness, malaise Cardiovascular: reports: chest pain. denies: palpitations, orthopnea, paroxysmal noc. dyspnea, edema, light headedness Gastrointestinal: denies: nausea, vomiting, abdominal pain, diarrhea, constipation, melena, hematochezia Genitourinary: denies: dysuria, frequency, incontinence, hematuria, retention Musculoskeletal: denies: neck pain, shoulder pain, arm pain, back pain, hand pain, leg pain, foot pain - Medication Medications: Active Medications Generic Name Dose Route Start Last Admin Trade Name Freq PRN Reason Stop Dose Admin Aspirin 81 mg 04/10/19 09:00 04/10/19 08:22 Aspirin Chewable PO 81 mg DAILY [facility] Administration Atorvastatin Calcium 80 mg 04/09/19 21:00 04/09/19 21:01 Lipitor PO 80 mg HS [facility] Administration Carvedilol 6.25 mg 04/09/19 21:00 04/10/19 08:22 Coreg PO 6.25 mg BID [facility] Administration Clonidine 0.1 mg 04/09/19 15:00 04/10/19 08:23 Catapres PO 0.1 mg TID [facility] Administration Clopidogrel Bisulfate 75 mg 04/10/19 09:00 04/10/19 08:23 Plavix PO 75 mg DAILY [facility] Administration Enoxaparin Sodium 60 mg 04/09/19 21:00 04/10/19 08:21 Lovenox SC 60 mg 0900,2100 [facility] Administration Furosemide 40 mg 04/10/19 09:00 04/10/19 08:22 Lasix PO 40 mg DAILY [facility] Administration Hydralazine HCl 50 mg 04/09/19 21:00 04/10/19 08:22 Apresoline PO 50 mg TID [facility] Administration Isosorbide Mononitrate 120 mg 04/09/19 21:00 04/10/19 08:22 Imdur PO 120 mg BID [facility] Administration Lisinopril 40 mg 04/10/19 09:00 04/10/19 08:22 Zestril PO 40 mg DAILY [facility] Administration Ranolazine 500 mg 04/09/19 21:00 04/10/19 08:22 Ranexa PO 500 mg BID [facility] Administration Sertraline HCl 150 mg 04/10/19 09:00 04/10/19 08:22 Zoloft PO 150 mg DAILY [facility] Administration - Exam General Appearance: awake alert Eye: anicteric sclera ENT: moist mucosa Neck: supple, symmetric, no JVD, no thyromegaly, no lymphadenopathy Heart: RRR, no gallops, no rubs, normal peripheral pulses Respiratory: CTAB, no wheezes, no rales, no ronchi Gastrointestinal: soft, non-tender, non-distended, normal bowel sounds Extremities: no cyanosis Psychiatric: normal affect, normal behavior, A&O x 3 Hosp A/P (1) NSTEMI (non-ST elevated myocardial infarction) Code(s): I21.4 - NON-ST ELEVATION (NSTEMI) MYOCARDIAL INFARCTION Status: Acute (2) Dyslipidemia Code(s): E78.5 - HYPERLIPIDEMIA, UNSPECIFIED Status: Chronic (3) GERD (gastroesophageal reflux disease) Code(s): K21.9 - GASTRO-ESOPHAGEAL REFLUX DISEASE WITHOUT ESOPHAGITIS Status: Chronic Qualifiers: Esophagitis presence: without esophagitis Qualified Code(s): K21.9 - Gastro -esophageal reflux disease without esophagitis (4) HTN (hypertension) Code(s): I10 - ESSENTIAL (PRIMARY) HYPERTENSION Status: Chronic Qualifiers: Hypertension type: essential hypertension Qualified Code(s): I10 - Essential (primary) hypertension (5) Tobacco abuse Code(s): Z72.0 - TOBACCO USE Status: Chronic - Plan For medical management for NSTEMI. Lipitor for dyslipidemia. Aspirin and Plavix for CAD. Ranexa for anginal pain. Counseled re: tobacco cessation. HTN reasonably controlled.
[2019-04-10 15:31] VITALS: BP 150/71
[2019-04-10 15:54] VITALS: TEMP 97.9
--- NOTE | 2019-04-11 00:10 | DIS ---
DATE OF ADMISSION: 04/09/2019 DATE OF DISCHARGE: 04/10/2019 PRIMARY CARE PROVIDER: Jasper Barton, DO DISCHARGE DIAGNOSIS: Bhq-[id number] myocardial infarction. CONDITION OF PATIENT ON THE DAY OF DISCHARGE: Stable. I assessed Mr. Justin on the day of discharge. He denies any chest pain or shortness of breath. Vital signs are stable. S1 and S2 are heard, regular. Lungs are clear to auscultation bilaterally. CONSULTATIONS DURING THIS HOSPITALIZATION: Cardiology, Dr. Oglesby. POST ACUTE CARE FOLLOWUP: With primary care provider in 3 days and with Cardiology, Dr. Stewart, in 2 to 3 weeks. DISCHARGE MEDICATIONS: No change was made to his pre-admission home medications as dictated by Dr. Hall in her history and physical note dated April 09, 2019. HOSPITAL COURSE: Mr. Justin is a pleasant 53-year-old gentleman, who was admitted to [facility] on April 09, 2019, for [id number] myocardial infarction. He was seen by Cardiology Service. He received therapeutic Lovenox. 2D echocardiogram showed left ventricular ejection fraction of 55% to 60%, E/A flow reversal noted suggestive of diastolic dysfunction, normal right ventricular size and function, normal-sized left atrium, normal-sized right atrium, mild mitral regurgitation, structurally normal aortic valve, and mild tricuspid regurgitation. He has been cleared for discharge by Cardiology Service for medical management of coronary artery disease. DISCHARGE DESTINATION: Home. TIME SPENT: Total amount of time spent coordinating this discharge: 32 minutes. DIET: Heart healthy. ACTIVITY: As tolerated. On the day of discharge, he has normal chem-7; white count 11,100; hemoglobin 11.8; and platelet count 225,000. Many thanks for allowing me to participate in your patient's care. Please feel free to contact me with any questions or concerns. Job ID: [id number]
== END 2019-04-10 19:28 | disposition home or self-care (01) | DRG 280 ==
LOC: ERS 10:34 → 2NO 12:02
PROVIDERS: ADMIT Internal Medicine; ATTEND Internal Medicine
DX: I21.4 Non-ST elevation (NSTEMI) myocardial infarction (principal); I50.33 Acute on chronic diastolic (congestive) heart failure; E78.5 Hyperlipidemia, unspecified; I11.0 Hypertensive heart disease with heart failure; E78.00 Pure hypercholesterolemia, unspecified; I25.10 Atherosclerotic heart disease of native coronary artery without angina pectoris; D63.8 Anemia in other chronic diseases classified elsewhere; I48.0 Paroxysmal atrial fibrillation; F41.9 Anxiety disorder, unspecified; K21.9 Gastro-esophageal reflux disease without esophagitis; F17.210 Nicotine dependence, cigarettes, uncomplicated; F32.9 Major depressive disorder, single episode, unspecified; F12.10 Cannabis abuse, uncomplicated; Z95.1 Presence of aortocoronary bypass graft; Z90.49 Acquired absence of other specified parts of digestive tract; I25.2 Old myocardial infarction; Z95.5 Presence of coronary angioplasty implant and graft; Z79.01 Long term (current) use of anticoagulants
CPT/HCPCS: 36415; 36416; 80048; 80061; 82553; 84443; 84484; 85025; 93005; 93306; 94760; J1650

== ENCOUNTER 2019-05-19 10:26 | Inpatient (IN) | payer SELFPAY ==
[2019-05-19] MEDS ORDERED: Nitroglycerin 2% Ointment 1 INCH/1 GM Packet ONE (10:43)
[2019-05-19 10:57] LABS: #Basophils 0.1 thou/uL (0.0-0.2); #Eosinphils 0.2 thou/uL (0.0-0.7); #Lymphocytes 2.4 thou/uL (1.20-3.40); #Monocytes 0.9 thou/uL (0.11-0.59); #Neutrophils 15.6 thou/uL (1.40-6.50); %Basophils 0.7 % (0.0-1.0); %Eosinophils 1.1 % (0.0-10.0); %Lymphocytes 12.3 % (21.0-51.0); %Monocytes 4.9 % (0.0-10.0); %Neutrophils 81.1 % (42.0-75.0); Hemoglobin 14.6 g/dL (14.0-18.0); Mean Corpuscular HGB CONC 33.1 g/dL (32.0-36.0); Mean Corpuscular Hemoglobin 32.6 pg (27.0-31.0); Mean Corpuscular Volume 98.6 fL (78.0-98.0); Mean Platelet Volume 9.1 fL (7.4-10.4); Platelet Count 297 thou/uL (130-400); RBC Distribution Width 13.7 % (11.5-14.5); Red Blood Cell (RBC) Count 4.48 mill/uL (4.70-6.10); White Blood Cell (WBC) Count 19.2 thou/uL (4.8-10.8)
[2019-05-19] MEDS ORDERED: Haloperidol Lactate 5 MG/ML VIAL ONE (11:10)
--- NOTE | 2019-05-19 11:10 | RAD ---
Exam: Chest one view HISTORY:Chest pain Comparison: 04/09/2019 FINDINGS: Cardiac silhouette:Enlarged cardiac silhouette. There are sternotomy wires. Aorta: Atherosclerosis Pulmonary vessels: Normal Costophrenic angles: Persistent blunting of the left costophrenic angle, likely representing scar or atelectasis. LUNGS: No suspicious masses or consolidation. There appear to be stable lung parenchymal changes in t he left midlung suggesting scar. Stable hyperinflation. Pneumothorax: None Osseous abnormalities: None IMPRESSION: No acute cardiopulmonary process.
[2019-05-19 11:24] LABS: ALT (SGPT) 15 U/L (8-55); AST (SGOT) 16 U/L (5-34); Albumin 4.2 g/dL (3.5-5.0); Alkaline Phosphatase 141 U/L (40-110); Anion Gap 18 mmol/L (10-20); BUN (Urea Nitrogen) 26 mg/dL (8.4-25.7); Bilirubin, Total 0.3 mg/dL (0.2-1.2); Calc. Creatinine Clearance 0 mL/min (70-130); Calcium 9.5 mg/dL (7.8-10.44); Carbon Dioxide 18 mmol/L (22-29); Chloride 106 mmol/L (98-107); Estimated GFR-MDRD 60; Globulin 2.9 g/dL (2.4-3.5); Glucose 165 mg/dL (70-105); Lipase 62 U/L (8-78); Potassium 4.4 mmol/L (3.5-5.1); Protein, Total 7.1 g/dL (6.0-8.3); Sodium 138 mmol/L (136-145)
[2019-05-19] MEDS ORDERED: Morphine 4 MG/ML VIAL ONE ×2 (11:40→14:33)
[2019-05-19] MEDS ORDERED: diphenhydrAMINE 50 MG/ML VIAL ONE (11:42)
[2019-05-19] MEDS ORDERED: Famotidine/PF 20 mg/2ml Vial ONE (11:42)
[2019-05-19] MEDS ORDERED: methylPREDNISolone Sod Succ/PF 125 MG/2 ML VIAL ONE (11:42)
[2019-05-19 11:47] LABS: CKMB 2.1 ng/mL (0-6.6)
[2019-05-19] MEDS ORDERED: Metoprolol Tartrate 5 MG/5 ML VIAL ONE ×2 (12:07→14:02)
[2019-05-19] MEDS ORDERED: Nitroglycerin 0.4 MG TAB (25 Tab Bottle) PO PRN (12:23)
[2019-05-19] MEDS ORDERED: Ondansetron ODT 4 MG TAB PO PRN (12:23)
[2019-05-19 12:56] LABS: Bilirubin Negative (Negative); Blood, Urine Negative (Negative); Clarity Clear (Clear); Glucose, Urine (Dipstick) Normal (Negative); Leukocyte Negative Leu/uL (Negative); Nitrite Negative (Negative); Protein, Urine (Dipstick) Negative (Neg-Trace); Urobilinogen Normal mg/dL (Less than 2)
--- NOTE | 2019-05-19 12:57 | CT ---
CT arteriogram chest with IV contrast and 3-D imaging CT arteriogram abdomen with IV contrast and 3-D imaging HISTORY: Chest and abdomen pain with radiation to the back. COMPARISON: 07/14/2016. FINDINGS: There is good contrast opacification of the pulmonary arteries. Normal branching great vess els at the aortic arch. Calcification throughout the arterial structures. At the level of the diaphragm, there is fusiform dilatation of the aorta, measuring up to 4.0 cm grea test AP diameter. Prominent wall thickening and thrombus. At the level of the renal arteries, contrast flow stops, with the lower abdominal aorta and iliac art eries filled with low density thrombus. There is opacification of the right renal artery but not the left renal artery. There is dilatation of the arterial contrast filled inferior epigastric arteri es along the deep surface of the anterior abdominal wall. Marked atrophy of the left kidney with small cyst. Nonspecific lymph nodes within the retroperitoneum . Distention of the right renal pelvis, favored to not be related to high-grade urinary tract obstructi on. Gallbladder surgically absent. There is dystrophic calcification associated with a rocky hepatis lymph node. Prominent parenchymal scarring throughout the lungs with emphysematous changes and minimal left pleur al fluid. The pelvis was not imaged. Degenerative changes throughout the thoracolumbar spine. IMPRESSION: No CT evidence of pulmonary embolus. 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 Prominent atherosclerosis. Prominent atherosclerosis. Fusiform upper abdominal aortic aneurysm, 4.0 cm.
[2019-05-19] MEDS ORDERED: Lorazepam 2 MG/ML VIAL ONE (13:15)
[2019-05-19] MEDS ORDERED: hydrALAZINE 20 MG/ML VIAL ONE (13:15)
[2019-05-19 13:36] LABS: Troponin I 0.398 ng/mL (< 0.028)
[2019-05-19] MEDS: Metoprolol Tartrate 5 MG/5 ML VIAL IVP SCH (14:06)
[2019-05-19] MEDS ORDERED: Nitroglycerin 50 MG/250 ML BOT 250 ML IVPB SCH (14:30)
[2019-05-19] MEDS ORDERED: Iopamidol-370 76% 500 ML 1 ML ONE (14:31)
[2019-05-19] MEDS ORDERED: Nitroglycerin 50 MG/250 ML BOT 250 ML ONE (14:33)
--- NOTE | 2019-05-19 14:57 | CON ---
DATE OF CONSULTATION: HISTORY OF PRESENT ILLNESS: The patient is a 53-year-old gentleman, who presents with recurrent chest discomfort. The patient has a long history of coronary artery disease. He has previously undergone a coronary artery bypass surgery in 2012. He underwent a followup cardiac catheterization in 2018. He was found to have completely occluded [place] coronary vessels. His JORDAN was patent to the LAD, saphenous vein to the PDA was patent with diffuse plaque in the graft and two 50% stenotic lesion, saphenous vein graft to the ramus was patent, but had a 90% stenosis. The patient was found to have a marked decrease in left ventricular systolic function. The patient subsequently has been on medical therapy. He has been on multiple occasions with small non-Q-wave myocardial infarctions. The patient is felt to be a poor candidate for revascularization. The patient states he has been compliant with the medications. He presents with recurrent chest discomfort. PAST MEDICAL HISTORY: 1. Coronary artery disease. 2. Hypertension. 3. Dyslipidemia. 4. Renal artery stenosis. PAST SURGICAL HISTORY: He has had cholecystectomy and coronary artery bypass graft surgery. MEDICATIONS: See nursing list. ALLERGIES: NO KNOWN DRUG ALLERGIES. SOCIAL HISTORY: Long history of tobacco abuse. The patient uses marijuana. FAMILY HISTORY: Strong family history of heart disease. PHYSICAL EXAMINATION: GENERAL: Ill-appearing gentleman, in mild distress. VITAL SIGNS: Blood pressure 142/100. NECK: Showed no jugular venous distention. LUNGS: Clear to auscultation. HEART: Regular rate and rhythm. Normal S1 and S2. No murmurs. ABDOMEN: Nondistended. EXTREMITIES: Show no edema. LABORATORY DATA: Sodium 138, potassium 4.4, chloride 106, bicarbonate 18, BUN 26, and creatinine 1.2. Troponin is 0.398. White blood count 19.2, hematocrit of 14.6, hematocrit of 44.1, and his platelet are 297. IMAGING DATA: EKG revealed normal sinus rhythm with right bundle-branch block with ST depression suggestive of ischemia. CT scan revealed no evidence of an aortic dissection. IMPRESSION: 1. Hypertensive crisis. 2. Non-Q-wave myocardial infarction. 3. History of coronary artery bypass surgery. 4. Diffuse inoperable coronary artery disease. 5. Hypertension. 6. Dyslipidemia. 7. History of renal artery stenosis with stent placement. PLAN: This gentleman presents with hypertensive crisis, who will be placed on IV nitroglycerin. He has received metoprolol. We will add Ranexa. The patient will be monitored in the ICU. We will follow this patient with you through his hospitalization. This is a critical care note and the time is 40 minutes. Job ID: [id number]
[2019-05-19 16:05] LABS: Troponin I 1.085 ng/mL (< 0.028)
[2019-05-19] MEDS ORDERED: Enoxaparin Sodium 60 MG/0.6 ML SYRINGE ONE (17:15)
[2019-05-19] MEDS: Carvedilol 6.25 MG TAB PO SCH (19:29)
--- NOTE | 2019-05-19 20:24 | HP ---
CHIEF COMPLAINT: Chest pain. HISTORY OF PRESENT ILLNESS: Mr. Justin is a 53-year-old male with past medical history of myocardial infarction multiple, congestive heart failure, hypertension, tobacco abuse, ? substance abuse, hyperlipidemia, renal stenosis, among others; presents to the emergency room with chest pain that started around 9:30 a.m. this morning. Initially, the patient was unable to complete sentences as per EMS. The patient stated that he is on multiple blood thinners. The patient stated that he took aspirin this morning. Initially in the emergency room, the patient was hypertensive and tachycardic. Once given metoprolol, initial blood pressure was 193/108, the latest blood pressure 165/104. Initial troponin is 0.05 and repeat troponin is 0.39. Repeat EKG showed significant ST changes and wide complex tachycardia. Heart rate in the 120s. At that time, ER physician needs consulting with publication specialist for evaluation and for further recommendations. In the meantime, the patient is being admitted to hospital for further management. PAST MEDICAL HISTORY: As mentioned above in history of present illness. PAST SURGICAL HISTORY: 1. Cholecystectomy. 2. Coronary artery bypass graft surgery x3. 3. Cardiac stents x4. PAST PSYCHIATRIC HISTORY: 1. Anxiety. 2. Depression. 3. Suicide attempt at the age of 25. SOCIAL HISTORY: The patient abuses marijuana, smokes cigarettes. He denies alcohol drinking. FAMILY HISTORY: Include malignancy in father and heart disease. HOME MEDICATIONS: Please see home medication reconciliation form for updated medications. ALLERGIES: NO KNOWN ALLERGIES. REVIEW OF SYSTEMS: Review of 14-systems negative except what is mentioned in the history of present illness. PHYSICAL EXAMINATION: GENERAL: The patient is awake and alert, in mild distress. VITAL SIGNS: Blood pressure is 165/104, pulse is 111, respiratory rate is 16, pulse oximetry is 96% on room air, and temperature is 97.7. HEAD: Normocephalic and atraumatic. NECK: Supple. No JVD. CHEST: Fair bilateral air entry. HEART: S1 and S2. Regular. Tachycardic. ABDOMEN: Soft and nontender. Bowel sounds present. NEUROLOGIC: Awake, alert, and oriented x3. No focal deficits. PSYCH: Unable to assess. EXTREMITIES: No clubbing or cyanosis. LABORATORY DATA: As mentioned above in the history of present illness. 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 ASSESSMENT: 1. Acute coronary syndrome. 2. History of coronary artery disease, multiple myocardial infarctions, cardiac stents, coronary artery bypass graft surgery. 3. Hypertension. 4. Hyperlipidemia. 5. Congestive heart failure, chronic. 6. Cigarette smoker. PLAN: 1. Admit. 2. Telemonitoring. 3. The patient was given aspirin. 4. Cardiology to be consulted for evaluation and for further recommendations. 5. We will keep the patient n.p.o. for now until the patient is evaluated by Cardiology. 6. Monitor and control blood pressure. 7. Reconcile home medications. 8. DVT prophylaxis appropriate. 9. Expected length of stay 2 midnights or more. Job ID: [id number]
[2019-05-19] MEDS ORDERED: Metoprolol Tartrate 25 MG TAB PO SCH (21:00)
[2019-05-19 23:11] VITALS: BMI 17.9
[2019-05-19] MEDS: Atorvastatin Calcium 40 MG TAB PO SCH (23:38)
[2019-05-19] MEDS: Famotidine 20 MG TAB PO SCH (23:38)
[2019-05-20 04:30] LABS: Anion Gap 15 mmol/L (10-20); BUN (Urea Nitrogen) 24 mg/dL (8.4-25.7); Calc. Creatinine Clearance 69 mL/min (70-130); Calcium 9.2 mg/dL (7.8-10.44); Carbon Dioxide 21 mmol/L (22-29); Chloride 105 mmol/L (98-107); Estimated GFR-MDRD 85; Glucose 122 mg/dL (70-105); Potassium 3.5 mmol/L (3.5-5.1); Sodium 137 mmol/L (136-145)
[2019-05-20 04:40] LABS: Band 1 % (5-11); Hemoglobin 13.7 g/dL (14.0-18.0); Lymphocytes 7 % (21-51); MDiff Complete? YES; Mean Corpuscular HGB CONC 32.5 g/dL (32.0-36.0); Mean Corpuscular Hemoglobin 31.7 pg (27.0-31.0); Mean Corpuscular Volume 97.6 fL (78.0-98.0); Mean Platelet Volume 10.2 fL (7.4-10.4); Neutrophil 92 % (42-75); Platelet Count 278 thou/uL (130-400); Platelet Morphology Comment Appears Adequate; RBC Distribution Width 13.6 % (11.5-14.5); RBC Morphology Normal; Red Blood Cell (RBC) Count 4.31 mill/uL (4.70-6.10); White Blood Cell (WBC) Count 22.3 thou/uL (4.8-10.8)
--- NOTE | 2019-05-20 07:59 | PDOC.CPN ---
- Subjective Date: 05/20/19 Time: 08:12 Interval history: The pt seen and examined. No overnight events. No cardiac complaints. He has a sitter at bedside for suicide precaution. - Objective Allergies/Adverse Reactions: Allergies Allergy/AdvReac Type Severity Reaction Status Date / Time No Known Drug Allergies Allergy Verified 05/19/19 23:10 Visit Medications: Current Medications Acetaminophen (Tylenol) 650 mg PO Q4H PRN PRN Reason: Headache/Fever/Mild Pain (1-3) Amlodipine Besylate (Norvasc) 5 mg PO DAILY [facility] Aspirin (Ecotrin) 325 mg PO DAILY [facility] Atorvastatin Calcium (Lipitor) 80 mg PO HS [facility] Last Admin: 05/19/19 23:38 Dose: 80 mg Carvedilol (Coreg) 6.25 mg PO BID-WM [facility] Last Admin: 05/19/19 19:29 Dose: 6.25 mg Clopidogrel Bisulfate (Plavix) 75 mg PO DAILY [facility] Famotidine (Pepcid) 20 mg PO BID [facility] Last Admin: 05/19/19 23:38 Dose: 20 mg Nitroglycerin/Dextrose (Nitroglycerin 50 Mg/250 Ml Bot) 250 mls @ 0 mls/hr IVPB INF [facility]; Protocol Lisinopril (Zestril) 40 mg PO DAILY [facility] Nitroglycerin (Nitrostat) 0.4 mg PO Q5MIN PRN PRN Reason: Chest Pain Ondansetron HCl (Zofran Odt) 4 mg PO Q6H PRN PRN Reason: Nausea/Vomiting Pneumococcal 13-Valent Conj Vacc (Prevnar) 0.5 ml IM .ONCE ONE Stop: 05/20/19 21:01 Ranolazine (Ranexa) 500 mg PO BID [facility] Last Admin: 05/19/19 23:38 Dose: 500 mg Vital Signs & Weight: Vital Signs Temp Pulse Resp BP Pulse Ox 05/20/19 03:00 98.6 F 05/19/19 23:00 98.8 F 75 23 H 157/83 H 100 Weight 117 lb 8.102 oz - Physical Exam General: alert & oriented x3 HEENT: mucus membranes moist Neck: supple neck Cardiac: regular rate and rhythm, S1/S2 Lungs: clear to auscultation Neuro: cranial nerve 2-12 intact Extremities: no edema Skin: clear - Labs Result Diagrams: 05/20/19 03:08 05/20/19 03:08 Troponin/CKMB CK-MB (CK-2) 2.1 ng/mL (0-6.6) 05/19/19 10:47 Troponin I 1.085 ng/mL (< 0.028) H* 05/19/19 15:26 - Telemetry Sinus rhythms and dysrhythmias: sinus rhythm - Assessment/Plan Assessment/Plan: 1. NSTEMI - hightest trop was 1.08; will check another trop this AM; He complains of CP when NTG drip was weaning down; will resume Isosorbide 120mg BID from this AM; On Coreg, plavix and ASA; will resume Lisinopril from this AM 2. HTN - will resume his home BP meds and wean down NTG drip 3. CAD with hx of CABG in 2011 and s/p LHC in 07/2017 with severe CAD - cont medical tx only for now; on coreg, Lisinopril, plavix, asa, and Lipitor 4. Chronic diastolic HF - 5. Prox Afib in 12/2018 - 6. HLD 7. Tobacco and [place] drug abuse - strongly recommend cessation to the pt today MAR reviewed <Addendum> @ 0800: His trop this AM (at 0852) was 14.170. He cont complaining of CP with weaning down of NTG drip. Metoprolol IV push and Morphine IV push given for CP and HR > 130s. Zofran PRN for N&V. Will have check another trop. Pt. seen and eval. by me. I agree with the A/P by the MORTGAGE LOAN COUNSELOR. Repeat T.I. is now 9.2 , decreased from earlier this AM. When the pt. has tachycardia and increased myocardial demand he develpos ischemia. He was on a higher dose of Coreg in the pas but the HR decreased and the dose of coreg was decreased. He is not a good candidate for intervention. Continue medical treatment. He is unable to afford Ranexa and his other medications are paid for by his temple. He has tried to get disability in the past but was turned out. It would benefit him greatly if he could get disability. He has severe CADS,PVD, totally occluded distal Aorta and a decreased EF. He is not able to work due to the decreased EF and hif severe PVD and CAD.
[2019-05-20] MEDS: Carvedilol 6.25 MG TAB PO SCH ×2 (08:16→17:33)
[2019-05-20] MEDS: Famotidine 20 MG TAB PO SCH ×2 (08:17→20:32)
[2019-05-20] MEDS: Clopidogrel Bisulfate 75 MG TAB PO SCH (08:17)
[2019-05-20] MEDS: Lisinopril 20 MG TAB PO SCH (08:18)
[2019-05-20] MEDS ORDERED: Metoprolol Tartrate 5 MG/5 ML VIAL IVP PRN (08:48)
[2019-05-20] MEDS ORDERED: Amlodipine 5 MG TAB PO SCH ×4 (09:00→11:30)
[2019-05-20] MEDS: Metoprolol Tartrate 5 MG/5 ML VIAL IVP SCH (09:00)
[2019-05-20] MEDS ORDERED: Aspirin 325 mg Enteric Coated Tablet PO SCH (09:00)
[2019-05-20] MEDS ORDERED: Morphine 2 MG/ML SYRINGE SLOW IVP SCH ×2 (09:00→10:00)
[2019-05-20] MEDS ORDERED: Morphine 4 MG/ML VIAL ONE (09:02)
[2019-05-20] MEDS ORDERED: Ondansetron PF 4 MG/2 ML Vial IVP PRN (09:08)
[2019-05-20] MEDS ORDERED: Morphine 2 MG/ML SYRINGE SLOW IVP PRN (09:08)
[2019-05-20] MEDS ORDERED: Aspirin 81 mg Enteric Coated Tablet PO SCH (09:30)
[2019-05-20 10:05] LABS: Critical Call Chem Troponin I RESULT DECREASING; Troponin I 9.281 ng/mL (< 0.028)
[2019-05-20] MEDS ORDERED: Insulin Regular 300 UNITS/3 ML VIAL ONE (10:07)
[2019-05-20] MEDS ORDERED: Carvedilol 6.25 MG TAB PO SCH ×3 (11:05→11:15)
--- NOTE | 2019-05-20 16:02 | PDOC.HOSPP ---
- Subjective Encounter Date: 05/20/19 Subjective: The patient denies any chest pain or SOB at this time - Objective Vital Signs & Weight: Vital Signs (12 hours) Temp Pulse BP Pulse Ox 05/20/19 11:22 73 163/81 H 05/20/19 11:21 163/81 H 05/20/19 11:00 98.2 F 05/20/19 08:18 79 164/89 H 05/20/19 08:16 164/89 H 05/20/19 08:00 99 05/20/19 07:00 98.7 F Weight Admit Weight 117 lb 8.102 oz Weight 117 lb 8.102 oz Most Recent Monitor Data Heart Rate from ECG 69 NIBP 127/59 NIBP BP-Mean 81 Respiration from ECG 21 SpO2 100 I&O: 05/19/19 05/20/19 05/21/19 06:59 06:59 06:59 Intake Total 1050 Output Total 625 750 Balance -625 300 Result Diagrams: 05/20/19 03:08 05/20/19 03:08 Hospitalist ROS - Medication Medications: Active Medications Generic Name Dose Route Start Last Admin Trade Name Nareshq PRN Reason Stop Dose Admin Atorvastatin Calcium 80 mg 05/19/19 21:00 05/19/19 23:38 Lipitor PO 80 mg HS [facility]CELLA Administration Clopidogrel Bisulfate 75 mg 05/20/19 09:00 05/20/19 08:17 Plavix PO 75 mg DAILY [facility] Administration Famotidine 20 mg 05/19/19 21:00 05/20/19 08:17 Pepcid PO 20 mg BID [facility]A Administration Isosorbide Mononitrate 120 mg 05/20/19 09:00 05/20/19 08:17 Imdur PO 120 mg BID [facility] Administration Lisinopril 40 mg 05/20/19 09:00 05/20/19 08:18 Zestril PO 40 mg DAILY [facility] Administration Ranolazine 500 mg 05/19/19 21:00 05/20/19 08:25 Ranexa PO 500 mg BID [facility] Administration Sodium Chloride 10 ml 05/20/19 09:00 05/20/19 08:19 Flush - Normal Saline IVF 10 ml Q12HR [facility]CELLA Administration - Exam General Appearance: NAD Neck: supple, no JVD Heart: RRR, no murmur, no gallops, no rubs, normal peripheral pulses Respiratory: CTAB, no wheezes, no rales, no ronchi Gastrointestinal: soft Extremities: no cyanosis Hosp A/P (1) NSTEMI (non-ST elevated myocardial infarction) Code(s): I21.4 - NON-ST ELEVATION (NSTEMI) MYOCARDIAL INFARCTION Status: Acute (2) Malignant hypertension Code(s): I10 - ESSENTIAL (PRIMARY) HYPERTENSION Status: Acute (3) Suicidal ideation Code(s): R45.851 - SUICIDAL IDEATIONS Status: Acute (4) CAD (coronary artery disease) Code(s): I25.10 - ATHSCL HEART DISEASE OF [place] CORONARY ARTERY W/O ANG PCTRS Status: Chronic Qualifiers: Coronary Disease-Associated Artery/Lesion type: bypass graft [place] vs. transplanted heart: [place] heart Associated angina: with stable angina Qualified Code(s): I25.708 - Atherosclerosis of coronary artery bypass graft(s) , unspecified, with other forms of angina pectoris (5) Tobacco abuse Code(s): Z72.0 - TOBACCO USE Status: Chronic - Plan The patient is not a candidate for invasive intervention per cardiology Continue Aspirin, Plavix, Atorvastatin, Imdur, Metoprolol, Renexa and Lisinopril
--- NOTE | 2019-05-20 18:53 | CON ---
DATE OF CONSULTATION: 05/20/2019 HISTORY OF PRESENT ILLNESS: Mr. Justin is a 53-year-old male with coronary artery disease. He was admitted with chest discomfort. He was bypassed in 2011. He had a repeat heart catheterization 2 years ago. His ejection fraction had decreased. Medical management was recommended, but unfortunately, he has continued to smoke. He is on nitroglycerin drip. He says he is feeling better. He denies shortness of breath. PAST MEDICAL HISTORY: Remarkable for hypertension, lipid disorder, renal artery stenosis, cholecystectomy, and heart surgery. SOCIAL HISTORY: Still smoking both cigarettes and marijuana up until this admission. ALLERGIES: HE HAS NO DRUG ALLERGIES. FAMILY HISTORY: Negative for lung disease in early age, but positive for heart disease. REVIEW OF SYSTEMS: Ten-point review of systems is otherwise negative. PHYSICAL EXAMINATION: VITAL SIGNS: Heart rate 68, blood pressure 127/59, respiratory rate is 20, oximetry is 100%. HEENT: Pupils are equal. Sclerae are anicteric. NECK: Supple. No lymphadenopathy. LUNGS: Clear. HEART: Regular rhythm. S1 and S2 are normal. ABDOMEN: Soft and nontender. EXTREMITIES: Without clubbing, cyanosis, or edema. LABORATORY DATA: White count 22.3, hemoglobin 13.7, platelets 278. Electrolytes are normal, creatinine is 0.93. Troponin yue to 14 and is down to 9. IMPRESSION: Non-Q-wave myocardial infarction with inoperable coronary artery disease. We had discussion about smoking. He agreed with current management. I will follow while he is in the critical care unit. There is no clinical evidence of obstructive lung disease at this point in time. He did have a dissection CT when he presented. He does have changes of obstructive lung disease, but I do not think this will chart changer at this point in time. TIME SPENT: This is a 70-minute consult, 50% of the time spent on the unit coordinating care. Job ID: [id number] MTDD
[2019-05-20] MEDS: Atorvastatin Calcium 40 MG TAB PO SCH (20:31)
[2019-05-20] MEDS ORDERED: Prevnar 13-Val Conj/PF 0.5 ML SYRINGE IM ONE (21:00)
[2019-05-20] MEDS ORDERED: Temazepam 15 MG CAP PO SCH ×2 (23:45)
[2019-05-21] MEDS: Acetaminophen 325 MG TAB PO PRN (04:08)
[2019-05-21] MEDS: Carvedilol 6.25 MG TAB PO SCH ×2 (09:20→16:57)
[2019-05-21] MEDS: Aspirin 81 mg Enteric Coated Tablet PO SCH (09:22)
[2019-05-21] MEDS: Famotidine 20 MG TAB PO SCH ×2 (09:22→20:10)
[2019-05-21] MEDS: Amlodipine 10 MG TAB PO SCH (09:22)
[2019-05-21] MEDS: Lisinopril 20 MG TAB PO SCH (09:23)
[2019-05-21] MEDS: Clopidogrel Bisulfate 75 MG TAB PO SCH (09:23)
--- NOTE | 2019-05-21 09:51 | PDOC.HOSPP ---
- Subjective Encounter Date: 05/21/19 Subjective: Feels better - Objective Vital Signs & Weight: Vital Signs (12 hours) Temp Pulse BP 05/21/19 09:23 133/78 05/21/19 09:22 133 H 147/86 H 05/21/19 09:20 133/78 05/21/19 08:00 98.8 F 05/21/19 04:00 99.5 F 05/21/19 00:00 99.0 F Weight Admit Weight 117 lb 8.102 oz Weight 117 lb 8.102 oz Most Recent Monitor Data Heart Rate from ECG 69 NIBP 153/74 NIBP BP-Mean 100 Respiration from ECG 18 SpO2 99 I&O: 05/20/19 05/21/19 05/22/19 06:59 06:59 06:59 Intake Total 2185.7 140 Output Total 625 1975 0 Balance -625 210.7 140 Result Diagrams: 05/20/19 03:08 05/20/19 03:08 Hospitalist ROS - Medication Medications: Active Medications Generic Name Dose Route Start Last Admin Trade Name Freq PRN Reason Stop Dose Admin Acetaminophen 650 mg 05/19/19 12:23 05/21/19 04:08 Tylenol PO 650 mg Q4H PRN Administration Headache/Fever/Mild Pain (1-3) Amlodipine Besylate 10 mg 05/21/19 09:00 05/21/19 09:22 Norvasc PO 10 mg DAILY [facility] Administration Aspirin 81 mg 05/21/19 09:00 05/21/19 09:22 Ecotrin PO 81 mg DAILY [facility] Administration Atorvastatin Calcium 80 mg 05/19/19 21:00 05/20/19 20:31 Lipitor PO 80 mg HS [facility] Administration Carvedilol 12.5 mg 05/20/19 17:00 05/21/19 09:20 Coreg PO 12.5 mg BID-WM [facility] Administration Clopidogrel Bisulfate 75 mg 05/20/19 09:00 05/21/19 09:23 Plavix PO 75 mg DAILY [facility] Administration Famotidine 20 mg 05/19/19 21:00 05/21/19 09:22 Pepcid PO 20 mg BID [facility] Administration Isosorbide Mononitrate 120 mg 05/20/19 09:00 05/21/19 09:23 Imdur PO 120 mg BID [facility] Administration Lisinopril 40 mg 05/20/19 09:00 05/21/19 09:23 Zestril PO 40 mg DAILY [facility] Administration Ranolazine 500 mg 05/19/19 21:00 05/21/19 09:24 Ranexa PO 500 mg BID [facility] Administration Sodium Chloride 10 ml 05/20/19 09:00 05/21/19 09:24 Flush - Normal Saline IVF 10 ml Q12HR [facility] Administration - Exam General Appearance: NAD Eye: PERRL ENT: normocephalic atraumatic Neck: supple, no JVD Heart: RRR Respiratory: CTAB Gastrointestinal: soft Extremities: no cyanosis Neurological: cranial nerve grossly intact, no focal deficits Hosp A/P (1) NSTEMI (non-ST elevated myocardial infarction) Code(s): I21.4 - NON-ST ELEVATION (NSTEMI) MYOCARDIAL INFARCTION Status: Acute (2) Malignant hypertension Code(s): I10 - ESSENTIAL (PRIMARY) HYPERTENSION Status: Acute (3) Suicidal ideation Code(s): R45.851 - SUICIDAL IDEATIONS Status: Acute (4) CAD (coronary artery disease) Code(s): I25.10 - ATHSCL HEART DISEASE OF [place] CORONARY ARTERY W/O ANG PCTRS Status: Chronic Qualifiers: Coronary Disease-Associated Artery/Lesion type: bypass graft [place] vs. transplanted heart: [place] heart Associated angina: with stable angina Qualified Code(s): I25.708 - Atherosclerosis of coronary artery bypass graft(s) , unspecified, with other forms of angina pectoris (5) Tobacco abuse Code(s): Z72.0 - TOBACCO USE Status: Chronic - Plan The patient is not a candidate for invasive intervention per cardiology Continue Aspirin, Plavix, Atorvastatin, Imdur, Metoprolol, Renexa and Lisinopril. Clinically stable. No suicidal ideations. Okay to DC sitter and ambulate. Will DC when cleared by cardiology.
--- NOTE | 2019-05-21 11:54 | PRG ---
DATE OF SERVICE: 05/21/2019 SUBJECTIVE: Patrick Justin has had no chest discomfort. OBJECTIVE: VITAL SIGNS: Heart rate is in 108 to 110 range. When I saw him this morning, heart rate is 67, blood pressure is 133/78, respiratory rate is 19, oximetry is 100%. LUNGS: Clear. HEART: Regular rhythm. ABDOMEN: Soft. IMPRESSION: Unstable angina with ongoing tobacco use up until this admission. We had a long discussion about not smoking cigarettes or marijuana moving forward. He is stable to transfer out of Critical Care in my opinion. We will sign off. He is probably stable to go home actually. Job ID: [id number]
--- NOTE | 2019-05-21 13:34 | PRG ---
DATE OF SERVICE: 05/21/2019 SUBJECTIVE: Mr. Justin is doing very well. No current complaints of chest pain or pressure. He states he is feeling great. He recently stopped smoking. After reviewing the records, it appears Mr. Justin has severe multivessel disease. He has occlusion of the LAD, circumflex artery, and right coronary artery. His assess vein graft to the right coronary artery is patent with diffuse distal disease. He also has severe stenosis of the ostium of the saphenous vein graft to the OM branch with severe distal disease. His JORDAN to the LAD is patent. Dr. Stewart has opted for continued medical therapy and not felt to be a candidate for intervention. He also has an occluded distal aorta. PHYSICAL EXAMINATION: VITAL SIGNS: Current blood pressure 133/78, pulse 67, respirations 20. GENERAL: The patient is a pleasant male, in no acute distress. He does appear older than stated age. HEAD, EYES, EARS, NOSE, And THROAT: Sclerae without icterus. MOUTH: Moist mucous membranes, normal palate. NECK: No jugular venous distention. Carotid upstroke is brisk. No bruits bilaterally. LUNGS: Clear to auscultation. HEART: Regular rate and rhythm, normal S1 and S2. ABDOMEN: Soft, nontender, nondistended. EXTREMITIES: No edema. PERTINENT LABORATORY DATA: Hemoglobin 13.7, hematocrit 42.1, and platelet count 278. IMPRESSION: 1. Severe multivessel disease. 2. Non-Q-wave myocardial infarction. 3. Continued tobacco abuse. 4. Questionable compliance. RECOMMENDATIONS: Mr. Justin currently is stable. His troponin peaked at 14 and decreased to 9. He is not felt to be an appropriate candidate for intervention. At this point, continue current medical therapy. We will continue aspirin, Plavix, and isosorbide. We will add Ranexa 500 mg b.i.d. Can supply him with samples and see if his symptoms improve. There is some concern for compliance and continued tobacco abuse. Otherwise, from my standpoint, I have no further recommendations. Home soon. Job ID: [id number]
[2019-05-21] MEDS: Atorvastatin Calcium 40 MG TAB PO SCH (20:10)
[2019-05-22] MEDS: Acetaminophen 325 MG TAB PO PRN (03:45)
[2019-05-22 09:21] VITALS: TEMP 98.1
[2019-05-22] MEDS: Amlodipine 10 MG TAB PO SCH (09:37)
[2019-05-22] MEDS: Aspirin 81 mg Enteric Coated Tablet PO SCH (09:38)
[2019-05-22] MEDS: Clopidogrel Bisulfate 75 MG TAB PO SCH (09:38)
[2019-05-22] MEDS: Famotidine 20 MG TAB PO SCH (09:38)
[2019-05-22] MEDS: Lisinopril 20 MG TAB PO SCH (09:38)
[2019-05-22] MEDS: Carvedilol 6.25 MG TAB PO SCH (09:45)
[2019-05-22 09:46] VITALS: BP 133/78
--- NOTE | 2019-05-23 00:38 | DIS ---
DATE OF ADMISSION: 05/19/2019 DATE OF DISCHARGE: 05/22/2019 DISCHARGE DIAGNOSES: 1. Non ST-elevation myocardial infarction. 2. Malignant hypertension. 3. Suicidal ideation. 4. Coronary artery disease. 5. Tobacco abuse. DISCHARGE MEDICATIONS: 1. Norvasc 5 mg orally daily. 2. Aspirin 81 mg orally daily. 3. Atorvastatin 80 mg orally nightly. 4. Coreg 6.25 mg orally twice daily. 5. Hydralazine 50 mg orally three times a day. 6. Isosorbide mononitrate 120 mg orally twice daily. 7. Lisinopril 40 mg orally daily. 8. Nitroglycerin 0.4 mg sublingual as needed for chest pain. 9. Ranolazine 500 mg orally twice daily. HISTORY OF PRESENT ILLNESS AND HOSPITAL COURSE: This is a 53-year-old male with past medical history of coronary artery disease, hypertension, hyperlipidemia, and renal artery stenosis, who presents to the hospital with recurrent chest discomfort in a patient with long history of coronary artery disease with bypass surgery in 2011. He underwent a cardiac cath in 2018, which showed completely occluded [place] vessels. His JORDAN was patent to LAD, saphenous vein to PDA was patent with diffuse plaquing in the graft and 250% stenotic lesions, saphenous vein graft to the ramus was patent with 90% stenosis. Medical management was recommended at that time. During this hospitalization, the patient was found to have uncontrolled hypertension and his troponin level peaked at 14 and then trended down. Cardiology service consulted and he was managed medically. Apparently, the patient ran out of his medications prior to presentation. When medical management was instituted, his blood pressure normalized and his chest pain became controlled. The patient was instructed to follow up with his PCP in one week. Job ID: [id number]
== END 2019-05-22 13:45 | disposition home or self-care (01) | DRG 281 ==
LOC: ERS 10:26 → ERHOLD 13:26 → CCU 14:04 → ONC 14:04 → CCU 22:52 → ONC 05-21 17:47
PROVIDERS: ADMIT Internal Medicine; ATTEND Internal Medicine
DX: I21.4 Non-ST elevation (NSTEMI) myocardial infarction (principal); R45.851 Suicidal ideations; I16.9 Hypertensive crisis, unspecified; I50.32 Chronic diastolic (congestive) heart failure; I25.10 Atherosclerotic heart disease of native coronary artery without angina pectoris; F17.210 Nicotine dependence, cigarettes, uncomplicated; E78.5 Hyperlipidemia, unspecified; F41.9 Anxiety disorder, unspecified; F32.9 Major depressive disorder, single episode, unspecified; F12.10 Cannabis abuse, uncomplicated; I11.0 Hypertensive heart disease with heart failure; I48.0 Paroxysmal atrial fibrillation; E78.00 Pure hypercholesterolemia, unspecified; Z90.49 Acquired absence of other specified parts of digestive tract; Z95.1 Presence of aortocoronary bypass graft; I25.2 Old myocardial infarction; Z95.5 Presence of coronary angioplasty implant and graft; Z79.01 Long term (current) use of anticoagulants
CPT/HCPCS: 36415; 71045; 71275; 72191; 74175; 80048; 80053; 81003; 82553; 83690; 83880; 84484; 85025; 93005; 93010; 94760; 96361; 96365; 96366; 96372; 96375; 96376; J0360; J1200; J1630; J1650; J1815; J2060; J2270; J2930; Q9967; S0028

== ENCOUNTER 2019-06-03 21:55 | Observation (INO) | payer SELFPAY ==
[2019-06-03] MEDS ORDERED: Nitroglycerin 2% Ointment 1 INCH/1 GM Packet ONE (22:18)
[2019-06-03 22:27] LABS: #Basophils 0.1 thou/uL (0.0-0.2); #Eosinphils 0.1 thou/uL (0.0-0.7); #Lymphocytes 2.5 thou/uL (1.20-3.40); %Lymphocytes 16.9 % (21.0-51.0); %Monocytes 6.4 % (0.0-10.0); %Neutrophils 74.7 % (42.0-75.0); Hemoglobin 13.3 g/dL (14.0-18.0); Mean Corpuscular HGB CONC 33.9 g/dL (32.0-36.0); Mean Corpuscular Volume 97.3 fL (78.0-98.0); Mean Platelet Volume 8.2 fL (7.4-10.4); Platelet Count 286 thou/uL (130-400); RBC Distribution Width 13.8 % (11.5-14.5); Red Blood Cell (RBC) Count 4.02 mill/uL (4.70-6.10); White Blood Cell (WBC) Count 14.8 thou/uL (4.8-10.8)
[2019-06-03 22:49] LABS: ALT (SGPT) 10 U/L (8-55); AST (SGOT) 14 U/L (5-34); Albumin 3.5 g/dL (3.5-5.0); Alkaline Phosphatase 101 U/L (40-110); Anion Gap 15 mmol/L (10-20); BUN (Urea Nitrogen) 25 mg/dL (8.4-25.7); Bilirubin, Total 0.2 mg/dL (0.2-1.2); CK (CPK) 36 U/L (30-200); Calc. Creatinine Clearance 0 mL/min (70-130); Calcium 8.8 mg/dL (7.8-10.44); Carbon Dioxide 24 mmol/L (22-29); Chloride 101 mmol/L (98-107); Estimated GFR-MDRD 63; Globulin 2.8 g/dL (2.4-3.5); Glucose 138 mg/dL (70-105); Lipase 39 U/L (8-78); Potassium 3.8 mmol/L (3.5-5.1); Protein, Total 6.3 g/dL (6.0-8.3); Sodium 136 mmol/L (136-145)
--- NOTE | 2019-06-03 22:55 | RAD ---
RADIOGRAPH CHEST 1 VIEW: DATE: 06/03/2019 HISTORY: 53-year-old male with chest pain FINDINGS: There are no airspace densities, pulmonary edema, pneumothorax, or cardiomegaly. The lateral costophr enic angles are sharp. Pulmonary scar at the lateral aspect of left midlung zone. Sternotomy wires. No interval change since 05/19/2019. IMPRESSION: 1. No acute cardiopulmonary findings. 2. Left-sided pulmonary scar. 3. Previous open-heart surgery.
[2019-06-04] MEDS ORDERED: Acetaminophen 650 MG Suppository PR PRN (01:12)
[2019-06-04] MEDS ORDERED: Acetaminophen 325 MG TAB PO PRN (01:12)
[2019-06-04] MEDS ORDERED: Nitroglycerin 0.4 MG TAB (25 Tab Bottle) SL PRN (01:46)
[2019-06-04 02:03] LABS: Troponin I 0.059 ng/mL (< 0.028)
[2019-06-04 02:10] LABS: #Basophils 0.1 thou/uL (0.0-0.2); #Eosinphils 0.2 thou/uL (0.0-0.7); #Monocytes 0.8 thou/uL (0.11-0.59); %Eosinophils 1.2 % (0.0-10.0); %Lymphocytes 21.2 % (21.0-51.0); %Monocytes 5.8 % (0.0-10.0); %Neutrophils 70.7 % (42.0-75.0); Hemoglobin 13.4 g/dL (14.0-18.0); Mean Corpuscular HGB CONC 34.4 g/dL (32.0-36.0); Mean Corpuscular Hemoglobin 33.1 pg (27.0-31.0); Mean Corpuscular Volume 96.4 fL (78.0-98.0); Mean Platelet Volume 8.5 fL (7.4-10.4); Platelet Count 271 thou/uL (130-400); RBC Distribution Width 13.7 % (11.5-14.5); Red Blood Cell (RBC) Count 4.03 mill/uL (4.70-6.10); White Blood Cell (WBC) Count 14.1 thou/uL (4.8-10.8)
[2019-06-04 02:27] LABS: Lactic Acid 0.6 mmol/L (0.5-2.2)
[2019-06-04 02:49] LABS: Anion Gap 14 mmol/L (10-20); BUN (Urea Nitrogen) 22 mg/dL (8.4-25.7); Calc. Creatinine Clearance 70 mL/min (70-130); Carbon Dioxide 24 mmol/L (22-29); Chloride 102 mmol/L (98-107); Estimated GFR-MDRD 76; Glucose 80 mg/dL (70-105); Potassium 4.1 mmol/L (3.5-5.1); Sodium 136 mmol/L (136-145)
--- NOTE | 2019-06-04 06:37 | HP ---
TIME OF ASSESSMENT: 0100 PRIMARY CARE PHYSICIAN: Dr. Jasper Barton. CHIEF COMPLAINT: Chest pain, nausea, and vomiting. HISTORY OF PRESENT ILLNESS: Mr. Justin is a 53-year-old gentleman who presents to the emergency department due to concerns of chest pain that started yesterday evening. He states it lasted about 30 minutes and was relieved with nitro. He eventually fell asleep. This morning, however, the patient had another episode of chest pain. He states he took his medications as normal and his pain eventually resolved. However, he noted his blood pressure was significantly elevated. He states it was in the 200 systolic. Later this evening, he experienced another episode of chest pain around 6:00 p.m. and it remained constant, which he rates an 8/10 in severity over the left side of his chest and nonradiating. He reports having associated nausea, vomiting. Patient took nitroglycerin with no significant improvement and opted to come to the emergency department. He does have known coronary artery disease and his co founder and ceo is Dr. Stewart. The patient apparently has multi-vessel disease with occlusion of the LAD, circumflex artery, and right coronary artery. He has a history of CABG done in 2011. The patient was recently admitted to the hospital from 05/19/2019 to 05/22/2019 with an NSTEMI. He was seen by Cardiology who recommended medical management and stated that the patient was inoperable. There is a mention of him being noncompliant with medications. However, patient insists since the recent discharge from the hospital he has been on his medications regularly. His last echo was done on April 10, 2019, showing EF of 55% to 60% with diastolic dysfunction noted as well as mild MR and mild TR. REVIEW OF SYSTEMS: Patient denies having any recent fevers, chills, or sweats. Denies having any abdominal pain or cramping. Denies any changes with his stools. States that he does experience nausea, vomiting when his blood pressure is significantly elevated as it was today. Since his blood pressure has been under control, this has fully resolved. Patient states that his chest pain improved after he was put on Nitro-Bid in the ER. At present, he is completely asymptomatic. He is found resting comfortably in bed. He does report having a cough that is chronic and unchanged. EMERGENCY DEPARTMENT COURSE: In the emergency department, he was normotensive on arrival with a blood pressure of 136/69. He had an EKG done showing a normal sinus rhythm with a heart rate of 70. He was noted to have a bifascicular block, which appeared normal when compared to the previous EKG done on 05/19/2019. He was given 1-inch of Nitro-Bid. A chest x-ray was done showing no acute cardiopulmonary findings. There was a left-sided pulmonary scar. Changes consistent with previous open-heart surgery. Otherwise, no acute changes. Laboratory studies done showed a white count of 14.8, hemoglobin 13.3, hematocrit 39.1, and neutrophils 74.7%. Sodium 136, potassium 3.9, BUN 25, creatinine 1.20, GFR 63, and total bilirubin 0.2. Remaining LFTs unremarkable. Lipase normal at 39. Patient had normal CK of 36 and initial troponin also normal at 0.021. Patient is admitted for ACS rule out. ALLERGIES: NO KNOWN DRUG ALLERGIES. CURRENT MEDICATIONS: 1. Aspirin. 2. Lisinopril. 3. Isosorbide mononitrate. 4. Lasix. 5. Zoloft. 6. Hydralazine. 7. Clonidine. 8. Nitroglycerin. 9. Lipitor. 10. Coreg. 11. Plavix. PAST MEDICAL HISTORY: 1. CAD. 2. Multiple MIs. 3. CHF. 4. Hypertension. 5. Tobacco abuse. 6. Possible history of substance abuse. 7. Hyperlipidemia. 8. Renal stenosis. 9. Anxiety. 10. Depression. PAST SURGICAL HISTORY: 1. Cholecystectomy in 2003. 2. CABG x3. 3. Cardiac stents x4. SOCIAL HISTORY: Patient is a smoker, but states he quit recently. Reports smoking marijuana. Denies any alcohol consumption. FAMILY HISTORY: Includes malignancy in father and heart disease. PHYSICAL EXAMINATION: GENERAL: Patient appears thin, well developed, in no acute distress, resting comfortably in bed. VITAL SIGNS: Temperature 97.8, pulse 70, respirations 13, O2 saturation 97% on room air, and blood pressure 142/75. HEENT: Normocephalic and atraumatic. Pupils are equal, round, and reactive to light with no sclerae icterus. Oropharynx is clear. NECK: Supple without lymphadenopathy. LUNGS: Notable for slight wheeze in the right lower lung base, otherwise clear. CARDIAC: Regular rate and rhythm. No chest wall tenderness with palpation. ABDOMEN: Soft, nontender, and nondistended. Normoactive bowel sounds present. No guarding or rigidity. No renal angle tenderness. EXTREMITIES: No lower leg swelling or edema. Peripheral pulses equal and strong bilaterally. SKIN: Warm and dry. INVESTIGATIONS: As mentioned above in HPI. IMPRESSION AND PLAN: Mr. Justin is a 53-year-old gentleman with a known history of multi-vessel coronary artery disease, deemed to be inoperable by Cardiology and recommended medical management, who has been admitted due to chest pain as well as nausea and vomiting associated with elevated blood pressure. He is being admitted for the followin. Acute coronary syndrome rule out. Initial troponin negative. We will continue to trend troponins. Patient on continuous cardiac monitoring. He is asymptomatic at present since Nitro-Bid put on in the ER. As mentioned, Cardiology has seen patient during recent admission this month and stated he is inoperable with recommendations to continue medical management. We will let Day Team decide if further Cardiology input indicated. 2. Hypertension. Blood pressure is currently under control. Continue to monitor blood pressure. We will reconcile home medications once verified. 3. Leukocytosis. Longstanding and appears improved from recent admission. We will add lactic acid and procalcitonin. No suspected underlying infection. Patient is afebrile. 4. Hyperlipidemia. Resume home medications once verified. 5. Anxiety and depression. Resume home medications once verified. 6. Deep venous thrombosis prophylaxis. Mechanical SCDs. Walking Program also consulted. 7. Gastrointestinal prophylaxis with famotidine. 8. Code status. Full. Consult has been placed for Palliative Care for discussion of advanced directive as well as goals of therapy given the underlying inoperable disease and the likelihood the patient will have recurrent chest pain. Therefore, symptom management would also be a beneficial discussion. Case was discussed with attending who agrees upon care as described above. Job ID: [id number] [facility]
[2019-06-04] MEDS: hydrALAZINE 25 MG TAB PO SCH ×3 (08:43→20:22)
[2019-06-04] MEDS: Aspirin 325 MG TAB PO SCH (08:44)
[2019-06-04] MEDS: Furosemide 40 MG TAB PO SCH (08:45)
[2019-06-04] MEDS ORDERED: Lisinopril 20 MG TAB PO SCH (09:00)
[2019-06-04] MEDS ORDERED: Carvedilol 6.25 MG TAB PO SCH (09:00)
[2019-06-04] MEDS ORDERED: Famotidine/PF 20 mg/2ml Vial SLOW IVP SCH (09:00)
[2019-06-04] MEDS ORDERED: Amlodipine 5 MG TAB PO SCH (09:00)
[2019-06-04] MEDS: Carvedilol 6.25 MG TAB PO SCH ×2 (09:07→20:23)
[2019-06-04] MEDS: Lisinopril 20 MG TAB PO SCH (09:08)
[2019-06-04] MEDS: Clopidogrel Bisulfate 75 MG TAB PO SCH (09:09)
[2019-06-04] MEDS ORDERED: Mag-Al 1200 mg/1200 mg/30 ML UDCUP PO PRN (12:11)
[2019-06-04] MEDS ORDERED: Famotidine 20 MG TAB PO SCH (12:15)
--- NOTE | 2019-06-04 13:17 | PDOC.CPN ---
- Subjective Date: 06/04/19 Time: 13:25 Interval history: The pt started intermittent CP on Saturday. He could not hold any medication all day yesterday. He denied any cardiac complaints today. - Objective Allergies/Adverse Reactions: Allergies Allergy/AdvReac Type Severity Reaction Status Date / Time No Known Drug Allergies Allergy Verified 06/04/19 00:16 Visit Medications: Current Medications Acetaminophen (Tylenol) 650 mg PO Q4H PRN PRN Reason: Headache/Fever/Mild Pain (1-3) Acetaminophen (Tylenol) 650 mg [place] Q4H PRN PRN Reason: Headache/Fever/Mild Pain (1-3) Al Hydroxide/Mg Hydroxide (Maalox) 30 ml PO Q8H PRN PRN Reason: Heartburn or Indigestion Last Admin: 06/04/19 12:14 Dose: 30 ml Aspirin (Aspirin) 325 mg PO DAILY [facility] Last Admin: 06/04/19 08:44 Dose: 325 mg Atorvastatin Calcium (Lipitor) 80 mg PO [facility] Carvedilol (Coreg) 6.25 mg PO BID [facility] Last Admin: 06/04/19 09:07 Dose: Not Given Clopidogrel Bisulfate (Plavix) 75 mg PO DAILY [facility] Last Admin: 06/04/19 09:09 Dose: 75 mg Famotidine (Pepcid) 20 mg PO DAILY [facility] Famotidine (Pepcid) 20 mg PO NOW [facility] Stop: 06/04/19 14:15 Last Admin: 06/04/19 12:14 Dose: 20 mg Furosemide (Lasix) 40 mg PO DAILY [facility] Last Admin: 06/04/19 08:45 Dose: 40 mg Hydralazine HCl (Apresoline) 50 mg PO TID [facility] Last Admin: 06/04/19 08:43 Dose: 50 mg Isosorbide Mononitrate (Imdur) 60 mg PO BID [facility] Last Admin: 06/04/19 09:07 Dose: Not Given Lisinopril (Zestril) 40 mg PO DAILY [facility] Last Admin: 06/04/19 09:08 Dose: Not Given Nitroglycerin (Nitrostat) 0.4 mg SL ASDIR PRN PRN Reason: Chest Pain Last Admin: 06/04/19 03:37 Dose: 0.4 mg Ranolazine (Ranexa) 1,000 mg PO BID [facility] Ranolazine (Ranexa) 500 mg PO ONE [facility] Sertraline HCl (Zoloft) 150 mg PO DAILY [facility] Last Admin: 06/04/19 08:44 Dose: 150 mg Sodium Chloride (Flush - Normal Saline) 10 ml IVF Q12HR PRN PRN Reason: Saline Flush Sodium Chloride (Flush - Normal Saline) 10 ml IVF PRN PRN PRN Reason: Saline Flush Vital Signs & Weight: Vital Signs Temp Pulse Resp BP Pulse Ox 06/04/19 11:06 97.8 F 72 20 130/75 98 06/04/19 08:45 78 06/04/19 08:43 78 06/04/19 07:21 98.0 F 78 18 124/68 97 06/04/19 03:27 98.1 F 78 16 146/70 H 96 Admit Weight 131 lb 14.4 oz Weight 131 lb 14.4 oz - Physical Exam General: alert & oriented x3 HEENT: mucus membranes moist Neck: supple neck Cardiac: regular rate and rhythm, S1/S2 Lungs: clear to auscultation, decreased breath sounds Neuro: cranial nerve 2-12 intact Extremities: no edema Skin: clear Musculoskeletal: normal range of motion - Labs Result Diagrams: 06/04/19 02:01 06/04/19 02:01 Troponin/CKMB Troponin I 0.021 ng/mL (< 0.028) 06/04/19 04:28 - Telemetry Sinus rhythms and dysrhythmias: sinus rhythm - Assessment/Plan Assessment/Plan: 1. Chest pain - trop have been stable this admission. Will increase Ranexa to 1000mg BID; On Coreg 6.25mg BID, Plavix, ASA, and Lisinopril. 2. CAD with hx of CABG in 2011 and s/p LHC in 07/2017 with severe CAD - cont. medical tx only for now. on BBlocker, ZENY, ASA, Plavix, and Statin 3. HTN - stable with current med 4. Chronic diastolic HF 5. Prox Afib in 12/2018 - remains in SR 6. HLD 7. Ex-tobacco and Ilicit drug abuse - the pt cont smoking ilicit drug, discussed cessation MAR reviewed * Per the pt, he has an appt with [employer] next month for disability application Pt. seen and eval. by me. I agree with the A/P by the MEDICAL SUPPLY TECHNICIAN. He has inoperable CAD and severe PVD. He likel;y had chest pain yesterday after not being able to keep his medications down. He has been pain free today and the CIE's are positive for a Type II OK. They are trending down. If he remains stable then home tomorrow. We will increase the Ranexa.
--- NOTE | 2019-06-04 13:33 | PDOC.HOSPP ---
- Subjective Encounter Date: 06/04/19 Encounter Time: 09:40 Subjective: dhaval free this am. intermittent since discharge after last admission, has home cardiac meds and compliant in taking them. consulted his cardiologyst, Dr. Stewart. - Objective Vital Signs & Weight: Vital Signs (12 hours) Temp Pulse Resp BP Pulse Ox 06/04/19 11:06 97.8 F 72 20 130/75 98 06/04/19 08:45 78 06/04/19 08:43 78 06/04/19 07:21 98.0 F 78 18 124/68 97 06/04/19 03:27 98.1 F 78 16 146/70 H 96 Weight Admit Weight 131 lb 14.4 oz Weight 131 lb 14.4 oz I&O: 06/03/19 06/04/19 06/05/19 06:59 06:59 06:59 Output Total 150 Balance -150 Result Diagrams: 06/04/19 02:01 06/04/19 02:01 Hospitalist ROS - Medication Medications: Active Medications Generic Name Dose Route Start Last Admin Trade Name Freq PRN Reason Stop Dose Admin Al Hydroxide/Mg Hydroxide 30 ml 06/04/19 12:11 06/04/19 12:14 Maalox PO 30 ml Q8H PRN Administration Heartburn or Indigestion Aspirin 325 mg 06/04/19 09:00 06/04/19 08:44 Aspirin PO 325 mg DAILY [facility] Administration Carvedilol 6.25 mg 06/04/19 09:00 06/04/19 09:07 Coreg PO Not Given BID [facility] Clopidogrel Bisulfate 75 mg 06/04/19 09:00 06/04/19 09:09 Plavix PO 75 mg DAILY [facility] Administration Famotidine 20 mg 06/04/19 12:15 06/04/19 12:14 Pepcid PO 06/04/19 14:15 20 mg NOW [facility] Administration Furosemide 40 mg 06/04/19 09:00 06/04/19 08:45 Lasix PO 40 mg DAILY [facility] Administration Hydralazine HCl 50 mg 06/04/19 09:00 06/04/19 08:43 Apresoline PO 50 mg TID [facility] Administration Isosorbide Mononitrate 60 mg 06/04/19 09:00 06/04/19 09:07 Imdur PO Not Given BID [facility] Lisinopril 40 mg 06/04/19 09:00 06/04/19 09:08 Zestril PO Not Given DAILY [facility] Nitroglycerin 0.4 mg 06/04/19 01:46 06/04/19 03:37 Nitrostat SL 0.4 mg ASDIR PRN Administration Chest Pain Sertraline HCl 150 mg 06/04/19 09:00 06/04/19 08:44 Zoloft PO 150 mg DAILY [facility] Administration - Exam General Appearance: NAD, awake alert Eye: PERRL ENT: normocephalic atraumatic Neck: supple Heart: RRR Respiratory: CTAB, normal chest expansion Gastrointestinal: soft, normal bowel sounds Hosp A/P - Plan hx o f MVD - cAD CABG in 2011 and s/p LHC in 07/2017 with severe CAD nOT amenable for sux intervention -appreicate cardiology visit - ranexa dose increased and cw coreg, imdur, asa,plavix and acei, and statin - paroxysmal afib - in SR and not on aC HLP- on lipitor depression - on zoloft HTN - meds titrated as above full code.
--- NOTE | 2019-06-04 15:42 | PDOC.PALCO ---
Palliative Care Consult - Consult Details Requesting Physician: Faith CHAMBERLAIN Reason for Consult: goals of care, complex decision-making Family Members Present: none - Pertinent HPI 53 year old male with significant cardiovascular history. Recent hospitalization, patient is not a candidate for surgical intervention. Onset of cheat pain at him in the evening 06/01 took nitro and received relief and went to sleep. Another onset of chest pain in the morning of 06/02, took his medications and although his pain improved he noted his systolic blood pressure to be over 200, day progressed with another episode of chest pain that was not relieved with nausea and vomiting. Took nitro and EMS was called, transported to emergency room for further evaluation. Admitted for further evaluation and rule out of acute coronary syndrome. Patient resides in a private home with his who would be his MPOA. Hopes to apply for social security soon, states his has currently become unemployed. - Pertinent PMH CAD, CHF, HTN, HDL, Tobacco use, renal stenosis, depression, anxiety - Social History Smoking Status: Current every day smoker Smoking: cigarettes Alcohol Use: none Drug Use History: pt denies any use Living Situation: - Medications MAR Reviewed: Yes - Allergies Allergies/Adverse Reactions: Allergies Allergy/AdvReac Type Severity Reaction Status Date / Time No Known Drug Allergies Allergy Verified 06/04/19 00:16 - Subjective Alert, denies chest pain at time of assessment. - ROS Constitutional: alert, weakness Eyes: other (denies visual changes) ENT: other (denies difficulity swallowing, congestion) Respiratory: shortness of breath with extertion, other (negative for cough, wheezing) Cardiology: light headedness, other (negative for chest pain, palpitations) Gastrointestinal: constipation, other (negative for nausea/vomiting at time of assessment) Genitourinary: other (negative for dysuria, hematuria) Musculoskeletal: arthritis/arthralgias Neurological: weakness Psychological: anxiety, depression, insomia - Objective Vital Signs: Vital Signs - Most Recent Temp Pulse Resp BP Pulse Ox 98.0 F 67 18 133/68 98 06/04/19 14:56 06/04/19 14:56 06/04/19 14:56 06/04/19 14:56 06/04/19 14:56 Palliative Performance Scale: 50 - Physical Exam Constitutional: cachectic, ill appearing HEENT: EOMI, moist MMs, sclera anicteric, poor dentition Deviation from normal: Intermittant expiratory wheeze base, shortness of breath w/extensive conver Cardiovascular: RRR Gastrointestinal: continent, non-tender, no distention Genitourinary: continent Musculoskeletal: no cyanosis, no edema Neurology: moves all 4 limbs, no focal deficits Skin: cap refill <2 seconds, no lesions, no rash Psychiatric: A&O x 3, depressed - Problem List (1) Palliative care encounter Code(s): Z51.5 - ENCOUNTER FOR PALLIATIVE CARE Current Visit: Yes Status: Acute (2) Depression Code(s): F32.9 - MAJOR DEPRESSIVE DISORDER, SINGLE EPISODE, UNSPECIFIED Current Visit: Yes Status: Acute (3) Insomnia Code(s): G47.00 - INSOMNIA, UNSPECIFIED Current Visit: Yes Status: Acute (4) Acute on chronic diastolic CHF (congestive heart failure) Code(s): I50.33 - ACUTE ON CHRONIC DIASTOLIC (CONGESTIVE) HEART FAILURE Current Visit: No Status: Acute (5) Chest pain Code(s): R07.9 - CHEST PAIN, UNSPECIFIED Current Visit: No Status: Acute Qualifiers: Chest pain type: precordial pain Qualified Code(s): R07.2 - Precordial pain (6) CAD (coronary artery disease) Code(s): I25.10 - ATHSCL HEART DISEASE OF [place] CORONARY ARTERY W/O ANG PCTRS Current Visit: No Status: Chronic Qualifiers: Coronary Disease-Associated Artery/Lesion type: bypass graft [place] vs. transplanted heart: [place] heart Associated angina: with stable angina Qualified Code(s): I25.708 - Atherosclerosis of coronary artery bypass graft(s) , unspecified, with other forms of angina pectoris (7) HTN (hypertension) Code(s): I10 - ESSENTIAL (PRIMARY) HYPERTENSION Current Visit: No Status: Chronic Qualifiers: Hypertension type: essential hypertension Qualified Code(s): I10 - Essential (primary) hypertension (8) Tobacco abuse Code(s): Z72.0 - TOBACCO USE Current Visit: No Status: Chronic - Plan/Recommendations Plan: Introduced palliative care to patient. Discussed disease trajectory of cardiac disease. Symptom management in relation to shortness of breath. States he has quit smoking but vague on time frame, states he chelly with stress by playing games on his phone. Favorite activities are fishing and watching car racing. *Expressed depression, reviewed medications encouraged to take Zoloft as directed at discharge *Discussed financial limitations in obtaining medications he takes. * In addressing Goal of care related to disease trajectory it was introduced that there may come a time when Hospice would be appropriate. He could continue medications, but would not seek care aggressively to treat cardiac complaints. *Wishes to continue aggressive measures as needed and remain with full resuscitative measures if needed. Encouraged Mr Justin to visit with his and discuss his wishes should he ever not be able to express them and she needs to act on his behalf. Roosevelt Chaudhary cigar packer and grader to also follow patient, please refer to her note [90] minutes spent on this encounter with >50% of the time in counseling and coordination of care. Thank you for this very appropriate consult.
--- NOTE | 2019-06-04 20:58 | EKG ---
Test Reason : Blood Pressure : / mmHG Vent. Rate : 075 BPM Atrial Rate : 075 BPM P-R Int : 218 ms QRS Dur : 158 ms QT Int : 468 ms P-R-T Axes : 057 170 040 degrees QTc Int : 522 ms Sinus rhythm with 1st degree A-V block Right bundle branch block Abnormal ECG When compared with ECG of 20-MAY-2019 08:49, (Unconfirmed) OR interval has increased Vent. rate has decreased BY 39 BPM T wave inversion less evident in Inferior leads Confirmed by Kat WADE ([id number]) on 06/04/2019 8:58:42 PM Referred By: WILIAM Confirmed By:Kat WADE
[2019-06-04] MEDS ORDERED: Atorvastatin Calcium 40 MG TAB PO SCH (21:00)
[2019-06-04] MEDS ORDERED: Temazepam 15 MG CAP PO PRN (23:23)
[2019-06-05 07:57] VITALS: BP 136/70; TEMP 97.4
[2019-06-05] MEDS ORDERED: Famotidine 20 MG TAB PO SCH (09:00)
[2019-06-05] MEDS: Aspirin 325 MG TAB PO SCH (09:14)
[2019-06-05] MEDS: Carvedilol 6.25 MG TAB PO SCH (09:14)
[2019-06-05] MEDS: hydrALAZINE 25 MG TAB PO SCH (09:15)
[2019-06-05] MEDS: Clopidogrel Bisulfate 75 MG TAB PO SCH (09:15)
[2019-06-05] MEDS: Furosemide 40 MG TAB PO SCH (09:15)
[2019-06-05] MEDS: Lisinopril 20 MG TAB PO SCH (09:16)
[2019-06-05 10:01] LABS: Bacteria/HPF None Seen HPF (None Seen); Bilirubin Negative (Negative); Blood, Urine Negative (Negative); Clarity Clear (Clear); Glucose, Urine (Dipstick) Normal (Negative); Leukocyte Negative Leu/uL (Negative); Nitrite Negative (Negative); Protein, Urine (Dipstick) Negative (Neg-Trace); RBC/HPF 0-3 HPF (0-3); Squamous Epithelial None Seen HPF (0-3); Urobilinogen Normal mg/dL (Less than 2)
[2019-06-05 10:04] LABS: Urine Culture Reflex Yes Yes
--- NOTE | 2019-06-05 11:14 | PDOC.CPN ---
- Subjective Date: 06/05/19 Time: 11:16 Interval history: The pt seen and examined. No overnight events. No cardiac complaints. - Objective Allergies/Adverse Reactions: Allergies Allergy/AdvReac Type Severity Reaction Status Date / Time No Known Drug Allergies Allergy Verified 06/04/19 00:16 Visit Medications: Current Medications Acetaminophen (Tylenol) 650 mg PO Q4H PRN PRN Reason: Headache/Fever/Mild Pain (1-3) Last Admin: 06/04/19 20:30 Dose: 650 mg Acetaminophen (Tylenol) 650 mg [place] Q4H PRN PRN Reason: Headache/Fever/Mild Pain (1-3) Al Hydroxide/Mg Hydroxide (Maalox) 30 ml PO Q8H PRN PRN Reason: Heartburn or Indigestion Last Admin: 06/04/19 12:14 Dose: 30 ml Aspirin (Aspirin) 325 mg PO DAILY [facility] Last Admin: 06/05/19 09:14 Dose: 325 mg Atorvastatin Calcium (Lipitor) 80 mg PO HS [facility] Last Admin: 06/04/19 20:22 Dose: 80 mg Carvedilol (Coreg) 6.25 mg PO BID [facility] Last Admin: 06/05/19 09:14 Dose: 6.25 mg Clopidogrel Bisulfate (Plavix) 75 mg PO DAILY [facility] Last Admin: 06/05/19 09:15 Dose: 75 mg Famotidine (Pepcid) 20 mg PO DAILY [facility] Last Admin: 06/05/19 09:15 Dose: 20 mg Furosemide (Lasix) 40 mg PO DAILY [facility] Last Admin: 06/05/19 09:15 Dose: 40 mg Hydralazine HCl (Apresoline) 50 mg PO TID [facility] Last Admin: 06/05/19 09:15 Dose: 50 mg Isosorbide Mononitrate (Imdur) 120 mg PO BID [facility] Last Admin: 06/05/19 09:16 Dose: 120 mg Lisinopril (Zestril) 40 mg PO DAILY [facility] Last Admin: 06/05/19 09:16 Dose: 40 mg Nitroglycerin (Nitrostat) 0.4 mg SL ASDIR PRN PRN Reason: Chest Pain Last Admin: 06/04/19 03:37 Dose: 0.4 mg Ranolazine (Ranexa) 1,000 mg PO BID [facility] Last Admin: 06/05/19 09:16 Dose: 1,000 mg Sertraline HCl (Zoloft) 150 mg PO DAILY [facility] Last Admin: 06/05/19 09:17 Dose: 150 mg Sodium Chloride (Flush - Normal Saline) 10 ml IVF Q12HR PRN PRN Reason: Saline Flush Last Admin: 06/04/19 20:23 Dose: 10 ml Sodium Chloride (Flush - Normal Saline) 10 ml IVF PRN PRN PRN Reason: Saline Flush Temazepam (Restoril) 15 mg PO HSPRN PRN PRN Reason: Insomnia Last Admin: 06/05/19 00:28 Dose: 15 mg Vital Signs & Weight: Vital Signs Temp Pulse Resp BP BP Pulse Ox 06/05/19 09:15 70 06/05/19 07:20 97.4 F L 70 16 136/70 98 06/05/19 03:50 97.7 F 70 14 131/71 98 Admit Weight 131 lb 14.4 oz Weight 125 lb 4.8 oz - Physical Exam General: alert & oriented x3 HEENT: mucus membranes moist Neck: supple neck Cardiac: regular rate and rhythm, S1/S2 Lungs: clear to auscultation, decreased breath sounds Neuro: cranial nerve 2-12 intact Abdomen: unremarkable Extremities: no edema Skin: clear Musculoskeletal: normal range of motion - Labs Result Diagrams: 06/04/19 02:01 06/04/19 02:01 Troponin/CKMB Troponin I 0.021 ng/mL (< 0.028) 06/04/19 04:28 - Telemetry Sinus rhythms and dysrhythmias: sinus rhythm - Assessment/Plan Assessment/Plan: 1. Chest pain - trop have been stable this admission. stable with Ranexa to 1000mg BID; On Isosorbide 120mg BID, Coreg 6.25mg BID, Plavix, ASA, and Lisinopril. 2. CAD with hx of CABG in 2011 and s/p LHC in 07/2017 with severe CAD - cont. medical tx only for now. on BBlocker, ZENY, ASA, Plavix, and Statin 3. HTN - stable with current med 4. Chronic diastolic HF - stable with RA with current med and Lasix 40mg qd 5. Prox Afib in 12/2018 - remains in SR 6. HLD 7. Ex-tobacco and Ilicit drug abuse - the pt cont smoking ilicit drug, discussed cessation MAR reviewed * Per the pt, he has an appt with Social security next month for disability application * From Cardiac standpoint, the pt is stable to d/c home.
--- NOTE | 2019-06-05 16:27 | DIS ---
DATE OF ADMISSION: 06/03/2019 DATE OF DISCHARGE: 06/05/2019 DISCHARGE DIAGNOSES: 1. Chest pain. 2. Coronary artery disease with history of coronary artery bypass grafting. 3. Hypertension. 4. Nausea and vomiting, resolved. 5. Paroxysmal atrial fibrillation, currently sinus rhythm. HOSPITAL COURSE: The patient is a 53-year-old male who initially presented to the hospital with chest pain. At this time, Cardiology was consulted given his CABG in 2011. He had a left heart catheterization in July of 2017 with severe CAD, recommended medical treatment only. The patient was watched overnight. He was put on aspirin, Plavix, and statin. His chest pain improved. He was able to tolerate his meals. Nausea and vomiting resolved. His initial troponin was 0.021, which actually bumped up to 0.059 and trended down back to 0.021. The patient on discharge was symptoms free of chest pain. However, there was a notation upon reviewing his chart that he has been having an elevated white count. At this time, chest x-ray was reviewed, which did not show anything acute. He did a urine which also just indicated WBCs of 426. The patient is currently asymptomatic in terms of any urinary symptoms. I have recommended him to follow up with his primary in regard to this elevated white count. This could be possibly some myelodysplastic syndrome, may just require some close monitoring. HOME MEDICATIONS: He is going to be on; 1. Plavix 75 mg daily. 2. Ranexa 1000 mg twice a day. 3. Lasix 40 mg daily. 4. Sertraline 150 mg daily. 5. Aspirin 81 mg daily. 6. Atorvastatin 80 mg daily. 7. Carvedilol 6.25 twice a day. 8. Hydralazine 50 mg t.i.d. 9. Isosorbide 120 b.i.d. 10. Lisinopril 40 mg daily. 11. Nitroglycerin as needed. PHYSICAL EXAMINATION: VITAL SIGNS: Temperature of 97.7, on room air, 131/71. GENERAL: He is awake, alert, oriented x3. Does not appear in distress. CVS: S1, S2 present. No murmurs, rubs, or gallops. Again, he will be discharged home with followup with his primary and also Cardiology. Job ID: [id number]
--- NOTE | 2019-06-12 14:48 | EKG ---
Test Reason : Blood Pressure : / mmHG Vent. Rate : 070 BPM Atrial Rate : 070 BPM P-R Int : 216 ms QRS Dur : 174 ms QT Int : 476 ms P-R-T Axes : 072 145 043 degrees QTc Int : 514 ms Sinus rhythm with 1st degree A-V block Right bundle branch block Left posterior fascicular block Bifascicular block Abnormal ECG When compared with ECG of 19-MAY-2019 No changes Confirmed by PAU EWING DO ([id number]), visual effects editor PAIGE SOTO ([id number]) on 06/12/2019 2:48:23 PM Referred By: Confirmed By:PAU EWING DO
== END 2019-06-05 11:28 | disposition home or self-care (01) ==
LOC: ERS 21:55 → 2SW 23:22
PROVIDERS: ADMIT Internal Medicine; ATTEND Internal Medicine
DX: R07.9 Chest pain, unspecified (principal); R11.2 Nausea with vomiting, unspecified; I11.0 Hypertensive heart disease with heart failure; I50.32 Chronic diastolic (congestive) heart failure; I25.10 Atherosclerotic heart disease of native coronary artery without angina pectoris; I48.0 Paroxysmal atrial fibrillation; I08.1 Rheumatic disorders of both mitral and tricuspid valves; F41.9 Anxiety disorder, unspecified; F32.9 Major depressive disorder, single episode, unspecified; F12.10 Cannabis abuse, uncomplicated; D72.829 Elevated white blood cell count, unspecified; Z79.82 Long term (current) use of aspirin; Z79.899 Other long term (current) drug therapy; Z87.891 Personal history of nicotine dependence; Z95.1 Presence of aortocoronary bypass graft; Z95.5 Presence of coronary angioplasty implant and graft
CPT/HCPCS: 36415; 71045; 80048; 80053; 81001; 82550; 83605; 83690; 83735; 84145; 84484; 85025; 87086; 93005; 93010; 96374; G0378; S0028

== ENCOUNTER 2019-08-16 11:29 | Inpatient (IN) | payer MEDICAID, OTHER ==
[~2019-08-16 11:29] MED LIST: Iopamidol-370 76% 500 ML 1 ML ONE
[2019-08-16] MEDS ORDERED: Morphine 4 MG/ML VIAL ONE (11:43)
[2019-08-16] MEDS ORDERED: Ondansetron PF 4 MG/2 ML Vial ONE ×2 (11:43→15:31)
[2019-08-16] MEDS ORDERED: Nitroglycerin 2% Ointment 1 INCH/1 GM Packet ONE (12:36)
[2019-08-16 12:55] LABS: Band 26 % (5-11); Hemoglobin 15.5 g/dL (14.0-18.0); MDiff Complete? YES; Mean Corpuscular HGB CONC 33.8 g/dL (32.0-36.0); Mean Corpuscular Hemoglobin 33.9 pg (27.0-31.0); Metamyelocyte 1 % (0-0); Monocytes 4 % (0-10); Neutrophil 69 % (42-75); Platelet Count 330 thou/uL (130-400); Platelet Morphology Comment Appears Adequate; RBC Morphology Normal; Red Blood Cell (RBC) Count 4.58 mill/uL (4.70-6.10); White Blood Cell (WBC) Count 34.4 thou/uL (4.8-10.8)
[2019-08-16 13:02] LABS: ALT (SGPT) 15 U/L (8-55); AST (SGOT) 36 U/L (5-34); Albumin 4.2 g/dL (3.5-5.0); Alkaline Phosphatase 114 U/L (40-110); Anion Gap 20 mmol/L (10-20); BUN (Urea Nitrogen) 30 mg/dL (8.4-25.7); Bilirubin, Total 0.3 mg/dL (0.2-1.2); Calc. Creatinine Clearance 0 mL/min (70-130); Calcium 9.5 mg/dL (7.8-10.44); Carbon Dioxide 19 mmol/L (22-29); Chloride 103 mmol/L (98-107); Estimated GFR-MDRD 47; Globulin 4.1 g/dL (2.4-3.5); Glucose 128 mg/dL (70-105); Lipase 32 U/L (8-78); Potassium 4.9 mmol/L (3.5-5.1); Protein, Total 8.3 g/dL (6.0-8.3); Sodium 137 mmol/L (136-145)
[2019-08-16 13:23] LABS: CKMB 15.1 ng/mL (0-6.6)
--- NOTE | 2019-08-16 13:34 | RAD ---
AP CHEST: History: Chest pain Comparison: 06-03-2019 FINDINGS: Parenchymal scarring in the peripheral left lung along the pleural surface is again seen with slight retraction of the left hemidiaphragm. The lungs appear otherwise clear. No acute process or interval change. Heart and mediastinum unremarkable with post op sternotomy change. IMPRESSION: Stable chest findings without acute process. POS: AGW
[2019-08-16] MEDS ORDERED: Cefepime 2 GM VIAL ONE (14:01)
[2019-08-16] MEDS ORDERED: Heparin 1,000 UNITS/ML VIAL ONE ×2 (14:01→14:03)
[2019-08-16] MEDS ORDERED: Heparin 25,000 units/D5W 500 ML ONE (14:01)
[2019-08-16] MEDS ORDERED: Morphine 4 MG/ML VIAL SLOW IVP SCH (14:15)
[2019-08-16] MEDS ORDERED: Nitroglycerin 2% Ointment 1 INCH/1 GM Packet TOP SCH ×2 (14:15→17:00)
[2019-08-16] MEDS ORDERED: Aspirin 325 MG TAB PO SCH (14:15)
[2019-08-16] MEDS ORDERED: Ondansetron PF 4 MG/2 ML Vial IVP SCH (14:15)
[2019-08-16] MEDS ORDERED: Vancomycin HCl 750 MG in Sodium Chloride 0.9% 250 ML 250 ML IVPB SCH (14:15)
[2019-08-16] MEDS ORDERED: Cefepime 2 GM in Sodium Chloride 0.9% 100 ML IVPB SCH (15:00)
[2019-08-16 15:18] LABS: INR-International Normal Ratio 0.9; PTT 32.1 sec (22.9-36.1); Prothrombin Time 12.6 sec (12.0-14.7)
[2019-08-16] MEDS ORDERED: Fentanyl 100 MCG/2 ML VIAL ONE (15:31)
[2019-08-16] MEDS ORDERED: Labetalol HCl 100 MG/20 ML VIAL SLOW IVP PRN (16:16)
[2019-08-16] MEDS ORDERED: hydrALAZINE 20 MG/ML VIAL SLOW IVP PRN (16:19)
[2019-08-16] MEDS ORDERED: Nitroglycerin 0.4 MG TAB (25 Tab Bottle) PO PRN (16:20)
[2019-08-16] MEDS ORDERED: Acetaminophen 325 MG TAB PO PRN (16:26)
[2019-08-16] MEDS ORDERED: Calcium Carbonate 500 MG ChewTAB PO PRN (16:26)
[2019-08-16] MEDS ORDERED: hydrALAZINE 25 MG TAB PO SCH (16:30)
[2019-08-16] MEDS ORDERED: Heparin 25,000 units/D5W 500 ML IVPB SCH (16:30)
--- NOTE | 2019-08-16 16:30 | CT ---
CT ABDOMEN AND PELVIS PERFORMED WITH INTRAVENOUS CONTRAST ENHANCEMENT: History: New onset abdominal pain this morning. History of cholecystectomy. Comparison: 11-09-14 CT study FINDINGS: Lung bases show emphysematous lung changes. There is aneurysmal dilatation of the descending thoracic aorta at the level of the esophageal hiatus. AP dimension is approximately 4 cm. This is similar to the previous examination. There is complete occlusion of the aorta with flow into the right renal art yair, but no flow into the left renal artery or at the origins of the celiac or superior mesenteric ar teries, although there is flow within these vessels more distally. Prominent epigastric arteries prov stephanie flow to the lower extremities. These findings all appear stable as compared to the prior exam. Th e left kidney is atrophic and shows diminished profusion. Some of the small bowel loops show fluid wi thin the small bowel. They are not dilated. However, there is a suggestion that there may be some mil d wall thickening. I do not see any fat stranding within the mesenteric fat but given the patient's v ascular status, I cannot exclude this as representing mild bowel wall edema related to ischemia. No s igns for pneumotosis or other findings associated with this. No free fluid. No adenopathy or mass. IMPRESSION: 1. Stable fusiform dilatation of the distal thoracic aorta at the esophageal hiatus and stable appear ance to the occlusion of the infrarenal abdominal aorta as well as origins of the celiac and superior mesenteric arteries. Flow is demonstrated in the right kidney. The left kidney shows diminished perf usion with atrophy. Distal flow is again noted to be through prominent epigastric arteries. 2. Questionable small bowel wall thickening, the possibility of enteritis should be considered. Findi ngs as discussed above. POS: HERMINIA
--- NOTE | 2019-08-16 16:37 | HP ---
PRIMARY CARE PHYSICIAN: Jasper Barton DO PRIMARY SENIOR [employer] DEVELOPER: Tanisha Stewart MD CHIEF COMPLAINT: Nausea and chest discomfort. HISTORY OF PRESENT ILLNESS: The patient is a 54-year-old male with inoperable coronary artery disease, hypertension, paroxysmal atrial fibrillation, presented to the emergency room with above complaints. Over the last 24 hours, the patient has not been feeling well. This morning, he became nauseous and threw up 3 times. The vomitus contained food which he had eaten. Followed by vomiting, he started having chest discomfort that was pressure-like without any radiation. He had some diaphoresis as well. He also complains of abdominal discomfort that is generalized, that has been on and off for last few days. The abdominal pain got worse today. It is moderate in intensity and worse on palpation. The chest discomfort was constant without any aggravating or relieving factor. STEMI alert was called initially that was later on canceled per Cardiology. His EKG in the emergency room showed sinus tachycardia with right bundle-branch block with nonspecific ST-T wave changes. PAST MEDICAL HISTORY: 1. Coronary artery disease, status post CABG. 2. Hypertension. 3. Chronic diastolic heart failure. 4. GERD. 5. History of myocardial infarction. 6. Peripheral vascular disease. 7. Dyslipidemia. 8. Tobacco dependence. 9. Renal stenosis. 10. Anxiety. 11. Depression. PAST SURGICAL HISTORY: 1. History of coronary artery bypass grafting. 2. Coronary stents. 3. Cholecystectomy. ALLERGIES: THE PATIENT DENIES ANY DRUG ALLERGIES. CURRENT HOME MEDICATIONS: We will try to obtain accurate list from the pharmacy. He does not have a list at this time. SOCIAL HISTORY: The patient currently lives at home. He was under Hospice. He revoked Hospice today. He denies current use of smoking, alcohol, or drug use. FAMILY HISTORY: Positive for heart disease. REVIEW OF SYSTEMS: All other review of systems was reviewed and was found negative. PHYSICAL EXAMINATION: VITAL SIGNS: Temperature 97.5, pulse rate of 113, blood pressure of 180/106 with O2 saturation of 100% on room air. GENERAL: A 54-year-old male in mild distress due to abdominal discomfort. Chest discomfort improved with nitroglycerin patch. HEENT: Head, atraumatic and normocephalic. Sclerae are anicteric. Moist mucous membranes. No oral lesion. NECK: Supple. No JVD appreciated. No carotid bruit. LUNGS: Clear to auscultation bilaterally. No wheezing, rales, or rhonchi. HEART: S1 and S2 present, tachycardic. Healed midline scar from previous CABG. No heaves or pulsation. ABDOMEN: Soft. There is mild generalized tenderness without any rebound or guarding. No costovertebral angle tenderness. EXTREMITIES: No edema or calf tenderness. NEUROLOGIC: Grossly nonfocal. Moves all 4 extremities. PSYCHIATRY: Alert, awake, and oriented x3. SKIN: Warm and dry. LYMPH NODES: No palpable lymph nodes in the neck. PERIPHERAL VASCULAR: Radial pulses are palpable bilaterally. MUSCULOSKELETAL: No joint swelling or tenderness. LABORATORY FINDINGS: CBC showed WBC 34.4 with 26% neutrophils, hemoglobin 15.5, hematocrit 45.8, MCV 100. Chemistry showed sodium 137, potassium 4.9, chloride 109, bicarb 19, BUN 30, creatinine 1.55. BNP was 515. Troponin 1.1, CK-MB 15.1. Lactic acid 1.6. Chest x-ray by my review was negative for infiltrate or edema. CT scan of the abdomen and pelvis has been obtained. Report is pending at this time. EKG by my review as discussed above. IMPRESSION: 1. Non-ST elevation myocardial infarction. 2. Abdominal discomfort with nausea and vomiting of unclear etiology. 3. Significant leukocytosis with bandemia. Etiology is unclear. 4. Coronary artery disease, status post coronary artery bypass grafting. 5. Paroxysmal atrial fibrillation. 6. Anxiety. 7. Chronic diastolic heart failure. 8. Uncontrolled hypertension. 9. Acute kidney injury on chronic kidney disease, stage 2. PLAN: The patient will be monitored on the telemetry unit. We will continue to trend his troponin. We will continue nitroglycerin patch. Continue aspirin and Plavix. He is currently on heparin drip. We will add p.r.n. antihypertensives. We will resume home medications once verified. Cardiology will be consulted. The patient will require 2 to 3 days for stabilization. Job ID: [id number]
[2019-08-16 16:47] LABS: Hemoglobin 15.8 g/dL (14.0-18.0); Platelet Count 318 thou/uL (130-400)
[2019-08-16 16:49] LABS: Troponin I 5.155 ng/mL (< 0.028)
[2019-08-16 18:47] VITALS: BMI 19.5
[2019-08-16] MEDS: Carvedilol 6.25 MG TAB PO SCH (19:00)
[2019-08-16] MEDS: Morphine 2 MG/ML SYRINGE SLOW IVP PRN (19:02)
[2019-08-16] MEDS: Heparin 10,000 UNITS/ 10 ML VIAL SLOW IVP SCH (19:31)
[2019-08-16] MEDS: metroNIDAZOLE 500 MG in Premix Bag 1 BAG IVPB SCH (20:12)
[2019-08-16] MEDS: Famotidine 20 MG TAB PO SCH (20:13)
[2019-08-16] MEDS: hydrALAZINE 25 MG TAB PO SCH (20:13)
[2019-08-16] MEDS: Atorvastatin Calcium 40 MG TAB PO SCH (20:13)
[2019-08-16] MEDS ORDERED: Fentanyl 100 MCG/2 ML VIAL SLOW IVP SCH (22:00)
[2019-08-16] MEDS: Nitroglycerin 2% Ointment 1 INCH/1 GM Packet TOP SCH (23:53)
[2019-08-17 04:42] LABS: #Basophils 0.1 thou/uL (0.0-0.2); #Monocytes 1.9 thou/uL (0.11-0.59); #Neutrophils 24.7 thou/uL (1.40-6.50); %Basophils 0.2 % (0.0-1.0); %Eosinophils 0.1 % (0.0-10.0); %Monocytes 6.5 % (0.0-10.0); %Neutrophils 86.2 % (42.0-75.0); Mean Corpuscular Hemoglobin 34.1 pg (27.0-31.0); Mean Platelet Volume 9.5 fL (7.4-10.4); Platelet Count 271 thou/uL (130-400); White Blood Cell (WBC) Count 28.7 thou/uL (4.8-10.8)
[2019-08-17 05:03] LABS: Anion Gap 13 mmol/L (10-20); BUN (Urea Nitrogen) 33 mg/dL (8.4-25.7); Calc. Creatinine Clearance 65 mL/min (70-130); Calcium 8.5 mg/dL (7.8-10.44); Carbon Dioxide 22 mmol/L (22-29); Chloride 105 mmol/L (98-107); Estimated GFR-MDRD 69; Glucose 98 mg/dL (70-105); Potassium 3.9 mmol/L (3.5-5.1); Sodium 136 mmol/L (136-145)
[2019-08-17] MEDS: Morphine 2 MG/ML SYRINGE SLOW IVP PRN (05:12)
[2019-08-17] MEDS: Nitroglycerin 2% Ointment 1 INCH/1 GM Packet TOP SCH ×4 (05:14→23:33)
[2019-08-17] MEDS: metroNIDAZOLE 500 MG in Premix Bag 1 BAG IVPB SCH ×2 (05:14→12:49)
[2019-08-17 05:35] LABS: CKMB 49.1 ng/mL (0-6.6)
[2019-08-17] MEDS: hydrALAZINE 25 MG TAB PO SCH ×4 (08:25→20:04)
[2019-08-17] MEDS: Aspirin 81 mg Enteric Coated Tablet PO SCH (08:26)
[2019-08-17] MEDS: Clopidogrel Bisulfate 75 MG TAB PO SCH (08:26)
[2019-08-17] MEDS: Saccharomyces boulardii 250 MG CAP PO SCH (08:26)
[2019-08-17] MEDS: Famotidine 20 MG TAB PO SCH ×2 (08:26→20:05)
[2019-08-17] MEDS: Carvedilol 6.25 MG TAB PO SCH ×2 (08:26→16:40)
[2019-08-17] MEDS: Heparin 10,000 UNITS/ 10 ML VIAL SLOW IVP SCH (08:30)
[2019-08-17] MEDS: Senokot S 8.6-50 MG TAB PO PRN (12:50)
[2019-08-17 13:52] LABS: CKMB 24.2 ng/mL (0-6.6); Troponin I 7.862 ng/mL (< 0.028)
[2019-08-17 14:06] LABS: SARS-CoV-2 MS2 Positive; SARS-CoV-2 N Gene Negative; SARS-CoV-2 S Gene Negative; SARS-CoV-2 orf1ab Negative
--- NOTE | 2019-08-17 14:24 | CON ---
DATE OF CONSULTATION: REASON FOR CONSULTATION: Elevated troponin. PRIMARY PHP [employer] DEVELOPER: Tanisha Stewart MD HISTORY OF PRESENT ILLNESS: Mr. Justin is an unfortunate 54-year-old gentleman with history of CAD status post bypass surgery. He has severe underlying coronary artery disease. All nondalton vessels are occluded. He has a significant disease present in his previous vein grafts. He has a completely occluded aorta. He last had an angiogram done last year and was not felt to be an appropriate PTCA or stent candidate. Approach was via the left radial artery. He recently presented with abdominal discomfort. He states he has associated chest pain. He had nausea and no vomiting. Once the abdominal pain is subsided chest pain. He has not had chest pain since early this morning. His troponins were trending up, but are now trending down. His peak CK-MB is 49 and is now down to 24.2. No acute ST-T wave changes are present. PAST MEDICAL HISTORY: As described above including hypertension, hyperlipidemia, cholecystectomy, and renal artery stenosis. ALLERGIES: NONE. REVIEW OF SYSTEMS: A 10-point review of systems is reviewed as above, otherwise negative. CURRENT HOME MEDICATIONS: 1. Pepcid AC b.i.d. 2. Sucralfate. 3. MiraLAX. 4. Tramadol. 5. Docusate. 6. Plavix. 7. Carvedilol. 8. Zestril. 9. Isosorbide. 10. Ranexa. 11. Hydralazine. PHYSICAL EXAMINATION: GENERAL: He does appear much older than stated age. VITAL SIGNS: Blood pressure 100/59, pulse , and temperature 99.4. NEUROLOGIC: The patient is alert and oriented x3 with no focal neurologic deficits. HEENT: Sclerae without icterus. Mouth has moist mucous membranes with normal pallor. NECK: No JVD. Carotid upstroke brisk. No bruits bilaterally. LUNGS: Clear to auscultation with unlabored respirations. BACK: No scoliosis or kyphosis. CARDIAC: Regular rate and rhythm with normal S1 and S2. No S3 or S4 noted. No significant rubs, murmurs, thrills, or gallops noted throughout the precordium. PMI is not displaced. There is no parasternal heave. ABDOMEN: Soft, nontender, nondistended. No peritoneal signs present. No hepatosplenomegaly. No abnormal striae. EXTREMITIES: 2+ femoral and 2+ dorsalis pedis pulses. No cyanosis, clubbing, or edema. SKIN: No gross abnormalities. PERTINENT LABORATORY DATA: As described above. Creatinine 1.11, hemoglobin 14, and hematocrit 41. IMPRESSION: 1. Non-Q-wave myocardial infarction. 2. Abdominal discomfort. 3. Severe coronary artery disease. RECOMMENDATIONS: Mr. Justin's symptoms were much improved. He has not been felt to be an appropriate surgical or percutaneous candidate. We will continue to treat medically. He is currently on IV heparin and we will continue. I would recommend switching to Lovenox 1 mg/kg subcu b.i.d. We will otherwise continue current medical therapy as prescribed. He is currently on Imdur in addition to beta-herbie therapy. We will also add statin therapy. We would see cause of his abdominal discomfort. This may be anginal equivalent, but also may be [id number]. Job ID: [id number]
[2019-08-17] MEDS ORDERED: Cefepime 2 GM in Sodium Chloride 0.9% 100 ML IVPB SCH (15:00)
--- NOTE | 2019-08-17 16:40 | PDOC.HOSPP ---
- Subjective Encounter Date: 08/17/19 Encounter Time: 09:00 Subjective: no overnight events. This morning, chest pain significantly improved. - Objective Vital Signs & Weight: Vital Signs (12 hours) Temp Pulse Resp BP Pulse Ox 08/17/19 12:56 99.4 F 78 18 100/59 L 96 08/17/19 08:43 98.9 F 82 16 109/63 95 08/17/19 05:25 97.7 F 84 18 129/72 93 L Weight Admit Weight 132 lb 9.6 oz Weight 132 lb 8 oz I&O: 08/16/19 08/17/19 08/18/19 06:59 06:59 06:59 Intake Total 1200 Output Total 750 Balance 450 Result Diagrams: 08/17/19 04:30 08/17/19 04:30 Hospitalist ROS - Review of Systems Respiratory: denies: cough, dry, shortness of breath, hemoptysis, SOB with excertion, pleuritic pain, sputum, wheezing, other Cardiovascular: denies: chest pain, palpitations, orthopnea, paroxysmal noc. dyspnea, edema, light headedness, other Gastrointestinal: denies: nausea, vomiting, abdominal pain, diarrhea, constipation, melena, hematochezia, other Genitourinary: denies: dysuria, frequency, incontinence, hematuria, retention, other - Medication Medications: Active Medications Generic Name Dose Route Start Last Admin Trade Name Freq PRN Reason Stop Dose Admin Aspirin 81 mg 08/17/19 09:00 08/17/19 08:26 Ecotrin PO 81 mg DAILY MARCELLA Administration Atorvastatin Calcium 40 mg 08/16/19 21:00 08/16/19 20:13 Lipitor PO 40 mg HS MARCELLA Administration Carvedilol 12.5 mg 08/16/19 17:00 08/17/19 08:26 Coreg PO 12.5 mg BID-WM MARCELLA Administration Clopidogrel Bisulfate 75 mg 08/17/19 09:00 08/17/19 08:26 Plavix PO 75 mg DAILY MARCELLA Administration Famotidine 20 mg 08/16/19 21:00 08/17/19 08:26 Pepcid PO 20 mg BID MARCELLA Administration Heparin Sodium (Porcine) 0 units 08/16/19 14:15 08/17/19 08:30 Heparin 1,000 Units/Ml (10 Ml) SLOW IVP 1.665 ml WILLCALL MARCELLA Administration Hydralazine HCl 75 mg 08/16/19 21:00 08/17/19 16:24 Apresoline PO Not Given TID MARCLELA Metronidazole 500 mg/ Device 100 mls @ 100 mls/hr 08/16/19 20:00 08/17/19 12: 49 IVPB 100 mls 0400,1200,2000 MARCELLA Administration Cefepime HCl 2 gm/ Sodium 100 mls @ 200 mls/hr 08/17/19 15:00 08/17/19 16:24 Chloride IVPB 100 mls 1500 MARCELLA Administration Nitroglycerin 1 inch 08/16/19 23:59 08/17/19 12:49 Nitro-Bid 2% Ointment TOP 1 inch Q6HR MARCELLA Administration Ranolazine 1,000 mg 08/16/19 21:00 08/17/19 08:26 Ranexa PO 1,000 mg BID MARCELLA Administration Saccharomyces Boulardii 250 mg 08/17/19 09:00 08/17/19 08:26 Florastor PO 250 mg DAILY MARCELLA Administration Senna/Docusate Sodium 2 tab 08/16/19 16:26 08/17/19 12:50 Senokot S PO 2 tab BIDPRN PRN Administration Constipation - Exam General Appearance: NAD, awake alert Heart: RRR, no murmur, no gallops, no rubs Respiratory: CTAB, no wheezes, no rales, no ronchi Gastrointestinal: soft, non-tender, non-distended, normal bowel sounds Extremities: no edema Psychiatric: normal affect, normal behavior, A&O x 3 Hosp A/P - Plan #NSTEMI -continue medical management as per cardiology #P. afib currently sinus continue beta herbie and anticoagulation #PVD continue plavix Full code per patient wishes
[2019-08-17] MEDS ORDERED: Enoxaparin Sodium 60 MG/0.6 ML SYRINGE SC SCH (17:00)
[2019-08-17] MEDS ORDERED: Lorazepam 0.5 MG TAB PO SCH (20:00)
[2019-08-17] MEDS ORDERED: traMADol HCl 50 MG TAB PO SCH (20:00)
[2019-08-17] MEDS: Atorvastatin Calcium 40 MG TAB PO SCH (20:04)
[2019-08-17] MEDS: Enoxaparin Sodium 60 MG/0.6 ML SYRINGE SC SCH (20:05)
[2019-08-17 21:00] LABS: Critical Call Chem Troponin I RESULT DECREASING
[2019-08-17 21:18] LABS: CKMB 12.1 ng/mL (0-6.6); Critical Call CKMB RESULT DECREASING
[2019-08-17] MEDS: guaiFENesin 200 MG TAB PO PRN (21:51)
[2019-08-17 22:17] LABS: Bacteria/HPF None Seen HPF (None Seen); Bilirubin Negative (Negative); Blood, Urine Negative (Negative); Clarity Clear (Clear); Glucose, Urine (Dipstick) Normal (Negative); Leukocyte 75 Leu/uL (Negative); Nitrite Negative (Negative); Protein, Urine (Dipstick) 30 mg/dL (Neg-Trace); RBC/HPF 0-3 HPF (0-3); Squamous Epithelial None Seen HPF (0-3); Urobilinogen Normal mg/dL (Less than 2)
[2019-08-17 22:21] LABS: Urine Culture Reflex Yes Yes
[2019-08-18 04:33] LABS: Anion Gap 14 mmol/L (10-20); BUN (Urea Nitrogen) 30 mg/dL (8.4-25.7); Calc. Creatinine Clearance 65 mL/min (70-130); Calcium 8.5 mg/dL (7.8-10.44); Carbon Dioxide 20 mmol/L (22-29); Chloride 102 mmol/L (98-107); Estimated GFR-MDRD 70; Glucose 115 mg/dL (70-105); Potassium 4.2 mmol/L (3.5-5.1); Sodium 132 mmol/L (136-145)
[2019-08-18 05:00] LABS: #Lymphocytes 1.3 thou/uL (1.20-3.40); #Neutrophils 21.2 thou/uL (1.40-6.50); %Basophils 0.1 % (0.0-1.0); %Eosinophils 0.1 % (0.0-10.0); %Lymphocytes 5.3 % (21.0-51.0); %Monocytes 8.3 % (0.0-10.0); %Neutrophils 86.1 % (42.0-75.0); Hemoglobin 12.4 g/dL (14.0-18.0); Mean Corpuscular HGB CONC 31.7 g/dL (32.0-36.0); Mean Corpuscular Hemoglobin 31.5 pg (27.0-31.0); Mean Corpuscular Volume 99.5 fL (78.0-98.0); Mean Platelet Volume 10.5 fL (7.4-10.4); Platelet Count 226 thou/uL (130-400); Red Blood Cell (RBC) Count 3.94 mill/uL (4.70-6.10); White Blood Cell (WBC) Count 24.6 thou/uL (4.8-10.8)
[2019-08-18 05:39] LABS: Band 20 % (5-11); Lymphocytes 7 % (21-51); Monocytes 3 % (0-10); Neutrophil 70 % (42-75)
[2019-08-18] MEDS: Nitroglycerin 2% Ointment 1 INCH/1 GM Packet TOP SCH ×4 (05:43→23:43)
[2019-08-18 05:44] LABS: MDiff Complete? YES
[2019-08-18] MEDS: Famotidine 20 MG TAB PO SCH ×2 (08:24→20:26)
[2019-08-18] MEDS: guaiFENesin 200 MG TAB PO PRN (08:24)
[2019-08-18] MEDS: Senokot S 8.6-50 MG TAB PO PRN (08:24)
[2019-08-18] MEDS: Aspirin 81 mg Enteric Coated Tablet PO SCH (08:25)
[2019-08-18] MEDS: Carvedilol 6.25 MG TAB PO SCH ×2 (08:25→15:56)
[2019-08-18] MEDS: Saccharomyces boulardii 250 MG CAP PO SCH (08:25)
[2019-08-18] MEDS: Clopidogrel Bisulfate 75 MG TAB PO SCH (08:25)
[2019-08-18] MEDS: hydrALAZINE 25 MG TAB PO SCH ×3 (08:25→20:26)
[2019-08-18] MEDS: Enoxaparin Sodium 60 MG/0.6 ML SYRINGE SC SCH ×2 (08:26→20:27)
[2019-08-18] MEDS ORDERED: Simethicone Chewable 80 MG TAB PO PRN (13:29)
[2019-08-18] MEDS ORDERED: Polyethylene Glycol 3350 17 GM Packet PO PRN (13:29)
[2019-08-18] MEDS ORDERED: Furosemide 40 MG TAB PO SCH (14:00)
[2019-08-18] MEDS ORDERED: traMADol HCl 50 MG TAB PO PRN (14:25)
--- NOTE | 2019-08-18 15:14 | PDOC.HOSPP ---
- Subjective Encounter Date: 08/18/19 Encounter Time: 11:30 Subjective: Patient seen and examined for NSTEMI. No new CP. Abd villeda improving. No N/V. No new complaints. No overnight events - Objective Vital Signs & Weight: Vital Signs (12 hours) Temp Pulse Resp BP BP Pulse Ox 08/18/19 13:58 153/74 H 08/18/19 11:06 98.1 F 82 13 141/75 H 97 08/18/19 08:25 88 97 08/18/19 08:13 99.3 F 88 18 139/81 97 08/18/19 03:45 98.4 F Weight Admit Weight 132 lb 9.6 oz Weight 124 lb 11.2 oz I&O: 08/17/19 08/18/19 08/19/19 06:59 06:59 06:59 Intake Total 1200 1230 Output Total 750 1500 Balance 450 -270 Result Diagrams: 08/18/19 03:53 08/18/19 03:53 EKG Reviewed by me: Yes (Tele SR) Hospitalist ROS - Review of Systems Respiratory: denies: cough, dry, shortness of breath, hemoptysis, SOB with excertion, pleuritic pain, sputum, wheezing, other Cardiovascular: denies: chest pain, palpitations, orthopnea, paroxysmal noc. dyspnea, edema, light headedness, other Gastrointestinal: denies: nausea, vomiting, abdominal pain, diarrhea, constipation, melena, hematochezia, other - Medication Medications: Active Medications Generic Name Dose Route Start Last Admin Trade Name Freq PRN Reason Stop Dose Admin Aspirin 81 mg 08/17/19 09:00 08/18/19 08:25 Ecotrin PO 81 mg DAILY MARCELLA Administration Atorvastatin Calcium 40 mg 08/16/19 21:00 08/17/19 20:04 Lipitor PO 40 mg HS MARCELLA Administration Calcium Carbonate 1,000 mg 08/16/19 16:26 08/18/19 11:14 Tums PO 1,000 mg Q4H PRN Administration Heartburn or Indigestion Carvedilol 12.5 mg 08/16/19 17:00 08/18/19 08:25 Coreg PO 12.5 mg BID-WM MARCELLA Administration Clopidogrel Bisulfate 75 mg 08/17/19 09:00 08/18/19 08:25 Plavix PO 75 mg DAILY MARCELLA Administration Enoxaparin Sodium 60 mg 08/17/19 21:00 08/18/19 08:26 Lovenox SC 60 mg 0900,2100 MARCELLA Administration Famotidine 20 mg 08/16/19 21:00 08/18/19 08:24 Pepcid PO 20 mg BID MARCELLA Administration Furosemide 40 mg 08/18/19 14:00 08/18/19 13:55 Lasix PO 08/18/19 23:59 40 mg 0900,1400 MARCELLA Administration Guaifenesin 200 mg 08/17/19 21:28 08/18/19 08:24 Organ-I Nr PO 200 mg Q4H PRN Administration Congestion Hydralazine HCl 75 mg 08/16/19 21:00 08/18/19 13:55 Apresoline PO 75 mg TID MARCELLA Administration Nitroglycerin 1 inch 08/16/19 23:59 08/18/19 11:06 Nitro-Bid 2% Ointment TOP 08/18/19 23:59 1 inch Q6HR MARCELLA Administration Ranolazine 1,000 mg 08/16/19 21:00 08/18/19 08:24 Ranexa PO 1,000 mg BID MARCELLA Administration Saccharomyces Boulardii 250 mg 08/17/19 09:00 08/18/19 08:25 Florastor PO 250 mg DAILY MARCELLA Administration Senna/Docusate Sodium 2 tab 08/16/19 16:26 08/18/19 08:24 Senokot S PO 2 tab BIDPRN PRN Administration Constipation Simethicone 80 mg 08/18/19 13:29 08/18/19 13:55 Mylicon Chewable PO 80 mg PCHS PRN Administration Gas Pain - Exam General Appearance: NAD Heart: RRR, no gallops, no rubs Respiratory: CTAB, no rales, normal chest expansion Gastrointestinal: soft, non-distended, normal bowel sounds Extremities: no cyanosis Neurological: no new deficit Hosp A/P - Plan DVT proph w/lovenox, DVT proph w/SCDs 1. Non-ST elevation myocardial infarction. 2. Abdominal discomfort with nausea and vomiting - improved 3. Significant leukocytosis with bandemia. Etiology is unclear. 4. Coronary artery disease, status post coronary artery bypass grafting. 5. Paroxysmal atrial fibrillation. 6. Anxiety. 7. Chronic diastolic heart failure. 8. Uncontrolled hypertension. 9. Acute kidney injury on chronic kidney disease, stage 2. PLAN: Cont ASA/Plavix Cont Lovenox Cardio input appreciated Change Nitro to PO Cont Statins/Ranexa and other meds Restart Lasix AM labs Atbx dced Consult Palliative care
[2019-08-18] MEDS ORDERED: Furosemide 20 MG/2 ML VIAL SLOW IVP SCH (15:45)
[2019-08-18] MEDS: Sucralfate 1 GM TAB PO SCH ×2 (15:56→20:27)
[2019-08-18] MEDS ORDERED: Morphine 10 MG/0.5 ML ORAL SYRINGE SL PRN (16:20)
--- NOTE | 2019-08-18 16:25 | EKG ---
Test Reason : Blood Pressure : / mmHG Vent. Rate : 085 BPM Atrial Rate : 085 BPM P-R Int : 206 ms QRS Dur : 178 ms QT Int : 476 ms P-R-T Axes : 058 172 059 degrees QTc Int : 566 ms Normal sinus rhythm Possible Left atrial enlargement Right bundle branch block Abnormal ECG Confirmed by EYAD PATRICIA ([id number]) on 08/18/2019 4:24:57 PM Referred By: SOREN Confirmed By:EYAD PATRICIA
--- NOTE | 2019-08-18 18:21 | PRG ---
DATE OF SERVICE: 08/18/2019 SUBJECTIVE: Mr. Justin states he has not had any recurrent chest pain. He has had increased shortness of breath. He states all night. OBJECTIVE: VITAL SIGNS: Blood pressure 132/69, pulse 81, temperature 97.9. LUNGS: Crackles noted bilaterally. HEART: Regular rate and rhythm. ABDOMEN: Soft, nontender, nondistended. EXTREMITIES: No edema. PERTINENT LABORATORY DATA: Hemoglobin 12.4. IMPRESSION: 1. Severe coronary artery disease. 2. Non-Q-wave myocardial infarction. 3. Ischemic cardiomyopathy. 4. Status post bypass surgery. RECOMMENDATIONS: 1. Continue current medical therapy. 2. Conservative therapy recommended given previous anatomy noted during angiography last year. 3. Continue carvedilol 12.5 b.i.d., Plavix 75 daily. 4. Discontinue Lovenox in a.m. 5. Continue Lasix. At this point, there is no good option outside of medical therapy. Plan to release back to hospice once improved. Otherwise, I have no further recommendations. Job ID: [id number]
[2019-08-18] MEDS: Atorvastatin Calcium 40 MG TAB PO SCH (20:27)
[2019-08-18] MEDS ORDERED: Lorazepam 0.5 MG TAB PO SCH (21:30)
[2019-08-19 05:05] LABS: ALT (SGPT) 8 U/L (8-55); AST (SGOT) 12 U/L (5-34); Albumin 3.3 g/dL (3.5-5.0); Alkaline Phosphatase 86 U/L (40-110); Anion Gap 15 mmol/L (10-20); BUN (Urea Nitrogen) 34 mg/dL (8.4-25.7); Bilirubin, Total 0.9 mg/dL (0.2-1.2); Calc. Creatinine Clearance 56 mL/min (70-130); Calcium 8.6 mg/dL (7.8-10.44); Carbon Dioxide 22 mmol/L (22-29); Chloride 100 mmol/L (98-107); Estimated GFR-MDRD 62; Globulin 2.9 g/dL (2.4-3.5); Glucose 108 mg/dL (70-105); Potassium 3.6 mmol/L (3.5-5.1); Protein, Total 6.2 g/dL (6.0-8.3); Sodium 133 mmol/L (136-145)
[2019-08-19 05:21] LABS: #Lymphocytes 1.1 thou/uL (1.20-3.40); #Monocytes 1.2 thou/uL (0.11-0.59); #Neutrophils 15.7 thou/uL (1.40-6.50); %Basophils 0.2 % (0.0-1.0); %Eosinophils 0.1 % (0.0-10.0); %Lymphocytes 6.3 % (21.0-51.0); %Monocytes 6.6 % (0.0-10.0); %Neutrophils 86.7 % (42.0-75.0); Hemoglobin 11.8 g/dL (14.0-18.0); Large Platelets SLIGHT; MDiff Complete? YES; Mean Corpuscular HGB CONC 34.4 g/dL (32.0-36.0); Mean Corpuscular Volume 98.8 fL (78.0-98.0); Mean Platelet Volume 10.9 fL (7.4-10.4); Platelet Count 220 thou/uL (130-400); Platelet Morphology Comment Appears Adequate; RBC Distribution Width 13.6 % (11.5-14.5); Red Blood Cell (RBC) Count 3.47 mill/uL (4.70-6.10); White Blood Cell (WBC) Count 18.2 thou/uL (4.8-10.8)
[2019-08-19] MEDS ORDERED: Furosemide 40 MG TAB PO SCH (07:30)
[2019-08-19] MEDS: Enoxaparin Sodium 60 MG/0.6 ML SYRINGE SC SCH (07:41)
[2019-08-19] MEDS: Carvedilol 6.25 MG TAB PO SCH (07:41)
[2019-08-19] MEDS: Saccharomyces boulardii 250 MG CAP PO SCH (07:41)
[2019-08-19] MEDS: hydrALAZINE 25 MG TAB PO SCH (07:42)
[2019-08-19] MEDS: Aspirin 81 mg Enteric Coated Tablet PO SCH (07:42)
[2019-08-19] MEDS: Famotidine 20 MG TAB PO SCH (07:42)
[2019-08-19] MEDS: Clopidogrel Bisulfate 75 MG TAB PO SCH (07:43)
[2019-08-19] MEDS: Sucralfate 1 GM TAB PO SCH ×2 (07:43→12:46)
[2019-08-19 11:58] VITALS: TEMP 98.6
[2019-08-19 13:43] VITALS: BP 129/68
--- NOTE | 2019-08-19 15:19 | PDOC.PALCO ---
Palliative Care Consult - Consult Details Requesting Physician: Dr Coombs Reason for Consult: goals of care, assistance with communication prognosis/ disease - Pertinent HPI Mr Justin is well known to the Palliative Care Team. He was discharged home with Hospice secondary to terminal condition related to extensive cardiac disease. He states he has been well managed at home, however this past weekend he called hospice and they attempted to mitigate chest pain,nausea, and vomiting with medications, however Mr Justin elected to seek care at the emergency room, family called 911 as no measures fully alleviated symptoms. In the emergency room he was noted to be in sinus tachycardia with right bundle branch block, ST elevation and admitted for medical management. Mr Justin was seen by cardiology, and again it was discussed limited options for intervention secondary to severity of cardiac disease. - Pertinent PMH CAD, HTN, Heart failure, HX of RI, PVD, anxiety/depression - Social History Smoking Status: Former smoker Smoking: quit less than 1 year Alcohol Use: rarely Drug Use History: other Living Situation: independent, with partner - Medications MAR Reviewed: Yes - Allergies Allergies/Adverse Reactions: Allergies Allergy/AdvReac Type Severity Reaction Status Date / Time No Known Drug Allergies Allergy Verified 08/16/19 22:53 - Subjective Awake, alert, denies chest discomfort at time of assessment. Continues with shortness of breath - ROS Constitutional: alert, weakness ENT: other (negative for congestion, sore throat) Respiratory: shortness of breath with extertion Cardiology: palpitations (Intermittant) Gastrointestinal: other (Currently denies nausea or vomiting) Genitourinary: other (negative for frequency or hematuria) Musculoskeletal: arthritis/arthralgias, other Psychological: anxiety - Objective Vital Signs: Vital Signs - Most Recent Temp Pulse Resp BP Pulse Ox 98.6 F 78 14 138/75 94 L 08/19/19 11:56 08/19/19 11:56 08/19/19 11:56 08/19/19 11:56 08/19/19 11:56 - Physical Exam Constitutional: cachectic, mild distress HEENT: moist MMs, sclera anicteric Respiratory: labored respirations Deviation from normal: bilaterally adventicious Cardiovascular: RRR Gastrointestinal: positive bowel sounds Deviation from normal: Mild tenderness Genitourinary: continent Musculoskeletal: no clubbing, pulses present Neurology: moves all 4 limbs, no focal deficits Skin: cap refill <2 seconds, no lesions, no rash Psychiatric: A&O x 3, depressed - Problem List (1) Acute on chronic diastolic CHF (congestive heart failure) Code(s): I50.33 - ACUTE ON CHRONIC DIASTOLIC (CONGESTIVE) HEART FAILURE Status : Acute (2) Chest pain Code(s): R07.9 - CHEST PAIN, UNSPECIFIED Status: Acute Qualifiers: Chest pain type: precordial pain Qualified Code(s): R07.2 - Precordial pain (3) NSTEMI (non-ST elevated myocardial infarction) Code(s): I21.4 - NON-ST ELEVATION (NSTEMI) MYOCARDIAL INFARCTION Status: Acute (4) Palliative care encounter Code(s): Z51.5 - ENCOUNTER FOR PALLIATIVE CARE Status: Acute - Plan/Recommendations Plan: Added Roxinal for shortness of breath Education with patient of trajectory of his cardiac disease utilizing teach back method. Communicated with Hospice company, discussed measures to assist with understanding of terminal condition and measures to mitigate not only physical response but emotional as well. Suggested adding Clonazepam BID to mitigate anxiety. Communicated with Dr Coombs Emotional support related to terminal condition and Therapeutic listening. [50] minutes spent on this encounter with >50% of the time in counseling and coordination of care. Thank you for this very appropriate consult.
--- NOTE | 2019-08-19 16:00 | DIS ---
DATE OF ADMISSION: 08/16/2019 DATE OF DISCHARGE: 08/19/2019 DISCHARGE DISPOSITION: The patient left against medical advice. Please note that I was unable to assess the patient on the day of discharge. BRIEF HOSPITAL COURSE: The patient is a 54-year-old male with coronary artery disease, hypertension, and congestive heart failure, presented to the hospital with nausea along with chest and abdominal discomfort. His workup was consistent with [id number] DC. Due to abdominal discomfort, a CT scan of the abdomen and pelvis with contrast was obtained, that was negative for acute pathology. It showed 4 cm dilatation of the descending thoracic aorta. 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 These findings are chronic. He was monitored on telemetry unit. He was started on 1 mg/kg Lovenox. Aspirin and Plavix were continued. He was placed on nitroglycerin patch. Chest discomfort and abdominal discomfort gradually improved. The abdominal discomfort was probably anginal equivalent per Cardiology. He denied any nausea yesterday. He also had leukocytosis with bandemia of unclear etiology. Earlier today, the patient left against medical advise. I was unable to assess the patient on the day of discharge since the patient had already left the building. FINAL DIAGNOSES: 1. Non-ST elevation myocardial infarction. 2. Abdominal discomfort with nausea and vomiting, improved. 3. Significant leukocytosis with bandemia of unclear etiology. 4. Coronary artery disease, status post coronary artery bypass grafting. 5. Paroxysmal atrial fibrillation. 6. Anxiety. 7. Chronic diastolic heart failure. 8. Uncontrolled hypertension, improved. 9. Acute kidney injury on chronic kidney disease stage 2. Please note that the patient revoked Hospice prior to admission. I have notified Palliative Care Team. We will try to contact hospice agency if he can be placed back on hospice. Job ID: [id number]
--- NOTE | 2019-08-21 23:36 | PQF ---
[employer] Winform Viewer YENNIFER JENSEN MALIK MD [id number] [address] [place] [address] [id number] CLINICAL DOCUMENTATION CLARIFICATION FORM: POST DISCHARGE Addendum to original discharge summary date: ____ Late entry note date: __ DATE: 08/21/19 ATTN: Rey Coombs Please exercise your independent, professional judgment in responding to the clarification form. Clinical indicators are provided on the bottom of this form for your review Can you please further clarify the diagnosis of the patient? Please check appropriate box(s): Conflicting documentation was noted in the Medical Record, please clarify if patient is being treated/monitored for: [ ] Chronic Diastolic CHF [ x] Acute on chronic diastolic CHF [ ] Other diagnosis please specify [ ] Unable to determine In addition, please specify: Present on Admission (POA): [x ] Yes [ ] No [ ] Unable to determine For continuity of documentation, please document condition throughout progress notes and discharge summary. Thank You. CLINICAL INDICATORS - SIGNS / SYMPTOMS/ LABS Laboratory- BNP 515.4, 3414.0H Palliative Consult pg.2- acute on chronic diastolic CHF DS pg.1- chronic diastolic heart failure Chest X ray- stable chest findings without acute process RISK FACTORS NSTEMI- DS pg.1 Paroxysmal Afib- DS pg.1 Anxiety- DS pg.1 HTN- H and P pg.1 ALISON on CKD2- DS pg.1 TREATMENT Chest X ray 08/15 Electrocardiogram 08/[address] Calixto Lasix 20mg IV MAR Lasix 40mg PO- MAR (This form is maintained as a part of the permanent medical record) 2014 [employer] All Rights Reserved [email or web address]
== END 2019-08-19 14:50 | disposition left against medical advice (07) | DRG 280 ==
LOC: ERS 11:29 → 2SW 15:23 → OBSVTOIN 15:23 → 2NO 08-17 17:28
PROVIDERS: ADMIT Internal Medicine; ATTEND Internal Medicine
DX: I21.4 Non-ST elevation (NSTEMI) myocardial infarction (principal); I50.33 Acute on chronic diastolic (congestive) heart failure; I13.0 Hypertensive heart and chronic kidney disease with heart failure and stage 1 through stage 4 chronic kidney disease, or unspecified chronic kidney disease; N17.9 Acute kidney failure, unspecified; Z51.5 Encounter for palliative care; Z20.828 Contact with and (suspected) exposure to other viral communicable diseases; I25.119 Atherosclerotic heart disease of native coronary artery with unspecified angina pectoris; E78.5 Hyperlipidemia, unspecified; E78.00 Pure hypercholesterolemia, unspecified; F41.9 Anxiety disorder, unspecified; F32.9 Major depressive disorder, single episode, unspecified; I73.9 Peripheral vascular disease, unspecified; F17.210 Nicotine dependence, cigarettes, uncomplicated; D72.829 Elevated white blood cell count, unspecified; N18.2 Chronic kidney disease, stage 2 (mild); I48.0 Paroxysmal atrial fibrillation; R10.9 Unspecified abdominal pain; I70.1 Atherosclerosis of renal artery; I25.5 Ischemic cardiomyopathy; Z53.29 Procedure and treatment not carried out because of patient's decision for other reasons; Z79.899 Other long term (current) drug therapy; Z79.01 Long term (current) use of anticoagulants; Z95.1 Presence of aortocoronary bypass graft; I25.2 Old myocardial infarction; Z90.49 Acquired absence of other specified parts of digestive tract
CPT/HCPCS: 36415; 71045; 74177; 80048; 80053; 81001; 82553; 83605; 83690; 83735; 83880; 84484; 85025; 85610; 85730; 87040; 87086; 87635; 93005; 93010; 93798; 94760; 96361; 96365; 96366; 96367; 96375; 96376; J0692; J1644; J1650; J1940; J2270; J2405; J3010; J3370; J3490; J7050; Q9967; U0003

== ENCOUNTER 2019-11-29 17:51 | Emergency (ER) | payer MEDICAID ==
[~2019-11-29 17:51] MED LIST changes: +Iopamidol 370 76% 50 ML VIAL FS ONE
[2019-11-29 20:09] LABS: Mean Corpuscular HGB CONC 33.3 g/dL (32.0-36.0); Mean Corpuscular Hemoglobin 33.5 pg (27.0-31.0); Mean Platelet Volume 10.6 fL (7.4-10.4); Platelet Count 174 thou/uL (130-400); RBC Distribution Width 13.8 % (11.5-14.5); Red Blood Cell (RBC) Count 4.48 mill/uL (4.70-6.10); White Blood Cell (WBC) Count 20.8 thou/uL (4.8-10.8)
[2019-11-29 20:23] LABS: Band 2 % (5-11); Lymphocytes 15 % (21-51); MDiff Complete? YES; Monocytes 3 % (0-10); Neutrophil 79 % (42-75); Platelet Clumps SLIGHT; Platelet Morphology Comment Appears Adequate; RBC Morphology Normal
[2019-11-29 20:29] LABS: ALT (SGPT) 12 U/L (8-55); AST (SGOT) 22 U/L (5-34); Albumin 3.7 g/dL (3.5-5.0); Alkaline Phosphatase 108 U/L (40-110); Anion Gap 18 mmol/L (10-20); BUN (Urea Nitrogen) 20 mg/dL (8.4-25.7); Bilirubin, Total 0.5 mg/dL (0.2-1.2); Calc. Creatinine Clearance 0 mL/min (70-130); Calcium 9.1 mg/dL (7.8-10.44); Carbon Dioxide 21 mmol/L (22-29); Chloride 100 mmol/L (98-107); Estimated GFR-MDRD 70; Globulin 3.5 g/dL (2.4-3.5); Glucose 86 mg/dL (70-105); Lipase 12 U/L (8-78); Potassium 5.2 mmol/L (3.5-5.1); Protein, Total 7.2 g/dL (6.0-8.3); Sodium 134 mmol/L (136-145)
[2019-11-29] MEDS ORDERED: Ketorolac Tromethamine 30 MG/ML VIAL ONE (20:52)
--- NOTE | 2019-11-29 22:17 | CT ---
CT Appendix Protocol History: Pain Comparison: CT examination August 16, 2019 Findings: Bullous formation left lung base. No pericardial effusion. Occluded aorta just after the ri ght renal artery. Minimal contrast within the left renal artery. Collateral vessels feed the celiac trunk, superior mesenteric arteries, and left renal artery. Portal vein is patent. The spleen is small from chronic ischemia. Pancreas unremarkable. Large inferior epigastric vessels feeding the majority of the abdominal organs. 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 Mildly thickened loops of proximal smal l bowel. No evidence for obstruction. The appendix is felt to be visualized and is normal. No acute osseous abnormality. Impression: Mild proximal and distal small bowel wall thickening may be sequelae of a chronic low-grade ischemia versus enteritis. Majority of the findings are similar to the August 16, 2019 exam.
== END 2019-11-29 23:25 | disposition home or self-care (01) ==
LOC: ERS 17:51
DX: R14.1 Gas pain (principal); I25.10 Atherosclerotic heart disease of native coronary artery without angina pectoris; R10.813 Right lower quadrant abdominal tenderness; R63.0 Anorexia; R11.2 Nausea with vomiting, unspecified; I11.0 Hypertensive heart disease with heart failure; I50.9 Heart failure, unspecified; E78.00 Pure hypercholesterolemia, unspecified; I25.2 Old myocardial infarction; F41.9 Anxiety disorder, unspecified; F32.9 Major depressive disorder, single episode, unspecified; Z86.73 Personal history of transient ischemic attack (TIA), and cerebral infarction without residual deficits; Z79.899 Other long term (current) drug therapy
CPT/HCPCS: 36415; 74177; 80053; 83690; 85025; 96374; J1885; Q9967